=== PATIENT | female | born 1990 | race Caucasian/White ===

== ENCOUNTER 2017-01-21 11:51 | Emergency (ER) | payer MEDICAID, SELFPAY | END 2017-01-21 13:48 | disposition home or self-care (01) | PROVIDERS: Emergency Provider Emergency Medicine; Visit Provider Emergency Medicine | DX: F41.9 Anxiety disorder, unspecified (principal); Z79.899 Other long term (current) drug therapy | CPT/HCPCS: 93005; 99282 ==

== ENCOUNTER 2017-02-05 16:16 | Emergency (ER) | payer MEDICAID, SELFPAY | END 2017-02-05 16:41 | disposition home or self-care (01) | PROVIDERS: Family Provider Internal Medicine Adolescent Medicine | DX: J20.9 Acute bronchitis, unspecified (principal); F17.210 Nicotine dependence, cigarettes, uncomplicated | CPT/HCPCS: 87804; 87880 ==

== ENCOUNTER 2017-02-20 08:58 | Emergency (ER) | payer MEDICAID, SELFPAY ==
[2017-02-20 09:13] VITALS: BP 115/73; PULSE 91; RESP 18; TEMP 37.4; O2SAT 98; BMI 19.7
--- NOTE | 2017-02-20 09:17 | HMH.EDUTC ---
[facility] [place] Clinical Impression: Viral upper respiratory illness Disposition: Home, Self-Care Condition on Discharge: Good Instructions: Sore Throat, DI for Fever (Symptom) -- Adult Additional Instructions: * Monitor Temp. Tylenol and/or Ibuprofen as needed. ER if fever is no less than 101 despite alternating Tylenol and Ibuprofen * Encourage fluids, water, Gatorade, powerade, pedialyte if infant/toddler/or child * Warm salt water gargles for throat irritation *Warm fluids *Sore throat lozenges *Sleep elevated *humidifier or vaporizer Lots of rest Increase fluids, water, Gatorade, powerade Return if symptoms worsen or do not improve Prescriptions: Brompheniramine/Pseudoephed/Dm [Bromfed DM Cough Syrup 5mL] 10 ml PO Q4H #200 syrup Referrals: Ga Adair MD [Primary Care Provider] - Forms: Work/School Release Time of Disposition: 09:35 Medical Decision Making - Medical Records Medical records reviewed: Yes: I reviewed the patient's medical records. Vital Signs: 02/20/17 09:13 Temperature 99.4 F Temperature Source Temporal Artery Scan Pulse Rate [Right Radial] 91 H Respiratory Rate 18 Blood Pressure [Right Arm] 115/73 Blood Pressure Mean [Right Arm] 87 Blood Pressure Source [Right Arm] Automatic Cuff Blood Pressure Position [Right Arm] Sitting 02 Sat by Pulse Oximetry 98 Oxygen Delivery Method Room Air - Liborio Inquiry Pt receiving controlled substance: No Liborio was queried for this patient: No [facility] [place] - General Stated complaint: body aches sore throat headache Mode of Arrival: Family Vehicle Source of Information: Patient Limitations: No Limitations Description of Symptoms (Recalled from Triage Doc. by RN): flu like symptoms with fevers. HEENT Symptoms (Recalled from RN notes): Yes Resp Symptoms (Recalled from RN notes): Yes (flu like symptoms) Skin Symptoms (Recalled from RN notes): No MS Symptoms (Recalled from RN notes): No Functional Status (Recalled from RN notes): na - History of Present Illness Provider Complaint: Patient state that her roomate recently had that flu. State that she is having body aches, fever, chills and sore throat. States that she feels like she has the flu. State that symptoms began yesterday and got worse over night and this morning she feels worse. - Related Data Home Medications Medication Instructions Recorded Confirmed PARoxetine HCl [Paxil] 20 mg PO DAILY 02/20/17 02/20/17 hydrOXYzine pamoate [Hydroxyzine 50 mg PO QID 02/20/17 02/20/17 Pamoate] Previous Rx's Medication Instructions Recorded Brompheniramine/Pseudoephed/Dm 10 ml PO Q4H #200 syrup 02/20/17 [Bromfed DM Cough Syrup 5mL] Allergies Allergy/AdvReac Type Severity Reaction Status Date / Time latex [LATEX] Allergy Unknown Verified 02/20/17 09:18 - Worker's Comp Is this a Worker's Comp case?: No H History I have reviewed the patient's past medical history: Yes Medical History: Denies:: Cancer, Diabetes Mellitus Type 1, Diabetes Mellitus Type 2, MRSA Amputation: No Fractures: No - *Social History Smoking Status: Current every day smoker Tobacco Type: cigarettes Alcohol Intake: never - Psychiatric History Expresses thoughts of harming self/others: None Suicide Plan Description: No Plan ROS Obtained: Yes All systems reviewed & no additional complaints - Constitutional Constitutional: Reports body ache, Reports chills, Reports fever(s) - ENT Ears, Nose, Mouth, and Throat: Reports sore throat - Cardiovascular Cardiovascular: Denies chest pain - Respiratory Respiratory: Yes cough, Yes non-productive cough Physical Exam - General General appearance: alert, in no apparent distress - Expanded ENT Exam Nose exam: Present: sinus tenderness Comment: Throat red, irritated, no exudate - Respiratory Respiratory exam: Present: normal lung sounds bilaterally. Absent: respiratory distress - Cardiovascular Cardiovascular exam: Presen
--- NOTE | 2017-02-20 09:21 | ED_ITS ---
[facility] [place] Dis[place] Clinical Impression: Viral upper respiratory illness Disposition: Home, Self-Care Condition on Discharge: Good Instructions: Sore Throat, DI for Fever (Symptom) -- Adult Additional Instructions: * Monitor Temp. Tylenol and/or Ibuprofen as needed. ER if fever is no less than 101 despite alternating Tylenol and Ibuprofen * Encourage fluids, water, Gatorade, powerade, pedialyte if infant/toddler/or child * Warm salt water gargles for throat irritation *Warm fluids *Sore throat lozenges *Sleep elevated *humidifier or vaporizer Lots of rest Increase fluids, water, Gatorade, powerade Return if symptoms worsen or do not improve Prescriptions: Brompheniramine/Pseudoephed/Dm [Bromfed DM Cough Syrup 5mL] 10 ml PO Q4H #200 syrup Referrals: Ga Adair MD [Primary Care Provider] - Forms: Work/School Release Time of Disposition: 09:35 Medical Decision Making - Medical Records Medical records reviewed: Yes: I reviewed the patient's medical records. Vital Signs: 02/20/17 09:13 Temperature 99.4 F Temperature Source Temporal Artery Scan Pulse Rate [Right Radial] 91 H Respiratory Rate 18 Blood Pressure [Right Arm] 115/73 Blood Pressure Mean [Right Arm] 87 Blood Pressure Source [Right Arm] Automatic Cuff Blood Pressure Position [Right Arm] Sitting 02 Sat by Pulse Oximetry 98 Oxygen Delivery Method Room Air - Liborio Inquiry Pt receiving controlled substance: No Liborio was queried for this patient: No [facility] [place] HPI - General Stated complaint: body aches sore throat headache Mode of Arrival: Family Vehicle Source of Information: Patient Limitations: No Limitations Description of Symptoms (Recalled from Triage Doc. by RN): flu like symptoms with fevers. HEENT Symptoms (Recalled from RN notes): Yes Resp Symptoms (Recalled from RN notes): Yes (flu like symptoms) Skin Symptoms (Recalled from RN notes): No MS Symptoms (Recalled from RN notes): No Functional Status (Recalled from RN notes): na - History of Present Illness Provider Complaint: Patient state that her roomate recently had that flu. State that she is having body aches, fever, chills and sore throat. States that she feels like she has the flu. State that symptoms began yesterday and got worse over night and this morning she feels worse. - Related Data Home Medications Medication Instructions Recorded Confirmed PARoxetine HCl [Paxil] 20 mg PO DAILY 02/20/17 02/20/17 hydrOXYzine pamoate [Hydroxyzine 50 mg PO QID 02/20/17 02/20/17 Pamoate] Previous Rx's Medication Instructions Recorded Brompheniramine/Pseudoephed/Dm 10 ml PO Q4H #200 syrup 02/20/17 [Bromfed DM Cough Syrup 5mL] Allergies Allergy/AdvReac Type Severity Reaction Status Date / Time latex [LATEX] Allergy Unknown Verified 02/20/17 09:18 - Worker's Comp Is this a Worker's Comp case?: No H History I have reviewed the patient's past medical history: Yes Medical History: Denies:: Cancer, Diabetes Mellitus Type 1, Diabetes Mellitus Type 2, MRSA Amputation: No Fractures: No - *Social History Smoking Status: Current every day smoker Tobacco Type: cigarettes Alcohol Intake: never - Psychiatric History Expresses thoughts of harming self/others: None Suicide Plan Description: No Plan ROS Obtained: Yes All justin
[2017-02-20 09:27] LABS: UTC Influenza A Antigen Negative (Negative); UTC Influenza B Antigen Negative (Negative)
== END 2017-02-20 09:39 | disposition home or self-care (01) ==
PROVIDERS: Emergency Provider Nurse Practitioner; Family Provider Internal Medicine Adolescent Medicine; PCP Family Medicine
DX: J06.9 Acute upper respiratory infection, unspecified (principal); Z91.040 Latex allergy status; F17.210 Nicotine dependence, cigarettes, uncomplicated
CPT/HCPCS: 87804; 99202

== ENCOUNTER 2017-04-05 09:17 | Emergency (ER) | payer MEDICAID, SELFPAY ==
[2017-04-05 09:29] VITALS: BP 122/74; PULSE 102; RESP 18; TEMP 36.8; O2SAT 98; BMI 19.3
--- NOTE | 2017-04-05 09:36 | HMH.EDUTC ---
[facility] [place] Disposition Clinical Impression: Negative test Disposition: Home, Self-Care Condition on Discharge: Good Additional Instructions: Follow up with family doctor Return if needed Follow up with OBGYN Referrals: Ga Adair MD [Primary Care Provider] - Time of Disposition: 10:11 Medical Decision Making - Medical Records Medical records reviewed: Yes: I reviewed the patient's medical records. Vital Signs: 04/05/17 09:29 Temperature 98.2 F Temperature Source Temporal Artery Scan Pulse Rate [Right] 102 H Respiratory Rate 18 Blood Pressure [Right Arm] 122/74 Blood Pressure Mean [Right Arm] 90 02 Sat by Pulse Oximetry 98 Oxygen Delivery Method Room Air - Lab Data Lab Results 04/05/17 09:45: Serum HCG, Qual Negative - Liborio Inquiry Pt receiving controlled substance: No Liborio was queried for this patient: No - Reevaluation(s) Time: 10:10 Reevaluation #1: Lab results of negative discussed with patient and informed her about safe sexual practice to prevent unwanted [facility] [place] HPI - General Stated complaint: wants a blood test Mode of Arrival: Ambulatory Source of Information: Patient Limitations: No Limitations Description of Symptoms (Recalled from Triage Doc. by RN): WANTS A BLOOD TEST DONE HEENT Symptoms (Recalled from RN notes): No Resp Symptoms (Recalled from RN notes): No Skin Symptoms (Recalled from RN notes): No MS Symptoms (Recalled from RN notes): No Functional Status (Recalled from RN notes): N - History of Present Illness Provider Complaint: Patient states that she took a home test and not sure if she saw a faint line or not and was worried that she may be so she came in to get a blood test to find out for sure - Related Data Home Medications Medication Instructions Recorded Confirmed PARoxetine HCl [Paxil] 20 mg PO DAILY 02/20/17 02/20/17 hydrOXYzine pamoate [Hydroxyzine 50 mg PO QID 02/20/17 02/20/17 Pamoate] Previous Rx's Medication Instructions Recorded Brompheniramine/Pseudoephed/Dm 10 ml PO Q4H #200 syrup 02/20/17 [Bromfed DM Cough Syrup 5mL] Allergies Allergy/AdvReac Type Severity Reaction Status Date / Time latex [LATEX] Allergy Unknown Verified 03/07/17 16:11 - Worker's Comp Is this a Worker's Comp case?: No [facility] History I have reviewed the patient's past medical history: Yes Medical History: Denies:: Cancer, Diabetes Mellitus Type 1, Diabetes Mellitus Type 2, MRSA Comment: kidney stones Amputation: No Fractures: No - Social History Smoking Status: Current every day smoker Tobacco Type: cigarettes # Packs/Day (cigarettes): 10 Alcohol Intake: never - Psychiatric History Expresses thoughts of harming self/others: None Suicide Plan Description: No Plan Family Hx:: Diabetes ROS Obtained: Yes All systems reviewed & no additional complaints Physical Exam - General General appearance: alert, in no apparent distress - Respiratory Respiratory exam: Present: normal lung sounds bilaterally. Absent: respiratory distress - Cardiovascular Cardiovascular exam: Present: regular rate, normal rhythm. Absent: JVD - Neurological Exam Neurological exam: Present: alert, oriented X3
--- NOTE | 2017-04-05 09:39 | ED_ITS ---
[facility] [place] Disposition Clinical Impression: Negative test Disposition: Home, Self-Care Condition on Discharge: Good Additional Instructions: Follow up with family doctor Return if needed Follow up with OBGYN Referrals: Ga Adair MD [Primary Care Provider] - Time of Disposition: 10:11 Medical Decision Making - Medical Records Medical records reviewed: Yes: I reviewed the patient's medical records. Vital Signs: 04/05/17 09:29 Temperature 98.2 F Temperature Source Temporal Artery Scan Pulse Rate [Right] 102 H Respiratory Rate 18 Blood Pressure [Right Arm] 122/74 Blood Pressure Mean [Right Arm] 90 02 Sat by Pulse Oximetry 98 Oxygen Delivery Method Room Air - Lab Data Lab Results 04/05/17 09:45: Serum HCG, Qual Negative - Liborio Inquiry Pt receiving controlled substance: No Liborio was queried for this patient: No - Reevaluation(s) Time: 10:10 Reevaluation #1: Lab results of negative discussed with patient and informed her about safe sexual practice to prevent unwanted [facility] [place] HPI - General Stated complaint: wants a blood test Mode of Arrival: Ambulatory Source of Information: Patient Limitations: No Limitations Description of Symptoms (Recalled from Triage Doc. by RN): WANTS A BLOOD TEST DONE HEENT Symptoms (Recalled from RN notes): No Resp Symptoms (Recalled from RN notes): No Skin Symptoms (Recalled from RN notes): No MS Symptoms (Recalled from RN notes): No Functional Status (Recalled from RN notes): N - History of Present Illness Provider Complaint: Patient states that she took a home test and not sure if she saw a faint line or not and was worried that she may be so she came in to get a blood test to find out for sure - Related Data Home Medications Medication Instructions Recorded Confirmed PARoxetine HCl [Paxil] 20 mg PO DAILY 02/20/17 02/20/17 hydrOXYzine pamoate [Hydroxyzine 50 mg PO QID 02/20/17 02/20/17 Pamoate] Previous Rx's Medication Instructions Recorded Brompheniramine/Pseudoephed/Dm 10 ml PO Q4H #200 syrup 02/20/17 [Bromfed DM Cough Syrup 5mL] Allergies Allergy/AdvReac Type Severity Reaction Status Date / Time latex [LATEX] Allergy Unknown Verified 03/07/17 16:11 - Worker's Comp Is this a Worker's Comp case?: No [facility] History I have reviewed the patient's past medical history: Yes Medical History: Denies:: Cancer, Diabetes Mellitus Type 1, Diabetes Mellitus Type 2, MRSA Comment: kidney stones Amputation: No Fractures: No - Social History Smoking Status: Current every day smoker Tobacco Type: cigarettes # Packs/Day (cigarettes): 10 Alcohol Intake: never - Psychiatric History Expresses thoughts of harming self/others: None Suicide Plan Description: No Plan Family Hx:: Diabetes ROS Obtained: Yes All systems reviewed & no additional complaints Physical Exam - General General appearance: alert, in no apparent distress - Respiratory Respiratory exam: Present: normal lung sounds bilaterally. Absent: respiratory distress - Cardiovascular Cardiovascular exam: Present: regular rate, normal rhythm. Absent: JVD - Neurological Exam Neurological exam: Present: alert, or
[2017-04-05 10:05] LABS: HCG Qualitative, Serum Negative (Negative)
[2017-04-05 10:13] LABS: UTC Pregnancy Test, Urine Negative (Negative)
[2017-04-05 10:18] VITALS: BP 120/74; PULSE 88; RESP 16; TEMP 36.8
== END 2017-04-05 10:20 | disposition home or self-care (01) ==
PROVIDERS: Emergency Provider Nurse Practitioner; Family Provider Internal Medicine Adolescent Medicine; PCP Family Medicine
DX: Z32.02 Encounter for pregnancy test, result negative (principal); Z72.0 Tobacco use
CPT/HCPCS: 81025; 84703; 99202

== ENCOUNTER 2017-04-25 09:20 | Emergency (ER) | payer MEDICAID, SELFPAY ==
[2017-04-25 09:38] VITALS: BP 106/63; PULSE 97; RESP 20; TEMP 36.9; O2SAT 98; BMI 19.3
[2017-04-25 10:02] LABS: UTC Pregnancy Test, Urine Negative (Negative)
--- NOTE | 2017-04-25 10:03 | HMH.EDUTC ---
[facility] [place] Clinical Impression: confirmed by positive blood test, Suprapubic pain, acute, Spotting UTI (urinary tract infection) Qualifiers: Urinary tract infection type: site unspecified Hematuria presence: with hematuria Qualified Code(s): N39.0 - Urinary tract infection, site not specified Disposition: Still a Patient Condition on Discharge: Fair Time of Disposition: 10:45 (transfer to ER) Medical Decision Making - Liborio Inquiry Pt receiving controlled substance: No Vital Signs: 04/25/17 09:38 Temperature 98.4 F Temperature Source Oral Pulse Rate [Right Radial] 97 H Respiratory Rate 20 Blood Pressure [Right Arm] 106/63 Blood Pressure Mean [Right Arm] 77 02 Sat by Pulse Oximetry 98 Oxygen Delivery Method Room Air - Lab Data Lab results reviewed: Yes: I reviewed the patient's lab results. Lab Results 04/25/17 09:31: [facility] Negative 04/25/17 09:51: Serum HCG, Qual Positive 04/25/17 10:06: Urine Color Yellow, Urine Appearance Cloudy, Urine pH 6.0, Ur Specific [place] 1.025, Urine Protein Negative, Urine Glucose (UA) Negative, Urine Ketones Negative, Urine Blood Trace, Urine Nitrate Negative, Urine Bilirubin Negative, Urine Urobilinogen 0.2, Ur Leukocyte Esterase 1+ A Orders (Tests/Meds): ORDERS Category Date Time Status Urine Culture Stat Micro 04/25/17 10:10 Received - Reevaluation(s) Reevaluation #1: Pt aware of negative urine . Wants blood test. Pt aware of concerning dark, cloudy urine with foul odor. Agrees to U/A. Discussed U/A results and how they can correlate to symptoms. pt wanting transferred to ER for pelvic ultrasound to ensure everything ok . Discussed approximate gestation based on LMP and her symptoms. Aware transfer to ER does not guarantee a further evaluation and may be directed to follow up with Dr. Perez. States + understanding and still requesting transfer to ER. 1047: Report given to Denise [facility] and Dr. Pisano ER . Pt to room 9. [facility] [place] - General Stated complaint: check to see if Time Seen by Provider: 04/25/17 10:03 Mode of Arrival: Family Vehicle Source of Information: Patient Limitations: No Limitations Description of Symptoms (Recalled from Triage Doc. by RN): PT STATES SHE HAS HAD 4 POSITIVE HOME TEST. HEENT Symptoms (Recalled from RN notes): No Resp Symptoms (Recalled from RN notes): No Skin Symptoms (Recalled from RN notes): No MS Symptoms (Recalled from RN notes): No Functional Status (Recalled from RN notes): NA - History of Present Illness Provider Complaint: c/o need for blood test. Five home test were positive yesterday and pt isn't sure what to believe. Has upcoming appt w/ Dr. Perez on May 12. Worried about spotting yesterday and suprapubic cramping intermittently. LMP 03/09. On several medications for anxiety but pt reports she hasn't been taking them. One living 2 year old at home. - Related Data Home Medications Medication Instructions Recorded Confirmed PARoxetine HCl [Paxil] 20 mg PO DAILY 02/20/17 04/25/17 Gabapentin [Gabapentin 300mg Cap] 300 mg PO DAILY 04/25/17 04/25/17 clonazePAM [Klonopin 1mg tablet] 1 mg PO DAILY 04/25/17 04/25/17 diazePAM [diazePAM 5mg Tablet] 5 mg PO DAILY 04/25/17 04/25/17 Allergies Allergy/AdvReac Type Severity Reaction Status Date / Time latex [LATEX] Allergy Unknown Verified 04/25/17 09:46 - Worker's Comp Is this a Worker's Comp case?: No [facility] History I have reviewed the patient's past medical history: Yes Medical History: Reports:: Anxiety Denies:: Cancer, Diabetes Mellitus Type 1, Diabetes Mellitus Type 2, Hypertension, MRSA Comment: kidney stones Amputation: No Fractures: No - Social History Smoking Status: Current every day smoker Tobacco Type: cigarettes # Packs/Day (cigarettes): 10 Alcohol Intake: never - Psychiatric History Expresses thoughts of harming self/others: None Suicide Plan Desc
--- NOTE | 2017-04-25 10:08 | ED_ITS ---
[facility] [place] [place]ression: confirmed by positive blood test, Suprapubic pain, acute, Spotting UTI (urinary tract infection) Qualifiers: Urinary tract infection type: site unspecified Hematuria presence: with hematuria Qualified Code(s): N39.0 - Urinary tract infection, site not specified Disposition: Still a Patient Condition on Discharge: Fair Time of Disposition: 10:45 (transfer to ER) Medical Decision Making - Liborio Inquiry Pt receiving controlled substance: No Vital Signs: 04/25/17 09:38 Temperature 98.4 F Temperature Source Oral Pulse Rate [Right Radial] 97 H Respiratory Rate 20 Blood Pressure [Right Arm] 106/63 Blood Pressure Mean [Right Arm] 77 02 Sat by Pulse Oximetry 98 Oxygen Delivery Method Room Air - Lab Data Lab results reviewed: Yes: I reviewed the patient's lab results. Lab Results 04/25/17 09:31: [facility] Negative 04/25/17 09:51: Serum HCG, Qual Positive 04/25/17 10:06: Urine Color Yellow, Urine Appearance Cloudy, Urine pH 6.0, Ur Specific [place] 1.025, Urine Protein Negative, Urine Glucose (UA) Negative, Urine Ketones Negative, Urine Blood Trace, Urine Nitrate Negative, Urine Bilirubin Negative, Urine Urobilinogen 0.2, Ur Leukocyte Esterase 1+ A Orders (Tests/Meds): ORDERS Category Date Time Status Urine Culture Stat Micro 04/25/17 10:10 Received - Reevaluation(s) Reevaluation #1: Pt aware of negative urine . Wants blood test. Pt aware of concerning dark, cloudy urine with foul odor. Agrees to U/A. Discussed U/A results and how they can correlate to symptoms. pt wanting transferred to ER for pelvic ultrasound to ensure everything ok . Discussed approximate gestation based on LMP and her symptoms. Aware transfer to ER does not guarantee a further evaluation and may be directed to follow up with Dr. Perez. States + understanding and still requesting transfer to ER. 1047: Report given to Denise WELT SEWER and Dr. Pisano ER . Pt to room 9. [facility] [place] General Stated complaint: check to see if Time Seen by Provider: 04/25/17 10:03 Mode of Arrival: Family Vehicle Source of Information: Patient Limitations: No Limitations Description of Symptoms (Recalled from Triage Doc. by RN): PT STATES SHE HAS HAD 4 POSITIVE HOME TEST. HEENT Symptoms (Recalled from RN notes): No Resp Symptoms (Recalled from RN notes): No Skin Symptoms (Recalled from RN notes): No MS Symptoms (Recalled from RN notes): No Functional Status (Recalled from RN notes): NA - History of Present Illness Provider Complaint: c/o need for blood test. Five home test were positive yesterday and pt isn't sure what to believe. Has upcoming appt w/ Dr. Perez on May 12. Worried about spotting yesterday and suprapubic cramping intermittently. LMP 2/. On several medications for anxiety but pt reports she hasn't been taking them. One living 2 year old at home. - Related Data Home Medications Medication Instructions Recorded Confirmed PARoxetine HCl [Paxil] 20 mg PO DAILY 02/20/17 04/25/17 Gabapentin [Gabapentin 300mg Cap] 300 mg PO DAILY 04/25/17 04/25/17 clonazePAM [Klonopin 1mg tablet] 1 mg PO DAILY 04/25/17 04/25/17 diazePAM [diazePAM 5mg Tablet] 5 mg PO DAILY 04/25/17 04/25/17 Allergies Allergy/AdvReac Type Severity Reaction Status Date / Time latex [LATEX] Allergy Unknown [facility]
[2017-04-25 10:17] LABS: Apearance,Urine Cloudy (Clear); Bilirubin,Urine Negative (Negative); Blood, Urine Trace (Negative); Color,Urine Yellow (Yellow); Glucose,Urine (UA) Negative (Negative); Ketones,Urine Negative (Negative); Protein,Urine Negative (Negative); Specific Gravity, Urine 1.025 (1.005-1.030)
[2017-04-25 10:18] LABS: UTC Leukocyte Esterase,Urine 1+ (Negative); UTC Nitrate,Urine Negative (Negative); Urobilinogen,Urine 0.2 EU/dl (0.2)
[2017-04-25 10:22] LABS: HCG Qualitative, Serum Positive (Negative)
[2017-04-25 10:52] VITALS: BP 112/68; PULSE 85; RESP 18; TEMP 36.7; O2SAT 99; BMI 19.3
--- NOTE | 2017-04-25 11:05 | HMH.EDGENADL ---
ED Disposition Clinical Impression: Vaginal bleeding during Qualifiers: Weeks of gestation: less than 8 weeks Qualified Code(s): Z3A.01 - Less than 8 weeks gestation of UTI (urinary tract infection) Qualifiers: Urinary tract infection type: acute cystitis Hematuria presence: without hematuria Qualified Code(s): N30.00 - Acute cystitis without hematuria Disposition: Home, Self-Care Condition on Discharge: Good Instructions: DI for Urinary Tract Infection (UTI) Additional Instructions: Return to outpatient lab in 2 days to have a quantitative beta hCG level drawn. Call Dr. Perez's office later that day to obtain the results and to arrange further follow-up. Also follow-up urine culture results from Dr. Perez in 2 days. Additional instructions for URINARY TRACT INFECTION: See your physician as soon as possible for further evaluation. Return immediately if you have an uncontrollable fever greater than 102 degrees, severe back or abdominal pain, inability to urinate, or repetetive vomiting. Prescriptions: cephALEXin [Keflex 500mg Cap] 500 mg PO TID #21 cap Referrals: Ga Adair MD [Primary Care Provider] - - Critical Care Critical Care Time: No Attestation: On 04/25/17, the high probability of a clinically significant, sudden or life threatening deterioration of the following system(s) required my full and direct attention, intervention and personal management. The time I documented below is in addition to time spent performing reported procedures but includes the following listed in this critical care notation. Medical Decision Making - Liborio Inquiry Pt receiving controlled substance: No Vital Signs: 04/25/17 09:38 04/25/17 10:52 Temperature 98.4 F 98.1 F Temperature Source Oral Oral Pulse Rate [Right Radial] 97 H 85 Respiratory Rate 20 18 Blood Pressure [Right Arm] 106/63 112/68 Blood Pressure Mean [Right Arm] 77 82 Blood Pressure Source [Right Arm] Automatic Cuff Blood Pressure Position [Right Arm] Standing 02 Sat by Pulse Oximetry 98 99 Oxygen Delivery Method Room Air Room Air - Lab Data Lab Results 04/25/17 09:31: [facility] Clinic Negative 04/25/17 09:51: Serum HCG, Qual Positive 04/25/17 09:51: WBC 4.5 L, RBC 4.24, Hgb 13.3, Hct 40.9, MCV 96.3, MCH 31.4 H, MCHC 32.6, RDW 12.9, Plt Count 309, MPV 7.5, Neut % (Auto) 54.4, Lymph % (Auto) 35.7, [place] % (Auto) 7.7, Eos % (Auto) 2.0, Baso % (Auto) 0.3, Neut # (Auto) 2.5, Lymph # (Auto) 1.6, [place] # (Auto) 0.4, Eos # (Auto) 0.1, Baso # (Auto) 0.0 04/25/17 09:51: HCG, Quant 8 H 04/25/17 10:06: Urine Color Yellow, Urine Appearance Cloudy, Urine pH 6.0, Ur Specific [place] 1.025, Urine Protein Negative, Urine Glucose (UA) Negative, Urine Ketones Negative, Urine Blood Trace, Urine Nitrate Negative, Urine Bilirubin Negative, Urine Urobilinogen 0.2, Ur Leukocyte Esterase 1+ A 04/25/17 10:10: Urine Color Yellow, Urine Appearance Clear, Urine pH 6.0, Ur Specific [place] 1.025, Urine Protein Negative, Urine Glucose (UA) Negative, Urine Ketones Negative, Urine Blood Negative, Urine Nitrate Negative, Urine Bilirubin Negative, Urine Urobilinogen 0.2, Ur Leukocyte Esterase 2+ A, Urine RBC None, Urine WBC 5-10, Ur Squamous Epith Cells None, Urine Bacteria 2+, Urine Mucus 4+ Result diagrams: 04/25/17 09:51 Orders (Tests/Meds): ORDERS Category Date Time Status Urine Culture Stat Micro 04/25/17 10:10 Received US OB transvaginal Stat Ultrasound 04/25/17 11:12 Taken - US Data US Images: Pelvis Findings Narrative: As per [facility] procedure, ultrasound report received from pathology lab technician: No visible in uterus. No signs of ectopic . Medical Decision Narrative: The patient's quantitative beta hCG is only 8 with nothing visible on ultrasound. Most likely explanation is spontaneous miscarriage. Much less likely would be extremely early . I have explained this to the patient. S
--- NOTE | 2017-04-25 11:12 | US_ITS ---
US OB transvaginal CLINICAL INDICATION: ITS.REASON: bleeding, cramping, , r/o ectopic ORDERING PHYSICIAN: Ramy Pisano MD PATIENT AGE: 26 years COMPARISON: None FINDINGS: The uterus is retroverted. No endometrial sac is demonstrated. The endometrium is thickened at 1 cm. Uterus measures 6 x 4 x 5 cm. Left ovary is 2.9 x 1.6 cm and contains small follicles. Right ovary is 4 x 2 cm and contains small follicles. Scant amount of fluid around the uterus. IMPRESSION: No intrauterine gestational sac evident. Possibly due to early to see an IUP. Please correlate with serial beta hCGs and possible follow-up pelvic ultrasound
[2017-04-25 12:24] LABS: Basophils % 0.3 % (0.1-2.0); Eosinophils # 0.1 K/mm3 (0.0-0.4); Hematocrit 40.9 % (37.0-47.0); Hemoglobin 13.3 g/dL (12.2-16.2); Lymphocytes # 1.6 K/mm3 (0.7-4.5); Lymphocytes % 35.7 K/mm3 (10-50); Mean Corpuscular HGB Conc 32.6 g/dL (31.8-35.4); Mean Corpuscular Hemoglobin 31.4 pg (27.0-31.2); Mean Corpuscular Volume 96.3 fl (81-99); Mean Platelet Volume 7.5 fl (7.4-10.4); Monocytes # 0.4 K/mm3 (0.1-1.0); Monocytes % 7.7 % (1.7-9.3); Neutrophils # 2.5 K/mm3 (1.8-7.8); Neutrophils % 54.4 % (37.0-80.0); Platelet Count 309 K/mm3 (142-424); Red Blood Count 4.24 M/mm3 (4.20-5.40); Red Cell Distribution Width 12.9 % (11.5-17.5); White Blood Count 4.5 K/mm3 (4.8-10.8)
[2017-04-25 12:42] LABS: HCG,Quantitative 8 mIU/mL
[2017-04-25 13:14] LABS: Microscopic, Urine URINE MICROSCOPIC (MICROSCOPIC)
[2017-04-25 13:15] LABS: Appearance,Urine CLEAR (Clear); Bilirubin,Urine Negative (Negative); Blood, Urine Negative (Negative); Color,Urine YELLOW (Yellow); Glucose,Urine (UA) Negative (Negative); Ketones,Urine Negative (Negative); Leukocyte Esterase,Urine 2+ (Negative); Nitrate,Urine Negative (Negative); Protein,Urine Negative (Negative); Specific Gravity, Urine 1.025 (1.005-1.030); Urobilinogen,Urine 0.2 EU/dl (0.2)
[2017-04-25 13:34] LABS: Bacteria,Urine 2+ /lpf; Mucus,Urine 4+ /lpf
[2017-04-25 14:11] VITALS: BP 108/42; PULSE 81; RESP 16; TEMP 37.1; O2SAT 99
== END 2017-04-25 14:13 | disposition home or self-care (01) ==
LOC: UTC 10:39 → ER 10:56
PROVIDERS: Nurse Practitioner Family; Emergency Provider Emergency Medicine; Family Provider Internal Medicine Adolescent Medicine; PCP Family Medicine
DX: N39.0 Urinary tract infection, site not specified (principal); Z91.040 Latex allergy status; Z32.01 Encounter for pregnancy test, result positive
CPT/HCPCS: 76830; 81001; 81003; 81025; 84702; 84703; 85025; 87086; 99283

== ENCOUNTER 2017-04-26 21:32 | Emergency (ER) | payer MEDICAID, SELFPAY ==
[2017-04-26 21:35] VITALS: BP 114/75; PULSE 80; RESP 20; TEMP 37.1; O2SAT 99; BMI 19.3
[2017-04-26 21:58] LABS: Basophils % 0.3 % (0.1-2.0); Eosinophils # 0.1 K/mm3 (0.0-0.4); Eosinophils % 1.7 % (0.1-12.0); Hematocrit 38.7 % (37.0-47.0); Hemoglobin 12.8 g/dL (12.2-16.2); Lymphocytes % 33.7 K/mm3 (10-50); Mean Corpuscular HGB Conc 33.1 g/dL (31.8-35.4); Mean Corpuscular Hemoglobin 31.5 pg (27.0-31.2); Mean Corpuscular Volume 95.2 fl (81-99); Mean Platelet Volume 7.3 fl (7.4-10.4); Monocytes # 0.4 K/mm3 (0.1-1.0); Monocytes % 6.4 % (1.7-9.3); Neutrophils # 3.4 K/mm3 (1.8-7.8); Neutrophils % 57.8 % (37.0-80.0); Platelet Count 320 K/mm3 (142-424); Red Blood Count 4.06 M/mm3 (4.20-5.40); Red Cell Distribution Width 13.1 % (11.5-17.5); White Blood Count 5.8 K/mm3 (4.8-10.8)
--- NOTE | 2017-04-26 22:02 | HMH.EDPREG ---
ED Disposition Clinical Impression: Vaginal bleeding during Disposition: Home, Self-Care Condition on Discharge: Good Instructions: DI for Vaginal Bleeding Additional Instructions: call pcp and dr marinelli in am Referrals: Ga Adair MD [Primary Care Provider] - - Critical Care Critical Care Time: No Attestation: On 04/26/17, the high probability of a clinically significant, sudden or life threatening deterioration of the following system(s) required my full and direct attention, intervention and personal management. The time I documented below is in addition to time spent performing reported procedures but includes the following listed in this critical care notation. Medical Decision Making - Medical Records Medical records reviewed: Yes: I reviewed the patient's medical records. - Liborio Inquiry Pt receiving controlled substance: No Vital Signs: 04/26/17 21:35 Temperature 98.7 F Temperature Source Oral Pulse Rate [Right Radial] 80 Respiratory Rate 20 Blood Pressure [Right Arm] 114/75 Blood Pressure Mean [Right Arm] 88 02 Sat by Pulse Oximetry 99 - Lab Data Lab Results 04/26/17 21:48: WBC 5.8 D, RBC 4.06 L, Hgb 12.8, Hct 38.7, MCV 95.2, MCH 31.5 H, MCHC 33.1, RDW 13.1, Plt Count 320, MPV 7.3 L, Neut % (Auto) 57.8, Lymph % (Auto) 33.7, [place] % (Auto) 6.4, Eos % (Auto) 1.7, Baso % (Auto) 0.3, Neut # (Auto) 3.4, Lymph # (Auto) 2.0, [place] # (Auto) 0.4, Eos # (Auto) 0.1, Baso # (Auto) 0.0 04/26/17 21:48: Sodium 143, Potassium 3.6, Chloride 106, Carbon Dioxide 27, Anion Gap 13.6, BUN 10, Creatinine 0.71, Estimated Creat Clear 99, Estimated GFR 101, Est GFR ( Amer) 122, Glucose 102, Calcium 9.0, Total Bilirubin 0.2, AST 13 L, ALT 21, Alkaline Phosphatase 75, Total Protein 7.5, Albumin 4.7, Globulin 2.8, Albumin/Globulin Ratio 1.7, HCG, Quant 5 H Result diagrams: 04/26/17 21:48 04/26/17 21:48 Orders (Tests/Meds): ED MEDICATIONS Generic Name Dose Route Start Last Admin Trade Name Henry PRN Reason Stop Dose Admin Sodium Chloride 1,000 mls @ 999 mls/hr 04/26/17 22:00 04/26/17 21:49 Sod Chlor 0.9% 1000ml Bag IV 04/26/17 23:00 999 mls/hr .Q1H1M GREYSON Administration Sodium Chloride 1,000 mls @ 999 mls/hr 04/26/17 22:00 04/26/17 21:53 Sod Chlor 0.9% 1000ml Bag IV 04/26/17 23:00 999 mls/hr .Q1H1M GREYSON Administration ORDERS Category Date Time Status ABO/RH Type Stat BBK 04/26/17 22:15 Received - Physician Consults Physician Consulted: anthony Reason -: Pt condition HPI - General Chief complaint: Vaginal Bleeding Stated complaint: Preg with vag Bleeding Time Seen by Provider: 04/26/17 22:02 Mode of Arrival: Family Vehicle Source of Information: Patient, Significant Other, Medical Record Limitations: No Limitations Description of Symptoms (Recalled from ER Triage Doc. by RN): PT FOUND OUT SHE WAS A COUPLE DAYS AGO, YESTERDAY MY HCG LEVEL WAS 8. PT WAS TOLD TO F/U TOMORROW TO RECHECK LEVELS. PT STATES SHE BEGAN HAVING VAGINAL BLEEDING TODAY. - History of Present Illness HPI Narrative: pt with spotting and no sig pain with hx of early MD Complaint: abdominal pain Onset (ago): day(s) Consistency: intermittent Severity: moderate Vaginal bleeding: light : yes Date of Last Menstrual Period: 03/09/17 - Related Data Para: 1 Home Medications Medication Instructions Recorded Confirmed cephALEXin [Keflex 500mg Cap] 500 mg PO TID 04/26/17 04/26/17 Allergies Allergy/AdvReac Type Severity Reaction Status Date / Time latex [LATEX] Allergy Unknown Verified 04/25/17 09:46 [facility] History I have reviewed the patient's past medical history: Yes Medical History: Reports:: Anxiety Denies:: Cancer, Diabetes Mellitus Type 1, Diabetes Mellitus Type 2, Hypertension, MRSA Comment: kidney stones Amputation: No Fractures: No - Social History Smoking Status: Current every day smoker Tobacco Type: ciga
--- NOTE | 2017-04-26 22:05 | ED_ITS ---
ED Disposition Clinical Impression: Vaginal bleeding during Disposition: Home, Self-Care Condition on Discharge: Good Instructions: DI for Vaginal Bleeding Additional Instructions: call pcp and dr marinelli in am Referrals: Ga Adair MD [Primary Care Provider] - - Critical Care Critical Care Time: No Attestation: On 04/26/17, the high probability of a clinically significant, sudden or life threatening deterioration of the following system(s) required my full and direct attention, intervention and personal management. The time I documented below is in addition to time spent performing reported procedures but includes the following listed in this critical care notation. Medical Decision Making - Medical Records Medical records reviewed: Yes: I reviewed the patient's medical records. - Liborio Inquiry Pt receiving controlled substance: No Vital Signs: 04/26/17 21:35 Temperature 98.7 F Temperature Source Oral Pulse Rate [Right Radial] 80 Respiratory Rate 20 Blood Pressure [Right Arm] 114/75 Blood Pressure Mean [Right Arm] 88 02 Sat by Pulse Oximetry 99 - Lab Data Lab Results 04/26/17 21:48: WBC 5.8 D, RBC 4.06 L, Hgb 12.8, Hct 38.7, MCV 95.2, MCH 31.5 H , MCHC 33.1, RDW 13.1, Plt Count 320, MPV 7.3 L, Neut % (Auto) 57.8, Lymph % ( Auto) 33.7, [place] % (Auto) 6.4, Eos % (Auto) 1.7, Baso % (Auto) 0.3, Neut # (Auto ) 3.4, Lymph # (Auto) 2.0, [place] # (Auto) 0.4, Eos # (Auto) 0.1, Baso # (Auto) 0.0 04/26/17 21:48: Sodium 143, Potassium 3.6, Chloride 106, Carbon Dioxide 27, Anion Gap 13.6, BUN 10, Creatinine 0.71, Estimated Creat Clear 99, Estimated GFR 101, Est GFR ( Amer) 122, Glucose 102, Calcium 9.0, Total Bilirubin 0.2, AST 13 L, ALT 21, Alkaline Phosphatase 75, Total Protein 7.5, Albumin 4.7, Globulin 2.8, Albumin/Globulin Ratio 1.7, HCG, Quant 5 H Result diagrams: 04/26/17 21:48 04/26/17 21:48 Orders (Tests/Meds): ED MEDICATIONS Generic Name Dose Route Start Last Admin Trade Name Henry PRN Reason Stop Dose Admin Sodium Chloride 1,000 mls @ 999 mls/hr 04/26/17 22:00 04/26/17 21:49 Sod Chlor 0.9% 1000ml Bag IV 04/26/17 23:00 999 mls/hr .Q1H1M GREYSON Administration Sodium Chloride 1,000 mls @ 999 mls/hr 04/26/17 22:00 04/26/17 21:53 Sod Chlor 0.9% 1000ml Bag IV 04/26/17 23:00 999 mls/hr .Q1H1M GREYSON Administration ORDERS Category Date Time Status ABO/RH Type Stat BBK 04/26/17 22:15 Received - Physician Consults Physician Consulted: anthony Reason -: Pt condition HPI - General Chief complaint: Vaginal Bleeding Stated complaint: Preg with vag Bleeding Time Seen by Provider: 04/26/17 22:02 Mode of Arrival: Family Vehicle Source of Information: Patient, Significant Other, Medical Record Limitations: No Limitations Description of Symptoms (Recalled from ER Triage Doc. by RN): PT FOUND OUT SHE WAS A COUPLE DAYS AGO, YESTERDAY MY HCG LEVEL WAS 8. PT WAS TOLD TO F/U TOMORROW TO RECHECK LEVELS. PT STATES SHE BEGAN HAVING VAGINAL BLEEDING TODAY. - History of Present Illness HPI Narrative: pt with spotting and no sig pain with hx of early MD Complaint: abdominal pain Onset (ago): day(s) Consistency: intermittent Severity: moderate Vaginal bleeding: light : yes Date of Last Menstrual Period: 03/09/17 - Related Data
[2017-04-26 22:21] LABS: Alanine Aminotransferase 21 U/L (12-78); Albumin Level 4.7 gm/dL (3.4-5.0); Albumin/Globulin Ratio 1.7 (1.1-1.8); Alkaline Phosphatase 75 U/L (46-116); Anion Gap 13.6 mEq/L (5-15); Aspartate Amino Transferase 13 U/L (15-37); Bilirubin,Total 0.2 mg/dL (0.2-1.0); Blood Urea Nitrogen 10 mg/dL (7-18); Carbon Dioxide 27 mmol/L (21.0-32.0); Chloride 106 mmol/L (98-107); Creatinine Clearance Estimated 99 mL/min (0-300); Creatinine,Serum 0.71 mg/dL (0.55-1.02); Estimated Glomerular Filt Rate 101 ml/min (>60); GFR (African American) 122 ML/MIN (>60); Globulin 2.8 gm/dl (1.3-3.2); Glucose 102 mg/dL (74-106); Potassium 3.6 mmoL/L (3.5-5.1); Sodium 143 mmol/L (136-145); Total Protein,Serum 7.5 gm/dL (6.4-8.2)
[2017-04-26 22:22] LABS: HCG,Quantitative 5 mIU/mL
--- NOTE | 2017-04-26 22:53 | PC.NURSE ---
Dr. Gianfranco marin.
--- NOTE | 2017-04-26 22:55 | PC.NURSE ---
Dr. Downey speaking with Dr. Medel.
[2017-04-26 23:09] VITALS: BP 121/70; PULSE 79; RESP 20; TEMP 37.1; O2SAT 98
== END 2017-04-26 23:09 | disposition home or self-care (01) ==
PROVIDERS: Emergency Provider Emergency Medicine; Family Provider Internal Medicine Adolescent Medicine; PCP Family Medicine
DX: O20.9 Hemorrhage in early pregnancy, unspecified (principal); Z91.040 Latex allergy status; F17.210 Nicotine dependence, cigarettes, uncomplicated; Z34.90 Encounter for supervision of normal pregnancy, unspecified, unspecified trimester
CPT/HCPCS: 36415; 80053; 84702; 85025; 86900; 86901; 96365; 99282

== ENCOUNTER → 2017-04-27 08:32 | Outpatient (CLI) | payer MEDICAID, SELFPAY ==
[2017-04-27 10:07] LABS: HCG,Quantitative 3 mIU/mL
== END ==
PROVIDERS: Visit Provider Emergency Medicine
DX: Z32.00 Encounter for pregnancy test, result unknown (principal)
CPT/HCPCS: 36415; 84702

== ENCOUNTER 2017-04-28 08:25 | Day surgery (SDC) | payer MEDICAID, SELFPAY ==
[2017-04-28] VITALS (14 sets, daily range): BP systolic 85–109; BP diastolic 47–70; PULSE 54–68; RESP 16–20; TEMP 36.3–37.1; O2SAT 97–100
--- NOTE | 2017-04-28 08:54 | P.PN_ITS ---
[facility] Anesthesia Checklist - Patient Identification Patient Identification: Arm Band, Verbal (Name & ) - Structural Data Admitted From: Home Planned Operative Procedure/s: d & e Consent for Planned Operative Procedure(s) Verified: Yes Verified Documents: Surgical Consent - NPO Status Verified Time NPO: 00:00 - Additional verifications Patient : No Anesthesia Reactions: No Hx Blood Transfusions: No Blood Transfusion Reaction: No Cephalosporin Allergy: No Previous Colonoscopy: No - Cardiovascular Assessment Heart Sounds: S1 & S2 Pulse Strength: Baseline Pulse Rhythm: Regular Peripheral Edema: No - Airway Assessment C-Spine Mobility Assessed: Yes TMJ Mobility Assessed: Yes Dentition: Good Dentition - Neurological Assessment Level of Consciousness: Awake, Alert, Appropriate Hx Seizures: No Numbness or tingling in extremities: No - Anesthesia Plan Anesthesia Risk discussed: Yes Anesthesia Plan: Verified ASA Class: I Anesthesia Type: General [facility] Anesthesia HX I have reviewed the patient's past medical history: Yes Medical History: Reports:: Anxiety, Kidney Stones Denies:: Cancer, Diabetes Mellitus Type 1, Diabetes Mellitus Type 2, Hypertension, MRSA Other Surgeries: Yes: No Previous Surgery Amputation: No Fractures: No *Family Hx:: Diabetes, Hypertension
--- NOTE | 2017-04-28 09:56 | HMH.OPNOTE ---
Date of procedure: 04/28/17 Pre-op Diagnosis:: Incomplete spontaneous Post-op Diagnosis:: Incomplete spontaneous Procedure performed:: Dilatation and suction curettage Surgeon:: Yossi Perez MD FELT CUTTING MACHINE OPERATOR:: Ga Ambriz Anesthesia: GETHardy Estimated blood loss (mL): 10 Operative findings:: Possibly spontaneously completed Operative note:: After the patient was prepped and draped in usual fashion and general anesthesia was, examination under anesthesia revealed a slightly enlarged anteverted uterus, with no palpable adnexal masses (there had been a suggestion of a right ovarian cyst previously). A weighted speculum was placed within the posterior fourchette of the vagina, and the anterior lip of the cervix was grasped with a single-tooth tenaculum. The cervix was open, and then easily dilated to #20 Hegar dilators. The uterus sounded to 7 cm. A sharp curette was introduced into the endometrial cavity, with retrieval of minimal tissue. This was followed by suction with a #7 curved suction tip, and again by sharp curettage and suction, until it was felt that the cavity was clean. Reexamination revealed no evidence of an adnexal mass. The instruments were removed. The sponge and needle count was correct. The estimated blood loss was 10 cc. The patient tolerated the procedure well, was taken to PACU in excellent condition. Her blood type is Rh+, and therefore she is not a candidate for RhoGam. She will be discharged today, if her vital signs are stable. Condition: stable Disposition: same day Specimens:: Products of conception Complications:: None none
--- NOTE | 2017-04-28 09:59 | P.OP_ITS ---
Date of procedure: 04/28/17 Pre-op Diagnosis:: Incomplete spontaneous Post-op Diagnosis:: Incomplete spontaneous Procedure performed:: Dilatation and suction curettage Surgeon:: Yossi Perez MD PIPE INSULATOR:: Ga Ambriz Anesthesia: GETHardy Estimated blood loss (mL): 10 Operative findings:: Possibly spontaneously completed Operative note:: After the patient was prepped and draped in usual fashion and general anesthesia was, examination under anesthesia revealed a slightly enlarged anteverted uterus, with no palpable adnexal masses (there had been a suggestion of a right ovarian cyst previously). A weighted speculum was placed within the posterior fourchette of the vagina, and the anterior lip of the cervix was grasped with a single-tooth tenaculum. The cervix was open, and then easily dilated to #20 Hegar dilators. The uterus sounded to 7 cm. A sharp curette was introduced into the endometrial cavity, with retrieval of minimal tissue. This was followed by suction with a #7 curved suction tip, and again by sharp curettage and suction, until it was felt that the cavity was clean. Reexamination revealed no evidence of an adnexal mass. The instruments were removed. The sponge and needle count was correct. The estimated blood loss was 10 cc. The patient tolerated the procedure well, was taken to PACU in excellent condition. Her blood type is Rh+, and therefore she is not a candidate for RhoGam. She will be discharged today, if her vital signs are stable. Condition: stable Disposition: same day Specimens:: Products of conception Complications:: None none
--- NOTE | 2017-04-28 10:07 | P.PN_ITS ---
[facility] Anesthesia Record Part I Intake, IV Amount: 300 Estimated blood loss (mL): 25 Urine output (mL): 10 Blood Products used (#): none Blood Pressure: 85/48 SaO2: 99 Pulse Rate: 54 Respiratory Rate: 18 Temperature: 97.3 F Patient is:: Drowsy, Stable Stable to PACU at:: 10:06
--- NOTE | 2017-04-28 10:08 | P.PN_ITS ---
[facility] Anesthesia Record Part II Discharge Time: 10:36 Destination: Surgical Day Care (OP Surgery) PACU nurse assessment reviewed?: Yes Patient Condition:: Good Anesthesia Complications:: None
[2017-04-28 11:27] LABS: Hemoglobin 12.2 g/dL (12.2-16.2)
--- NOTE | 2017-04-28 12:24 | PC.NURSE ---
1016-O2 @ 2l/nc applied r/t decrease in o2 sats. Sats improved w/application of O2, will continue to monitor.
--- NOTE | 2017-04-28 12:30 | PC.NURSE ---
1036-Pt reports c/o feelings of anxiety. Notified anesthesia at this time who ordered for pt to take home medications as normal for anxiety after discussion w/. Pt reports cramping is easing a little. Applied warm blankets to abdomen for comfort. VSS. Pt stable.
--- NOTE | 2017-04-28 12:34 | PC.NURSE ---
1044-detailed report called to ANALI Gonzalez. Pt has eaten full cup of ice chips w/out difficulty. Denies nausea. VSS. 1046-Pt transported to post op via stretcher w/rails up and left in care of ANALI Gonzalez w/bed locked in lowest position. VSS. Pt stable.
== END 2017-04-28 12:25 | disposition home or self-care (01) ==
LOC: OR 08:26
PROVIDERS: Family Provider Internal Medicine Adolescent Medicine; PCP Family Medicine; Visit Provider Obstetrics & Gynecology
PROC: (CPT 59812; principal; 2017-04-28 10:15)
DX: O03.4 Incomplete spontaneous abortion without complication (principal)
CPT/HCPCS: 59812; 85014; 85018; 96374; J2405

== ENCOUNTER → 2017-07-25 12:47 | Outpatient (CLI) | payer MEDICAID, SELFPAY ==
[2017-07-25 13:36] LABS: Basophils % 0.3 % (0.1-2.0); Eosinophils # 0.1 K/mm3 (0.0-0.4); Eosinophils % 0.6 % (0.1-12.0); Hemoglobin 12.5 g/dL (12.2-16.2); Lymphocytes # 1.7 K/mm3 (0.7-4.5); Lymphocytes % 17.2 K/mm3 (10-50); Mean Corpuscular HGB Conc 32.2 g/dL (31.8-35.4); Mean Corpuscular Hemoglobin 30.6 pg (27.0-31.2); Mean Corpuscular Volume 95.1 fl (81-99); Mean Platelet Volume 7.2 fl (7.4-10.4); Monocytes # 0.5 K/mm3 (0.1-1.0); Monocytes % 4.7 % (1.7-9.3); Neutrophils # 7.6 K/mm3 (1.8-7.8); Neutrophils % 77.1 % (37.0-80.0); Platelet Count 389 K/mm3 (142-424); Red Cell Distribution Width 12.8 % (11.5-17.5); White Blood Count 9.8 K/mm3 (4.8-10.8)
[2017-07-25 17:39] LABS: Thyroid Stimulating Hormone 0.74 uIU/ml (0.358-3.740)
[2017-07-25 22:59] LABS: Amphetamine/Metha Screen,Urine Negative ng/mL (<1000); Barbiturates Screen,Urine Negative ng/mL (<200); Benzodiazepines Screen,Urine Negative ng/mL (200); Cannabinoid Screen,Urine Negative ng/mL (<50); Cocaine Screen,Urine Negative ng/g (<300); Methadone Screen,Urine Negative ng/mL (<300); Opiate Screen,Urine Negative ng/mL (<300); Phencyclidine Screen,Urine Negative ng/mL (<25)
[2017-07-27 06:20] LABS: HIV Screen 4th Generation wRfx Non Reactive (Non Reactive); Hepatitis B Surface Antigen Negative (Negative)
== END ==
PROVIDERS: Family Provider Internal Medicine Adolescent Medicine; PCP Family Medicine; Visit Provider Obstetrics & Gynecology
DX: Z34.90 Encounter for supervision of normal pregnancy, unspecified, unspecified trimester (principal)
CPT/HCPCS: 36415; 80305; 84443; 84702; 85025; 86703; 86850; 87340; G0432

== ENCOUNTER → 2017-10-06 14:21 | Outpatient (CLI) | payer MEDICAID, SELFPAY ==
[2017-10-12 00:14] LABS: AFP Value 48.3 ng/mL (.); DIA MoM 1.44 (.); DIA Value 278.57 pg/mL (.); DSR (Second Trimester) 1 IN 2956 (.); Gest. Age on Collection Date 16.7 WEEKS (.); Maternal Age At EDD 25.6 yr (.); OSBR Risk 1 IN 7850 (.); Results Report (.); hCG MoM 0.86 (.); hCG Value 33770 mIU/mL (.); uE3 Value 0.79 ng/mL (.)
[2017-10-12 08:33] LABS: Gestat. Age Based On EDD (.)
== END ==
PROVIDERS: Family Provider Internal Medicine Adolescent Medicine; PCP Family Medicine; Visit Provider Obstetrics & Gynecology
DX: Z34.90 Encounter for supervision of normal pregnancy, unspecified, unspecified trimester (principal)
CPT/HCPCS: 36415; 82106

== ENCOUNTER 2017-10-26 20:01 | Outpatient (CLI) | payer SELFPAY ==
[2017-10-26 20:12] VITALS: BMI 21.2
[2017-10-26 20:31] VITALS: BP 107/53; PULSE 91; RESP 18; TEMP 37.1; O2SAT 94; BMI 21.2
[2017-10-26 20:44] LABS: Microscopic, Urine URINE MICROSCOPIC (MICROSCOPIC)
[2017-10-26 21:00] LABS: Appearance,Urine CLOUDY (Clear); Bilirubin,Urine Negative (Negative); Blood, Urine Negative (Negative); Color,Urine YELLOW (Yellow); Glucose,Urine (UA) Negative (Negative); Ketones,Urine Negative (Negative); Leukocyte Esterase,Urine 2+ (Negative); Nitrate,Urine Negative (Negative); PH,Urine 8.5 (5.0-8.5); Protein,Urine Negative (Negative); Specific Gravity, Urine 1.015 (1.005-1.030); Urobilinogen,Urine 0.2 EU/dl (0.2)
[2017-10-26 21:10] LABS: Bacteria,Urine 3+ /lpf; Squamous Epithelial Cell,Urine Occasional #/hpf (0-5); WBC,Urine Occasional #/hpf (0-3)
== END 2017-10-26 21:55 | disposition home or self-care (01) ==
LOC: OBOUT 20:05 → OB 20:05
PROVIDERS: PCP Obstetrics & Gynecology; Visit Provider Obstetrics & Gynecology
DX: O36.8120 Decreased fetal movements, second trimester, not applicable or unspecified (principal); Z3A.20 20 weeks gestation of pregnancy; R10.84 Generalized abdominal pain
CPT/HCPCS: 59025; 81001; 87086

== ENCOUNTER 2017-10-31 12:44 | Outpatient (CLI) | payer SELFPAY ==
[2017-10-31 13:09] VITALS: BMI 21.6
[2017-10-31 13:15] LABS: Microscopic, Urine URINE MICROSCOPIC (MICROSCOPIC)
[2017-10-31 13:29] LABS: Appearance,Urine CLOUDY (Clear); Bilirubin,Urine Negative (Negative); Blood, Urine 1+ (Negative); Color,Urine YELLOW (Yellow); Glucose,Urine (UA) Negative (Negative); Ketones,Urine Negative (Negative); Leukocyte Esterase,Urine 3+ (Negative); Nitrate,Urine Negative (Negative); Protein,Urine Negative (Negative); Specific Gravity, Urine 1.015 (1.005-1.030); Urobilinogen,Urine 0.2 EU/dl (0.2)
[2017-10-31 13:52] LABS: Bacteria,Urine 3+ /lpf; Squamous Epithelial Cell,Urine TNTC #/hpf (0-5); WBC,Urine 20-50 #/hpf (0-3)
[2017-10-31 14:05] VITALS: BP 104/63; PULSE 93; RESP 18; TEMP 36.9; O2SAT 100; BMI 21.6
== END 2017-10-31 14:05 | disposition home or self-care (01) ==
LOC: OBOUT 12:47 → OB 12:49
PROVIDERS: PCP Family Medicine; Visit Provider Obstetrics & Gynecology
DX: O26.892 Other specified pregnancy related conditions, second trimester (principal); Z3A.20 20 weeks gestation of pregnancy; R10.9 Unspecified abdominal pain
CPT/HCPCS: 59025; 81001; 87086

== ENCOUNTER 2017-11-26 16:02 | Outpatient (CLI) | payer MEDICAID, SELFPAY ==
[2017-11-26 16:30] VITALS: BP 106/58; PULSE 90; RESP 20; TEMP 36.9; O2SAT 98; BMI 22.6
[2017-11-26 17:29] LABS: Microscopic, Urine URINE MICROSCOPIC (MICROSCOPIC)
[2017-11-26 17:33] LABS: Appearance,Urine CLOUDY (Clear); Bilirubin,Urine Negative (Negative); Blood, Urine Negative (Negative); Color,Urine YELLOW (Yellow); Glucose,Urine (UA) Negative (Negative); Ketones,Urine Negative (Negative); Leukocyte Esterase,Urine 1+ (Negative); Nitrate,Urine Negative (Negative); Protein,Urine Negative (Negative); Specific Gravity, Urine 1.015 (1.005-1.030); Urobilinogen,Urine 0.2 EU/dl (0.2)
[2017-11-26 17:46] LABS: Bacteria,Urine 4+ /lpf
== END 2017-11-26 17:45 | disposition home or self-care (01) ==
LOC: OBOUT 16:04 → OB 16:04
PROVIDERS: PCP Family Medicine; Visit Provider Obstetrics & Gynecology
DX: O26.892 Other specified pregnancy related conditions, second trimester (principal); Z3A.24 24 weeks gestation of pregnancy; M54.5 Low back pain; R10.84 Generalized abdominal pain
CPT/HCPCS: 59025; 81001; 87086

== ENCOUNTER → 2017-12-25 10:07 | Outpatient (CLI) | payer MEDICAID, SELFPAY | PROVIDERS: Visit Provider Obstetrics & Gynecology | DX: N39.0 Urinary tract infection, site not specified (principal) | CPT/HCPCS: 87086 ==

== ENCOUNTER 2017-12-27 22:08 | Outpatient (CLI) | payer MEDICAID, SELFPAY ==
[2017-12-27 23:12] VITALS: BMI 21.9
[2017-12-27 23:30] VITALS: BP 113/64; PULSE 90; RESP 18; TEMP 36.9; O2SAT 100
[2017-12-27 23:38] LABS: Microscopic, Urine URINE MICROSCOPIC (MICROSCOPIC)
[2017-12-27 23:40] LABS: Appearance,Urine CLEAR (Clear); Blood, Urine Negative (Negative); Color,Urine YELLOW (Yellow); Glucose,Urine (UA) Negative (Negative); Ketones,Urine 1+ (Negative); Leukocyte Esterase,Urine TRACE (Negative); Nitrate,Urine Negative (Negative); Protein,Urine TRACE (Negative); Specific Gravity, Urine 1.025 (1.005-1.030)
[2017-12-27 23:41] LABS: Bilirubin,Urine Negative (Negative)
[2017-12-28 00:08] VITALS: BMI 21.9
[2017-12-28 00:13] LABS: Bacteria,Urine 1+ /lpf; Mucus,Urine 1+ /lpf
== END 2017-12-28 01:20 | disposition home or self-care (01) ==
LOC: OBOUT 22:12 → OB 22:13
PROVIDERS: PCP Obstetrics & Gynecology; Visit Provider Obstetrics & Gynecology
DX: O26.893 Other specified pregnancy related conditions, third trimester (principal); Z3A.28 28 weeks gestation of pregnancy; R10.9 Unspecified abdominal pain; R10.2 Pelvic and perineal pain
CPT/HCPCS: 81001; 96360

== ENCOUNTER 2018-01-28 18:59 | Outpatient (CLI) | payer MEDICAID, SELFPAY ==
[2018-01-28 19:09] VITALS: BMI 22.2
[2018-01-28 19:16] LABS: Microscopic, Urine URINE MICROSCOPIC (MICROSCOPIC)
[2018-01-28 19:22] LABS: Appearance,Urine CLOUDY (Clear); Bilirubin,Urine Negative (Negative); Blood, Urine Negative (Negative); Color,Urine YELLOW (Yellow); Glucose,Urine (UA) Negative (Negative); Ketones,Urine Negative (Negative); Leukocyte Esterase,Urine 1+ (Negative); Nitrate,Urine Negative (Negative); PH,Urine 7.5 (5.0-8.5); Protein,Urine Negative (Negative); Specific Gravity, Urine 1.025 (1.005-1.030); Urobilinogen,Urine 0.2 EU/dl (0.2)
[2018-01-28 19:26] LABS: Amorphous Sediment,Urine 4+ /lpf
[2018-01-28 19:48] VITALS: BP 113/63; PULSE 104; RESP 18; TEMP 37.1; O2SAT 100; BMI 22.2
[2018-01-28 19:59] LABS: Fetal Membrane Rupture (Rapid) Negative (Negative)
== END 2018-01-28 22:30 | disposition home or self-care (01) ==
LOC: OBOUT 19:00 → OB 19:01
PROVIDERS: PCP Family Medicine; Visit Provider Nurse Practitioner Obstetrics & Gynecology
DX: O26.893 Other specified pregnancy related conditions, third trimester (principal); R52 Pain, unspecified; Z3A.33 33 weeks gestation of pregnancy
CPT/HCPCS: 59025; 81001; 84112; 87086; 96360; 96372

== ENCOUNTER → 2018-02-02 15:59 | Outpatient (CLI) | payer MEDICAID, SELFPAY | LOC: LAB 16:01 → LAB.DROPOF 02-03 17:12 | PROVIDERS: Visit Provider Obstetrics & Gynecology | DX: Z34.90 Encounter for supervision of normal pregnancy, unspecified, unspecified trimester (principal) | CPT/HCPCS: 86403 ==

== ENCOUNTER 2018-02-06 12:14 | Outpatient (CLI) | payer MEDICAID, SELFPAY ==
[2018-02-06 12:23] VITALS: BMI 24.0
[2018-02-06 12:32] VITALS: BP 106/57; PULSE 101; RESP 16; TEMP 36.9; O2SAT 97; BMI 24.0
[2018-02-06 13:23] LABS: Fetal Fibronectin (Rapid) Negative (Negative)
[2018-02-06 13:36] LABS: Microscopic, Urine URINE MICROSCOPIC (MICROSCOPIC)
[2018-02-06 13:38] LABS: Appearance,Urine SL CLOUDY (Clear); Bilirubin,Urine Negative (Negative); Blood, Urine 3+ (Negative); Color,Urine YELLOW (Yellow); Glucose,Urine (UA) Negative (Negative); Ketones,Urine Negative (Negative); Leukocyte Esterase,Urine TRACE (Negative); Nitrate,Urine Negative (Negative); PH,Urine 7.5 (5.0-8.5); Protein,Urine Negative (Negative)
[2018-02-06 13:50] LABS: Bacteria,Urine Trace /lpf; RBC,Urine 50-100 #/hpf (0-3); Squamous Epithelial Cell,Urine Occasional #/hpf (0-5); WBC,Urine Occasional #/hpf (0-3)
== END 2018-02-06 13:55 | disposition home or self-care (01) ==
LOC: OBOUT 12:16 → OB 12:17
PROVIDERS: PCP Family Medicine; Visit Provider Obstetrics & Gynecology
DX: O26.893 Other specified pregnancy related conditions, third trimester (principal); Z3A.34 34 weeks gestation of pregnancy; R10.9 Unspecified abdominal pain
CPT/HCPCS: 59025; 81001; 82731

== ENCOUNTER 2018-03-12 04:41 | Inpatient (IN) ==
[2018-03-12 05:38] LABS: Basophils % 0.2 % (0.1-2.0); Eosinophils # 0.1 K/mm3 (0.0-0.4); Eosinophils % 1.1 % (0.1-12.0); Hematocrit 32.5 % (37.0-47.0); Hemoglobin 10.8 g/dL (12.2-16.2); Lymphocytes # 2.6 K/mm3 (0.7-4.5); Lymphocytes % 22.5 % (10-50); Mean Corpuscular HGB Conc 33.3 g/dL (31.8-35.4); Mean Corpuscular Hemoglobin 33.3 pg (27.0-31.2); Mean Corpuscular Volume 100.1 fl (81-99); Mean Platelet Volume 8.3 fl (7.4-10.4); Monocytes # 0.9 K/mm3 (0.1-1.0); Neutrophils # 7.8 K/mm3 (1.8-7.8); Neutrophils % 68.1 % (37.0-80.0); Platelet Count 275 K/mm3 (142-424); Red Blood Count 3.25 M/mm3 (4.20-5.40); Red Cell Distribution Width 13.5 % (11.5-17.5); White Blood Count 11.4 K/mm3 (4.8-10.8)
[2018-03-12 05:39] VITALS: BP 102/58
--- NOTE | 2018-03-12 06:21 | Progress Note ---
Internal Medicine - PN: Subj *Date: 03/12/18 *Time: 06:19 Interval history: This 27-year-old 3, para 1, Ab1 white female is admitted at 39-1/7 weeks with irregular contractions at 3 cm of dilatation. The presenting vertex is posterior at -2 station. An amniotomy revealed clear fluid, and toco has been placed. She will be augmented with intravenous Pitocin, and will receive an epidural at her request. Exam Vital signs and Labs for Last 24 Hours: Temp Pulse Resp BP 98.6 F 80 18 102/58 L 03/12/18 05:21 03/12/18 05:21 03/12/18 05:21 03/12/18 05:21 Laboratory Results - last 24 hr 03/12/18 05:30: WBC 11.4 H, RBC 3.25 L, Hgb 10.8 L, Hct 32.5 L, MCV 100.1 H, MCH 33.3 H, MCHC 33.3, RDW 13.5, Plt Count 275, MPV 8.3, Neut % (Auto) 68.1, Lymph % (Auto) 22.5, [place] % (Auto) 8.0, Eos % (Auto) 1.1, Baso % (Auto) 0.2, Neut # (Auto) 7.8, Lymph # (Auto) 2.6, [place] # (Auto) 0.9, Eos # (Auto) 0.1, Baso # (Auto) 0.0 I & O for Last 24 hours: Intake & Output 03/09/18 03/10/18 03/11/18 03/12/18 11:59 11:59 11:59 11:59 Weight 152 lb
--- NOTE | 2018-03-12 07:13 | Progress Note ---
Internal Medicine - PN: Subj *Date: 03/12/18 *Time: 07:13 Interval history: Epidural is now in situ, and contractions are becoming regular. Cervix is now 90%, 4 cm, with the presenting vertex at -1 station. An internal electrode has been placed. Exam Vital signs and Labs for Last 24 Hours: Temp Pulse Resp BP 98.6 F 80 18 102/58 L 03/12/18 05:21 03/12/18 05:21 03/12/18 05:21 03/12/18 05:21 Laboratory Results - last 24 hr 03/12/18 05:30: WBC 11.4 H, RBC 3.25 L, Hgb 10.8 L, Hct 32.5 L, MCV 100.1 H, MCH 33.3 H, MCHC 33.3, RDW 13.5, Plt Count 275, MPV 8.3, Neut % (Auto) 68.1, Lymph % (Auto) 22.5, [place] % (Auto) 8.0, Eos % (Auto) 1.1, Baso % (Auto) 0.2, Neut # (Auto) 7.8, Lymph # (Auto) 2.6, [place] # (Auto) 0.9, Eos # (Auto) 0.1, Baso # (Auto) 0.0 03/12/18 05:30: Blood Type A Positive, Antibody Screen Negative I & O for Last 24 hours: Intake & Output 03/09/18 03/10/18 03/11/18 03/12/18 11:59 11:59 11:59 11:59 Weight 152 lb
--- NOTE | 2018-03-12 07:14 | Progress Note ---
[facility] Anesthesia Checklist - Patient Identification Patient Identification: Arm Band, Verbal (Name & ) - Structural Data Admitted From: Home Planned Operative Procedure/s: Labor epidural Consent for Planned Operative Procedure(s) Verified: Yes Verified Documents: Surgical Consent, History and Physical - Chart Verification Results Verified: CBC - Additional verifications Patient : Yes Anesthesia Reactions: No - Airway Assessment C-Spine Mobility Assessed: Yes TMJ Mobility Assessed: Yes Dentition: Poor Dentition (missing teeth) - Neurological Assessment Level of Consciousness: Awake Hx Seizures: No Numbness or tingling in extremities: No - Anesthesia Plan Anesthesia Risk discussed: Yes Anesthesia Plan: Verified ASA Class: II Anesthesia Type: Epidural [facility] History I have reviewed the patient's past medical history: Yes Medical History: Reports:: Anxiety, Kidney Stones Have you ever received a pneumonia vaccine?: No Have you received a flu vaccine this season?: No Other Medical History: Reports: Other Other Surgeries: Yes: No Previous Surgery, Other. No: Amputation: No Fractures: No - *Social History Smoking Status: Current every day smoker Tobacco Type: cigarettes # Packs/Day (cigarettes): 1 Alcohol Intake: never Alcohol Intake Frequency:: other Substance Use Type: denies use Occupational Status: employed Housing: apartment Household Members: family, children - Psychiatric History Pschychiatric History:: Reports:: Anxiety *Family Hx:: Diabetes, Hypertension Para: 1
--- NOTE | 2018-03-12 08:29 | Progress Note ---
Internal Medicine - PN: Subj *Date: 03/12/18 *Time: 08:28 Interval history: Cervix is now completely effaced, 5 cm, with the presenting vertex at 0 station. The internal electrode had dislodged and has been replaced. The patient is comfortable with her epidural. Exam Vital signs and Labs for Last 24 Hours: Temp Pulse Resp BP 98.6 F 80 18 102/58 L 03/12/18 05:21 03/12/18 05:21 03/12/18 05:21 03/12/18 05:21 Laboratory Results - last 24 hr 03/12/18 05:30: WBC 11.4 H, RBC 3.25 L, Hgb 10.8 L, Hct 32.5 L, MCV 100.1 H, MCH 33.3 H, MCHC 33.3, RDW 13.5, Plt Count 275, MPV 8.3, Neut % (Auto) 68.1, Lymph % (Auto) 22.5, [place] % (Auto) 8.0, Eos % (Auto) 1.1, Baso % (Auto) 0.2, Neut # (Auto) 7.8, Lymph # (Auto) 2.6, [place] # (Auto) 0.9, Eos # (Auto) 0.1, Baso # (Auto) 0.0 03/12/18 05:30: Blood Type A Positive, Antibody Screen Negative I & O for Last 24 hours: Intake & Output 03/09/18 03/10/18 03/11/18 03/12/18 11:59 11:59 11:59 11:59 Weight 152 lb
--- NOTE | 2018-03-12 09:47 | Progress Note ---
Internal Medicine - PN: Subj *Date: 03/12/18 *Time: 09:47 Interval history: Vertex is now completely effaced, 6 cm, with the presenting vertex at 0 station. Exam Vital signs and Labs for Last 24 Hours: Temp Pulse Resp BP 98.6 F 80 18 102/58 L 03/12/18 05:21 03/12/18 05:21 03/12/18 05:21 03/12/18 05:21 Laboratory Results - last 24 hr 03/12/18 05:30: WBC 11.4 H, RBC 3.25 L, Hgb 10.8 L, Hct 32.5 L, MCV 100.1 H, MCH 33.3 H, MCHC 33.3, RDW 13.5, Plt Count 275, MPV 8.3, Neut % (Auto) 68.1, Lymph % (Auto) 22.5, [place] % (Auto) 8.0, Eos % (Auto) 1.1, Baso % (Auto) 0.2, Neut # (Auto) 7.8, Lymph # (Auto) 2.6, [place] # (Auto) 0.9, Eos # (Auto) 0.1, Baso # (Auto) 0.0 03/12/18 05:30: Blood Type A Positive, Antibody Screen Negative I & O for Last 24 hours: Intake & Output 03/09/18 03/10/18 03/11/18 03/12/18 11:59 11:59 11:59 11:59 Weight 152 lb
--- NOTE | 2018-03-12 11:42 | Progress Note ---
Internal Medicine - PN: Subj *Date: 03/12/18 *Time: 11:00 Interval history: Cervix now complete, complete, +2. Exam Vital signs and Labs for Last 24 Hours: Temp Pulse Resp BP 98.6 F 80 18 102/58 L 03/12/18 05:21 03/12/18 05:21 03/12/18 05:21 03/12/18 05:21 Laboratory Results - last 24 hr 03/12/18 05:30: WBC 11.4 H, RBC 3.25 L, Hgb 10.8 L, Hct 32.5 L, MCV 100.1 H, MCH 33.3 H, MCHC 33.3, RDW 13.5, Plt Count 275, MPV 8.3, Neut % (Auto) 68.1, Lymph % (Auto) 22.5, Colbert % (Auto) 8.0, Eos % (Auto) 1.1, Baso % (Auto) 0.2, Neut # (Auto) 7.8, Lymph # (Auto) 2.6, Colbert # (Auto) 0.9, Eos # (Auto) 0.1, Baso # (Auto) 0.0 03/12/18 05:30: Blood Type A Positive, Antibody Screen Negative I & O for Last 24 hours: Intake & Output 03/09/18 03/10/18 03/11/18 03/12/18 11:59 11:59 11:59 11:59 Weight 152 lb
--- NOTE | 2018-03-12 13:09 | Progress Note ---
Delivery date: 03/12/18 Events: Labor Augmentation Intrapartal events: None Induction method: none Delivery augmentation: rupture of membranes, pitocin Delivery monitor: internal FHT, internal uterine Route of delivery: Episiotomy description: None Laceration description: None Estimated blood loss (mL): 350 Anesthesia type: Epidural Disposition: floor Complications: None - Baby 1 presentation: Vertex position: Right Occiput Anterior Placenta delivery description: Spontaneous cord vessel description: 3 Vessels
--- NOTE | 2018-03-12 13:15 | Procedure Note ---
- Delivery Note Delivery Date:: 03/12/18 Delivery Time:: 11:46 Anesthesia Type: Epidural Was labor medically induced?: Yes Induction method: per pitocin protocol Gestational age (weeks): 39 delivered prior to 39 weeks?: No Gender: Male at 1 minute: 8 at 5 minutes: 9 Suction Catheter Type: Tessa AF:: clear Delivery Procedure:: This 27-year-old 3, now para 2, AB 1 white female was admitted at 39-1/7 weeks with irregular contractions at 3 cm of dilatation. She was augmented with intravenous Pitocin, and an amniotomy revealed clear fluid. An internal monitor was placed, and the baby looked good throughout her labor. She labored under a labor epidural, which worked well. She went steadily to completion, and delivered spontaneously, without an episiotomy, at 1146. There was a loose nuchal cord x1, which was easily reduced. The baby's nasal and oropharynx were bulb suction, and the baby cried spontaneously, on the perineum, as was delivered. The cord was clamped and cut, 3 vessels were noted to be within the cord, and cord blood was obtained. The cord pH was 7.41. The baby was handed into the arms of the attending RN, who assigned Apgars of 8 at 1 minute and 9 at 5 minutes to this 7 pound 0 ounce, 19.5 inch male infant, born at 1146. The placenta delivered spontaneously, intact, at 1147, making the total time in labor 6 hours 47 minutes. The uterus was inspected and was felt to be clean, and was involuting well, with IV Pitocin running. A rectovaginal exam at the close of the procedure demonstrated the integrity of that septum. The sponge and needle count was correct. The estimated blood loss was 350 cc. The patient tolerated the procedure well, and was recovered in excellent condition. Her blood type is A+. Her rubella titer is immune. She plans to breast-feed. Placental Delivery Description: Spontaneous
[2018-03-13 06:12] LABS: Hematocrit 28.9 % (37.0-47.0); Hemoglobin 9.7 g/dL (12.2-16.2)
--- NOTE | 2018-03-13 08:12 | Progress Note ---
Internal Medicine - PN: Subj *Date: 03/13/18 *Time: 08:12 Interval history: This is day #1. The patient is afebrile. Vital signs stable. Lochia normal. Uterine fundus involuting well. Hemoglobin is 9.7 g (initially 10.8 g), but clinically stable. Impression: Stable. Exam Vital signs and Labs for Last 24 Hours: Temp Pulse Resp BP 98.6 F 80 18 102/58 L 03/12/18 05:21 03/12/18 05:21 03/12/18 05:21 03/12/18 05:21 Laboratory Results - last 24 hr 03/12/18 11:59: Cord ABG pH 7.41 03/13/18 05:48: Hgb 9.7 L, Hct 28.9 L I & O for Last 24 hours: Intake & Output 03/10/18 03/11/18 03/12/18 03/13/18 11:59 11:59 11:59 11:59 Weight 152 lb
--- NOTE | 2018-03-14 08:53 | Progress Note ---
Internal Medicine - PN: Subj *Date: 03/14/18 *Time: 08:52 Interval history: This is day #2. The patient is afebrile. Vital signs stable. Abdomen soft. Lochia normal. Uterine fundus involuting well. She will be discharged today. Exam Vital signs and Labs for Last 24 Hours: Temp Pulse Resp BP 98.6 F 80 18 102/58 L 03/12/18 05:21 03/12/18 05:21 03/12/18 05:21 03/12/18 05:21 Laboratory Results - last 24 hr 03/12/18 05:30: Rubella IgG Antibody <0.90 L I & O for Last 24 hours: Intake & Output 03/11/18 03/12/18 03/13/18 03/14/18 11:59 11:59 11:59 11:59 Weight 152 lb
--- NOTE | 2018-03-14 08:55 | Discharge Summary ---
General - General Admission date:: 03/12/18 Discharge date: 03/14/18 (This 27-year-old 3, now para 2, AB 1 white female was admitted at 39 1 ounce weeks with irregular contractions at 3 cm of dilatation. She was augmented with intravenous Pitocin, and labored under a labor epidural, which worked well. She went steadily to completion and delivered spontaneously, without an episiotomy, at 1146 on 03/13/18. The baby was an 8/9, 7 pound 0 ounce, 19.5 inch male , who is breast-feeding, has been circumcised, and is done well. , the patient is done well. She is eating and ambulating abdomen is soft. Her lochia is normal. Her uterine fundus is involuting well. Her hemoglobin on admission was 10.8 g; it is 9.7 g, but she is clinically stable. She is not a smoker. She is discharged home on the second day on. She is given appropriate instructions as to diet and exercise, and she is to return the office in 3 weeks for follow-up. Her blood type is A+. Her rubella titer is immune.) Hospital Course Rhogam Administration: Not Indicated Objective Vital signs: Temp Pulse Resp BP 98.6 F 80 18 102/58 L 03/12/18 05:21 03/12/18 05:21 03/12/18 05:21 03/12/18 05:21 Results Labs on day of discharge: Labs from last 24 hours 03/12/18 05:30 Rubella IgG Antibody <0.90 L Discharge Plan - Patient Discharge Instructions Additional Instructions: No heavy lifting, No strenuous activity, Nothing in the vagina for 6 weeks. Make a 2 week follow up appointment to see Dr. Perez. Patient Instructions: DI for Hemorrhage, DI for Labor and Delivery, Vaginal , DI for Depression - Follow up Plan Home Medications: Home Medications Medication Instructions Recorded Confirmed Type ferrous sulfate 325 mg (65 mg 325 mg PO DAILY tab 09/04/17 03/12/18 History iron) tablet,delayed release vitamins-iron fumarate 27 1 tab PO DAILY tab 09/04/17 03/12/18 History mg iron-folic acid 0.8 mg tablet Butalb/Acetaminophen/Caffeine 1 cap PO Q6HP PRN 03/13/18 03/13/18 History [Lphxpn-Dnmfusxe-Zbbi 50-300-40] Prescriptions/Medication Reconciliation: No Action ferrous sulfate 325 mg (65 mg iron) tablet,delayed release 325 mg PO DAILY tab vitamins-iron fumarate 27 mg iron-folic acid 0.8 mg tablet 1 tab PO DAILY tab Butalb/Acetaminophen/Caffeine [Eskypw-Rtqaidjh-Mzgp 50-300-40] 1 cap PO Q6HP PRN PRN Reason: headache
== END 2018-03-14 10:35 | disposition home or self-care (01) | DRG 807 ==
LOC: OB 04:41
PROVIDERS: ADMIT Nurse Practitioner Obstetrics & Gynecology; ATTEND Obstetrics & Gynecology
CPT/HCPCS: C1758

== ENCOUNTER 2018-06-09 17:47 | Emergency (ER) | payer MEDICAID, SELFPAY ==
[2018-06-09 18:01] VITALS: BP 111/58; PULSE 63; RESP 18; TEMP 36.6; O2SAT 98; BMI 21.1
--- NOTE | 2018-06-09 18:27 | HMH.EDUTC ---
[facility] [place] Disposition Clinical Impression: Migraine Qualifiers: Migraine type: unspecified Status migrainosus presence: without status migrainosus Intractability: intractable Qualified Code(s): G43.919 - Migraine, unspecified, intractable, without status migrainosus Disposition: Home, Self-Care Condition on Discharge: Good Instructions: Migraine -- Adult, Migraine -- Child Additional Instructions: Go home lay down and try to sleep off remainder of headache Return if needed Take prescribed medication for headache as directed by your physician Follow up with family doctor Straight to ER if any life threatening symptoms Referrals: Ga Adair MD [Primary Care Provider] - As needed Time of Disposition: 19:00 Medical Decision Making - Liborio Inquiry Pt receiving controlled substance: No Liborio was queried for this patient: No Vital Signs: 06/09/18 18:01 Temperature 97.9 F Temperature Source Oral Pulse Rate [Right Brachial] 63 Respiratory Rate 18 Blood Pressure [Right Arm] 111/58 L Blood Pressure Mean [Right Arm] 75 Blood Pressure Source [Right Arm] Automatic Cuff Blood Pressure Position [Right Arm] Sitting 02 Sat by Pulse Oximetry 98 Oxygen Delivery Method Room Air Orders (Tests/Meds): ED MEDICATIONS Discontinued Medications Generic Name Dose Route Start Last Admin Trade Name Freq PRN Reason Stop Dose Admin Diphenhydramine HCl 25 mg 06/09/18 18:31 06/09/18 18:41 Benadryl 50mg/1ml Vial IM 06/09/18 18:32 25 mg ONCE ONE Administration Ketorolac Tromethamine 60 mg 06/09/18 18:31 Toradol 60mg/2ml Vial IM 06/09/18 18:32 ONCE ONE Ketorolac Tromethamine 30 mg 06/09/18 18:34 06/09/18 18:41 Toradol 30mg/Ml Vial IM 06/09/18 18:35 30 mg ONCE ONE Administration Ondansetron HCl 4 mg 06/09/18 18:31 06/09/18 18:41 Zofran 4mg Odt SL 06/09/18 18:32 4 mg ONCE ONE Administration - Reevaluation(s) Time: 18:59 Reevaluation #1: States that headache is better after medication patient to be dc'd home [facility] [place] HPI - General Stated complaint: migraine Time Seen by Provider: 06/09/18 18:27 Mode of Arrival: Family Vehicle Source of Information: Patient Limitations: No Limitations Description of Symptoms (Recalled from Triage Doc. by RN): C/O MIGRAINE X 3 DAYS HEENT Symptoms (Recalled from RN notes): Yes Resp Symptoms (Recalled from RN notes): No Skin Symptoms (Recalled from RN notes): No MS Symptoms (Recalled from RN notes): No Functional Status (Recalled from RN notes): N/A - History of Present Illness Provider Complaint: Patient states that she has a history of migraine headaches State that she started having migraine about 3 days ago and has tried several over the counter medications and nothing has helped it States that she came in to get medication to help with her migraine denies - Related Data Home Medications Medication Instructions Recorded Confirmed etonogestrel 68 mg subdermal SUBDERMAL each 05/03/18 05/23/18 implant Previous Rx's Medication Instructions Recorded fluoxetine 20 mg capsule 20 mg PO DAILY #30 cap 05/23/18 Allergies Allergy/AdvReac Type Severity Reaction Status Date / Time latex [LATEX] Allergy Unknown Verified 05/23/18 11:05 - Worker's Comp Is this a Worker's Comp case?: No [facility] History - Hepatitis A Screen Drug use history?: No High risk sexual behaviors?: No History of sexually transmitted infection?: No Currently employed?: No Childcare worker?: No Do you have indoor plumbing?: Yes Do you have electricity?: Yes Attestation statement:: This patient has been screened for Hepatitis A risk factors. I have reviewed the patient's past medical history: Yes Medical History: Reports:: Anxiety, Kidney Stones Denies:: Cancer, Diabetes Mellitus Type 1, Diabetes Mellitus Type 2, Hypertension, MRSA, Seizures Other Medical History: Reports: Other. Denies: Blood Transfusion Reaction Comment: Kidney ston
--- NOTE | 2018-06-09 18:30 | ED_ITS ---
[facility] [place] Disposition Clinical Impression: Migraine Qualifiers: Migraine type: unspecified Status migrainosus presence: without status migrainosus Intractability: intractable Qualified Code(s): G43.919 - Migraine, unspecified, intractable, without status migrainosus Disposition: Home, Self-Care Condition on Discharge: Good Instructions: Migraine -- Adult, Migraine -- Child Additional Instructions: Go home lay down and try to sleep off remainder of headache Return if needed Take prescribed medication for headache as directed by your physician Follow up with family doctor Straight to ER if any life threatening symptoms Referrals: Ga Adair MD [Primary Care Provider] - As needed Time of Disposition: 19:00 Medical Decision Making - Liborio Inquiry Pt receiving controlled substance: No Liborio was queried for this patient: No Vital Signs: 06/09/18 18:01 Temperature 97.9 F Temperature Source Oral Pulse Rate [Right Brachial] 63 Respiratory Rate 18 Blood Pressure [Right Arm] 111/58 L Blood Pressure Mean [Right Arm] 75 Blood Pressure Source [Right Arm] Automatic Cuff Blood Pressure Position [Right Arm] Sitting 02 Sat by Pulse Oximetry 98 Oxygen Delivery Method Room Air Orders (Tests/Meds): ED MEDICATIONS Discontinued Medications Generic Name Dose Route Start Last Admin Trade Name Freq PRN Reason Stop Dose Admin Diphenhydramine HCl 25 mg 06/09/18 18:31 06/09/18 18:41 Benadryl 50mg/1ml Vial IM 06/09/18 18:32 25 mg ONCE ONE Administration Ketorolac Tromethamine 60 mg 06/09/18 18:31 Toradol 60mg/2ml Vial IM 06/09/18 18:32 ONCE ONE Ketorolac Tromethamine 30 mg 06/09/18 18:34 06/09/18 18:41 Toradol 30mg/Ml Vial IM 06/09/18 18:35 30 mg ONCE ONE Administration Ondansetron HCl 4 mg 06/09/18 18:31 06/09/18 18:41 Zofran 4mg Odt SL 06/09/18 18:32 4 mg ONCE ONE Administration - Reevaluation(s) Time: 18:59 Reevaluation #1: States that headache is better after medication patient to be dc'd home [facility] [place] HPI - General Stated complaint: migraine Time Seen by Provider: 06/09/18 18:27 Mode of Arrival: Family Vehicle Source of Information: Patient Limitations: No Limitations Description of Symptoms (Recalled from Triage Doc. by RN): C/O MIGRAINE X 3 DAYS HEENT Symptoms (Recalled from RN notes): Yes Resp Symptoms (Recalled from RN notes): No Skin Symptoms (Recalled from RN notes): No MS Symptoms (Recalled from RN notes): No Functional Status (Recalled from RN notes): N/A - History of Present Illness Provider Complaint: Patient states that she has a history of migraine headaches State that she started having migraine about 3 days ago and has tried several over the counter medications and nothing has helped it States that she came in to get medication to help with her migraine denies - Related Data Home Medications Medication Instructions Recorded Confirmed etonogestrel 68 mg subdermal SUBDERMAL each 05/03/18 05/23/18 implant Previous Rx's Medication Instructions Recorded fluoxetine 20 mg capsule 20 mg PO DAILY #30 cap 05/23/18
[2018-06-09 19:02] VITALS: BP 111/58; PULSE 63; RESP 18; TEMP 36.6; O2SAT 98
== END 2018-06-09 19:04 | disposition home or self-care (01) ==
PROVIDERS: Emergency Provider Nurse Practitioner; PCP Family Medicine
DX: G43.919 Migraine, unspecified, intractable, without status migrainosus (principal); Z91.040 Latex allergy status; F17.210 Nicotine dependence, cigarettes, uncomplicated
CPT/HCPCS: 96372; 99201

== ENCOUNTER → 2018-07-17 14:46 | Outpatient (CLI) | payer MEDICAID, SELFPAY ==
--- NOTE | 2018-07-17 14:52 | XR_ITS ---
EXAM: XR lumbar spine min 4V HISTORY: ITS.REASON: RICARDO LOW BACK PAIN ORDERING PHYSICIAN: Rita Infante APRN PATIENT AGE: 27 years COMPARISON: None FINDINGS: Normal alignment. No fracture or dislocation. No lytic or blastic change. No significant degenerative change. The disc spaces are preserved. IMPRESSION: No acute finding
== END ==
PROVIDERS: PCP Nurse Practitioner; Visit Provider Nurse Practitioner
DX: M54.41 Lumbago with sciatica, right side (principal)
CPT/HCPCS: 72110

== ENCOUNTER → 2018-07-25 15:33 | Outpatient (CLI) | payer MEDICAID, SELFPAY ==
[2018-07-25 16:13] LABS: Amphetamine/Metha Screen,Urine Negative ng/mL (<1000); Barbiturates Screen,Urine Negative ng/mL (<200); Benzodiazepines Screen,Urine Positive ng/mL (<200); Cannabinoid Screen,Urine Negative ng/mL (<50); Cocaine Screen,Urine Negative ng/mL (<300); Methadone Screen,Urine Negative ng/mL (<300); Opiate Screen,Urine Negative ng/mL (<300); Phencyclidine Screen,Urine Negative ng/mL (<25)
== END ==
PROVIDERS: Visit Provider Nurse Practitioner Psychiatric/Mental Health
DX: Z02.83 Encounter for blood-alcohol and blood-drug test (principal)
CPT/HCPCS: 80305

== ENCOUNTER → 2018-12-05 13:24 | Outpatient (CLI) | payer OTHER, SELFPAY ==
--- NOTE | 2018-12-05 13:30 | US_ITS ---
PROCEDURE: US TRANSVAGINAL CLINICAL INDICATION: pelvic pain Pelvic pain and bleeding COMPARISON: OBTV US OB transvaginal from 07/09/2017 FINDINGS: The uterus is 7 x 3.4 x 4.3 cm with a combined endometrial thickness of 3 mm. No uterine mass evident. The left ovary is 2.8 x 2.2 cm and contains small follicles. The right ovary is 3.3 x 2.3 cm also containing small follicles. No cul-de-sac fluid evident. The volume of the right ovary is 8.7 mL and volume of the left ovary is 6 mL. IMPRESSION: Small bilateral ovarian follicles. No dominant cyst cul-de-sac fluid or other significant anomaly. Dictated by: Davey Early MD 12/05/2018 14:46 Electronically signed by Davey Early MD in [place] 12/05/2018 14:46
== END ==
PROVIDERS: PCP Family Medicine; Visit Provider Obstetrics & Gynecology
DX: N83.209 Unspecified ovarian cyst, unspecified side (principal)
CPT/HCPCS: 76830

== ENCOUNTER → 2018-12-17 10:39 | Outpatient (CLI) | payer OTHER, SELFPAY ==
[2018-12-17 10:42] LABS: Microscopic, Urine URINE MICROSCOPIC (MICROSCOPIC)
[2018-12-17 11:07] LABS: Eosinophils # 0.1 K/mm3 (0.0-0.4); Eosinophils % 1.6 % (0.1-12.0); Hemoglobin 13.6 g/dL (12.2-16.2); Lymphocytes # 1.3 K/mm3 (0.7-4.5); Mean Corpuscular HGB Conc 31.7 g/dL (31.8-35.4); Mean Corpuscular Hemoglobin 31.9 pg (27.0-31.2); Mean Corpuscular Volume 100.6 fl (81-99); Mean Platelet Volume 8.4 fl (7.4-10.4); Monocytes # 0.3 K/mm3 (0.1-1.0); Monocytes % 8.5 % (1.7-9.3); Neutrophils # 1.7 K/mm3 (1.8-7.8); Neutrophils % 50.9 % (37.0-80.0); Platelet Count 288 K/mm3 (142-424); Red Blood Count 4.27 M/mm3 (4.20-5.40); Red Cell Distribution Width 13.2 % (11.5-17.5); White Blood Count 3.3 K/mm3 (4.8-10.8)
[2018-12-17 11:30] LABS: Appearance,Urine CLEAR (Clear); Bilirubin,Urine Negative (Negative); Blood, Urine Negative (Negative); Color,Urine YELLOW (Yellow); Glucose,Urine (UA) Negative (Negative); Ketones,Urine Negative (Negative); Leukocyte Esterase,Urine Negative (Negative); Nitrate,Urine Negative (Negative); PH,Urine 6.5 (5.0-8.5); Protein,Urine Negative (Negative); Urobilinogen,Urine 0.2 EU/dl (0.2)
[2018-12-17 12:17] LABS: Amorphous Sediment,Urine 1+ /lpf; Bacteria,Urine 2+ /lpf; Mucus,Urine 1+ /lpf; RBC,Urine Occasional #/hpf (0-3)
[2018-12-17 12:48] LABS: Alanine Aminotransferase 13 U/L (12-78); Albumin Level 4.5 gm/dL (3.4-5.0); Albumin/Globulin Ratio 1.6 (1.1-1.8); Alkaline Phosphatase 66 U/L (46-116); Anion Gap 8.4 mEq/L (5-15); Aspartate Amino Transferase 11 U/L (15-37); Bilirubin,Total 0.4 mg/dL (0.2-1.0); Blood Urea Nitrogen 7 mg/dL (7-18); Calcium 8.8 mg/dL (8.5-10.1); Carbon Dioxide 27 mmol/L (21.0-32.0); Chloride 102 mmol/L (98-107); Creatinine,Serum 0.57 mg/dL (0.55-1.02); Estimated Glomerular Filt Rate 128 ml/min (>60); GFR (African American) 155 ML/MIN (>60); Globulin 2.8 gm/dl (1.3-3.2); Glucose 84 mg/dL (74-106); Potassium 3.4 mmoL/L (3.5-5.1); Sodium 134 mmol/L (136-145); Total Protein,Serum 7.3 gm/dL (6.4-8.2)
[2018-12-17 13:41] LABS: HCG Qualitative, Serum Negative (Negative)
== END ==
PROVIDERS: Visit Provider Obstetrics & Gynecology
DX: Z01.818 Encounter for other preprocedural examination (principal); R10.2 Pelvic and perineal pain
CPT/HCPCS: 36415; 80053; 81001; 84703; 85025; 87086

== ENCOUNTER → 2019-07-22 12:03 | Outpatient (CLI) | payer OTHER, SELFPAY ==
[2019-07-22 14:37] LABS: HCG,Quantitative 46 mIU/ml (0-5.42)
== END ==
PROVIDERS: Visit Provider Nurse Practitioner Obstetrics & Gynecology
DX: N92.6 Irregular menstruation, unspecified (principal)
CPT/HCPCS: 36415; 84702

== ENCOUNTER → 2019-07-24 11:50 | Outpatient (CLI) | payer OTHER, SELFPAY ==
[2019-07-24 13:41] LABS: HCG,Quantitative 130 mIU/ml (0-5.42)
== END ==
PROVIDERS: Visit Provider Nurse Practitioner Obstetrics & Gynecology
DX: Z32.00 Encounter for pregnancy test, result unknown (principal)
CPT/HCPCS: 36415; 84702

== ENCOUNTER → 2019-08-22 09:51 | Outpatient (CLI) | payer OTHER, SELFPAY ==
[2019-08-22 10:08] LABS: Basophils % 0.2 % (0.1-2.0); Eosinophils # 0.1 K/mm3 (0.0-0.4); Hematocrit 38.3 % (37.0-47.0); Hemoglobin 13.2 g/dL (12.2-16.2); Lymphocytes # 1.2 K/mm3 (0.7-4.5); Lymphocytes % 20.2 % (10-50); Mean Corpuscular HGB Conc 34.3 g/dL (31.8-35.4); Mean Corpuscular Hemoglobin 33.8 pg (27.0-31.2); Mean Corpuscular Volume 98.4 fl (81-99); Mean Platelet Volume 7.9 fl (7.4-10.4); Monocytes # 0.3 K/mm3 (0.1-1.0); Monocytes % 5.5 % (1.7-9.3); Neutrophils # 4.2 K/mm3 (1.8-7.8); Neutrophils % 73.1 % (37.0-80.0); Platelet Count 260 K/mm3 (142-424); Red Blood Count 3.89 M/mm3 (4.20-5.40); Red Cell Distribution Width 12.9 % (11.5-17.5); White Blood Count 5.7 K/mm3 (4.8-10.8)
[2019-08-23 11:24] LABS: HIV Screen 4th Generation wRfx Non Reactive (Non Reactive)
[2019-08-23 15:32] LABS: Hepatitis B Surface Antigen Negative (Negative); Hepatitis C Antibody <0.1 s/co ratio (0.0-0.9); Rapid Plasma Reagin Ab Titer Non Reactive (NonRea<1:1)
== END ==
PROVIDERS: Visit Provider Nurse Practitioner Obstetrics & Gynecology
DX: Z34.90 Encounter for supervision of normal pregnancy, unspecified, unspecified trimester (principal)
CPT/HCPCS: 36415; 85025; 86592; 86703; 86762; 86850; 87340; 87380; G0432

== ENCOUNTER → 2019-08-26 10:05 | Outpatient (CLI) | payer OTHER, SELFPAY ==
--- NOTE | 2019-08-26 10:16 | US_ITS ---
PROCEDURE: US OB TRANSVAGINAL CLINICAL INDICATION: for dates COMPARISON: No exams were available for comparison FINDINGS: An intrauterine gestational sac is present with a pole with a crown-rump length of 1.75cm correlating to gestational age of 8weeks 2days. heart tones are present with an FHR of 178bpm. Yolk sac is noted. IMPRESSION: Live IUP at 8 weeks 2 day Estimated due date by Ultrasound is 04/04/2020 Dictated by: Davey Early MD 08/26/2019 11:06 Electronically signed by Davey Early MD in [place] 08/26/2019 11:06
== END ==
PROVIDERS: PCP Family Medicine; Visit Provider Nurse Practitioner Obstetrics & Gynecology
DX: Z34.90 Encounter for supervision of normal pregnancy, unspecified, unspecified trimester (principal)
CPT/HCPCS: 76817

== ENCOUNTER 2019-09-10 20:19 | Emergency (ER) | payer OTHER, SELFPAY ==
--- NOTE | 2019-09-10 20:35 | HMH.EDUTC ---
[facility] [place] Clinical Impression: Exposure to COVID-19 virus Disposition: Home, Self-Care Condition on Discharge: Good Instructions: Preventing the Spread of Coronavirus Discharge Instructions Additional Instructions: You have been tested for COVID19. These results should be available tomorrow. Please isolate yourself as if you are positive until results received. Referrals: Ga Adair MD [Primary Care Provider] - Time of Disposition: 20:45 Medical Decision Making - Liborio Inquiry Pt receiving controlled substance: No [facility] [place] - General Stated complaint: Sore throat, congestion Time Seen by Provider: 09/10/19 20:35 - History of Present Illness Provider Complaint: COVID19 exposure a few days ago. Has had mild scratchy throat. Denies fever. Denies ear pain, congestion, cough, SOA, vomiting, diarrhea. No loss of taste or smell. Onset (ago): day(s) (3) Relieving factors: none Exacerbating factors: none Associated symptoms: denies other symptoms Treatments prior to arrival: none - Related Data Home Medications Medication Instructions Recorded Confirmed prenat.vits,jesenia,cqu-[id number] 1 tab PO DAILY 08/22/19 08/22/19 Allergies Allergy/AdvReac Type Severity Reaction Status Date / Time latex [LATEX] Allergy Unknown Verified 08/22/19 08:51 [facility] History - Hepatitis A Screen Attestation statement:: This patient has been screened for Hepatitis A risk factors. I have reviewed the patient's past medical history: Yes Medical History: Reports:: Anxiety, Diabetes Mellitus Type 1, Kidney Stones, MRSA, Seizures Denies:: Cancer, Diabetes Mellitus Type 2, Hypertension, Internal Pacemaker Other Medical History: Reports: Other. Denies: Blood Transfusion Reaction Comment: Kidney stones Other Surgeries: Yes: No Previous Surgery, Diagnostic Lap, Other. No: , Pacemaker Amputation: No Fractures: No Comment: 2018- D&E. 12/18/18---DX.LAP, Aspiration of right ovarian cyst., Fulguration of endometrial implants. 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 11 oz. 2017- . 03/12/2018 @ 1146---- , 7LB, 19.5 INCH, MALE. --8/9. NO COMPLICATIONS ROS Obtained: Yes All systems reviewed & no additional complaints - Constitutional Constitutional: Denies body ache, Denies chills, Denies fatigue, Denies fever(s), Denies lethargy, Denies malaise - Eyes Eyes: Denies eye discharge - ENT Ears, Nose, Mouth, and Throat: Denies otalgia, Denies nasal discharge, Reports sore throat - Respiratory Respiratory: No cough, No dyspnea - Gastrointestinal Gastrointestingal: Denies: loose stools, vomiting - Musculoskeletal Musculoskeletal: Denies joint pain Physical Exam - General General appearance: alert, in no apparent distress - Head Head exam: atraumatic, normocephalic - Eye Eye exam: Present: PERRL - ENT ENT exam: Present: normal oropharynx, TM's normal bilaterally - Neck Neck exam: Absent: lymphadenopathy - Chest Chest inspection: Present: normal inspection, symmetric chest wall rise - Respiratory Respiratory exam: Present: normal lung sounds bilaterally - Cardiovascular Cardiovascular exam: Present: regular rate, normal rhythm - Neurological Exam Neurological exam: Present: alert, oriented X3 - Psychiatric Psychiatric exam: Present: normal affect, normal mood - Skin Skin exam: Present: warm, dry, intact
--- NOTE | 2019-09-10 20:53 | HMH.EDUTC ---
[facility] [place] Clinical Impression: Sinusitis Qualifiers: Sinusitis location: maxillary Chronicity: acute Recurrence: non-recurrent Qualified Code(s): J01.00 - Acute maxillary sinusitis, unspecified Qualifiers: Weeks of gestation: 10 weeks Qualified Code(s): Z3A.10 - 10 weeks gestation of Disposition: Home, Self-Care Condition on Discharge: Good Instructions: DI for Sinusitis Prescriptions: Amoxicillin [Amoxicillin 875MG Tab] 875 mg PO Q12H 10 Days #20 tab Transmission Status: Pending to [facility] Referrals: Ga Adair MD [Primary Care Provider] - Time of Disposition: 21:16 Medical Decision Making - Liborio Inquiry Pt receiving controlled substance: No - Lab Data Lab results reviewed: Yes: I reviewed the patient's lab results. [facility] [place] - General Stated complaint: Sore throat, congestion Time Seen by Provider: 09/10/19 20:35 - History of Present Illness Provider Complaint: Sore throat, congestion X 2 days. No fever. Mild headache. Has nausea but is 10 weeks . No vomiting or diarrhea. Has been exposed to strep throat. No known exposure to COVID19. Onset (ago): day(s) (3) Location: mouth Relieving factors: none Exacerbating factors: none Associated symptoms: denies other symptoms Treatments prior to arrival: none - Related Data Home Medications Medication Instructions Recorded Confirmed prenat.vits,jesenia,[id number] 1 tab PO DAILY 08/22/19 08/22/19 Previous Rx's Medication Instructions Recorded Amoxicillin [Amoxicillin 875MG 875 mg PO Q12H 10 Days #20 tab 09/10/19 Tab] Allergies Allergy/AdvReac Type Severity Reaction Status Date / Time latex [LATEX] Allergy Unknown Verified 08/22/19 08:51 [facility] History - Hepatitis A Screen Attestation statement:: This patient has been screened for Hepatitis A risk factors. I have reviewed the patient's past medical history: Yes Medical History: Reports:: Anxiety, Diabetes Mellitus Type 1, Kidney Stones, MRSA, Seizures Denies:: Cancer, Diabetes Mellitus Type 2, Hypertension, Internal Pacemaker Other Medical History: Reports: Other. Denies: Blood Transfusion Reaction Comment: Kidney stones Other Surgeries: Yes: No Previous Surgery, Diagnostic Lap, Other. No: , Pacemaker Amputation: No Fractures: No Comment: 2018- D&E. 12/18/18---DX.LAP, Aspiration of right ovarian cyst., Fulguration of endometrial implants. 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 11 oz. 2018- SAB. 03/12/2018 @ 1146---- , 7LB, 19.5 INCH, MALE. --8/9. NO COMPLICATIONS ROS Obtained: Yes All systems reviewed & no additional complaints - Constitutional Constitutional: Denies body ache, Denies chills, Denies fatigue, Denies fever(s), Denies lethargy, Denies malaise - Eyes Eyes: Denies eye discharge - ENT Ears, Nose, Mouth, and Throat: Denies otalgia, Reports sinus pain, Reports sore throat - Respiratory Respiratory: No cough, No dyspnea - Gastrointestinal Gastrointestingal: Reports: nausea. Denies: loose stools, vomiting Physical Exam - General General appearance: alert, in no apparent distress - Head Head exam: atraumatic, normocephalic - Eye Eye exam: Present: PERRL - ENT ENT exam: Present: TM's normal bilaterally - Expanded ENT Exam Nose exam: Present: sinus tenderness Throat exam: Present: other (PND) - Respiratory Respiratory exam: Present: normal lung sounds bilaterally, respiratory distress - Cardiovascular Cardiovascular exam: Pr
[2019-09-10 21:09] VITALS: BP 97/66; PULSE 75; RESP 20; TEMP 36.9; O2SAT 98; BMI 19.2
[2019-09-10 21:23] VITALS: BP 00/00; PULSE 75; RESP 20; TEMP 36.9; O2SAT 98
[2019-09-10 21:47] LABS: UTC Strep Screen (Rapid) Negative (Negative)
== END 2019-09-10 21:25 | disposition home or self-care (01) ==
PROVIDERS: Emergency Provider Physician Assistant; PCP Family Medicine
DX: J01.00 Acute maxillary sinusitis, unspecified (principal); Z3A.10 10 weeks gestation of pregnancy; F17.210 Nicotine dependence, cigarettes, uncomplicated; Z91.040 Latex allergy status
CPT/HCPCS: 87880; 99201

== ENCOUNTER → 2019-09-24 16:15 | Outpatient (CLI) | payer OTHER, SELFPAY | PROVIDERS: Visit Provider Nurse Practitioner Obstetrics & Gynecology | DX: Z34.90 Encounter for supervision of normal pregnancy, unspecified, unspecified trimester (principal); R39.89 Other symptoms and signs involving the genitourinary system | CPT/HCPCS: 87086; 87088; 87186 ==

== ENCOUNTER 2019-11-10 09:26 | Emergency (ER) | payer OTHER, SELFPAY ==
[2019-11-10 09:40] VITALS: BP 107/67; PULSE 89; RESP 20; TEMP 36.6; O2SAT 98; BMI 21.1
--- NOTE | 2019-11-10 09:49 | HMH.EDUTC ---
[facility] [place] Clinical Impression: Sinusitis Qualifiers: Sinusitis location: unspecified location Chronicity: unspecified Qualified Code(s): J32.9 - Chronic sinusitis, unspecified Disposition: Home, Self-Care Condition on Discharge: Good Instructions: Sinusitis, Sinus Headache Additional Instructions: *Monitor Temp, Over the counter Motrin or Tylenol as directed/as needed Tylenol every 4 hours and Motrin every 6 hours (as long as your family doctor has told you that you can take it) for fever or pain. and straight to ER if unable to lower temp less than 101.0 after medication given *Warm salt water gargles may help to soothe the throat *Throat Lozenges *Warm fluids like tea with honey may help to soothe the throat *Sleep elevated *Humidifier/Vaporizer *Flonase 2 sprays in each nostril daily but be aware that it may take 2-3 days before you notice improvement Take medication as prescribed Follow up IMMEDIATELY for new or worsening symptoms or no Noticeable improvement over the next 48-72 hours. 911 for difficulty breathing or swallowing You was tested for today for COVID19 your test result should be back later this evening, you may call back later this evening to see if your test results are back and the result You was given a handout with instructions for Self Quarantine and Self isolation for while you wait on test results and what to do if they are positive Prescriptions: Amoxicillin/Potassium Clav [Augmentin 875-125 Tablet] 1 tab PO Q12H 7 Days #14 tab Transmission Status: Pending to [facility] Referrals: Ga Adair MD [Primary Care Provider] - As needed Forms: Work/School Release Time of Disposition: 10:21 Medical Decision Making - Liborio Inquiry Pt receiving controlled substance: No Liborio was queried for this patient: No Vital Signs: 11/10/19 09:40 Temperature 97.8 F Temperature Source Oral Pulse Rate [Radial] 89 Respiratory Rate 20 Blood Pressure [Right Arm] 107/67 L Blood Pressure Mean [Right Arm] 80 Blood Pressure Source [Right Arm] Automatic Cuff Blood Pressure Position [Right Arm] Sitting 02 Sat by Pulse Oximetry 98 Oxygen Delivery Method Room Air - Lab Data Lab results reviewed: Yes: I reviewed the patient's lab results. Orders (Tests/Meds): ORDERS Category Date Time Status Covid-19 Nasal PCR ([facility]) Routine Lab 11/10/19 09:20 Received Medical Decision Narrative: Discussed with Pharmacy and Augmentin baby safe [facility] [place] - General Stated complaint: runny nose sore throat Time Seen by Provider: 11/10/19 09:49 Mode of Arrival: Ambulatory Source of Information: Patient Limitations: No Limitations Description of Symptoms (Recalled from Triage Doc. by RN): cough, sore throat, SOB HEENT Symptoms (Recalled from RN notes): Yes Resp Symptoms (Recalled from RN notes): No Skin Symptoms (Recalled from RN notes): No MS Symptoms (Recalled from RN notes): No Functional Status (Recalled from RN notes): wnl - History of Present Illness Provider Complaint: Patient states that she was exposed to someone who tested positive last week for COVID and she is States that she has been having sinus pain and pressure over the last week that has continued to get worse and blowing out thick yellowish green mucous and not sure if she may have COVID or sinus infection so she wanted to get checked - Related Data Home Medications Medication Instructions Recorded Confirmed prenat.vits,jesenia,[id number] 1 tab PO DAILY 08/22/19 10/15/19 Previous Rx's Medication Instructions Recorded promethazine 12.5 mg tablet 12.5 mg PO Q6H PRN #30 tab 09/13/19 cephalexin 500 mg capsule 500 mg PO BID 7 Days #14 cap 09/24/19 phenazopyridine 200 mg tablet 200 mg PO TID 5 Days #15 tab 09/27/19 Amoxicillin/Potassium Clav 1 tab PO Q12H 7 Days #14 tab 11/10/19 [Augmentin 875-125 Tablet] Allergies Allergy/AdvReac Type Severity Reaction Status Date / Time latex [LATEX] Allergy Unkn
[2019-11-10 10:26] VITALS: BP 107/67; PULSE 89; RESP 20; TEMP 36.6; O2SAT 98
[2019-11-10 11:09] LABS: UTC Strep Screen (Rapid) Negative (Negative)
== END 2019-11-10 10:27 | disposition home or self-care (01) ==
PROVIDERS: Emergency Provider Nurse Practitioner; PCP Family Medicine
DX: J32.9 Chronic sinusitis, unspecified (principal); Z20.828 Contact with and (suspected) exposure to other viral communicable diseases; Z34.90 Encounter for supervision of normal pregnancy, unspecified, unspecified trimester; Z87.442 Personal history of urinary calculi; F17.210 Nicotine dependence, cigarettes, uncomplicated
CPT/HCPCS: 87880; 99202; U0003

== ENCOUNTER → 2019-11-19 13:21 | Outpatient (CLI) | payer OTHER, SELFPAY ==
--- NOTE | 2019-11-19 13:22 | US_ITS ---
PROCEDURE: US OB /MATERNAL DETAIL CLINICAL INDICATION: 20 week gestation of Anatomy scan COMPARISON: US US OB TRANSVAGINAL from 08/26/2019 FINDINGS: There is a single live fetus in breech presentation. heart body motion noted. The cervix is closed and measures 3 cm. The placenta is posterior in implantation and grade 1. Complete survey performed and was unremarkable on the submitted images as in PACS. No discrete anomalies identified on survey imaging by technologist. Active fetus. Three-vessel cord with satisfactory umbilical cord insertion. 4- chamber heart noted. Survey of brain & ventricles Unremarkable. Face and neck survey unremarkable. Diaphragm and chest views unremarkable. Abdomen: Both kidneys noted and unremarkable. Stomach noted and satisfactory. Spine: Survey of the spine satisfactory with no anomalies identified nor imaged. Both arms and legs noted. Amniotic Fluid: Adequate. Maternal adnexa: No significant findings. Measurements: Average ultrasound age 20weeks 3days. Gestational Age 20weeks 3days Estimated due date by ultrasound age 0204/04/2020. Estimated weight 356g BPD = 20weeks 5days OFD = 20weeks 4days HC = 19weeks 6days AC = 20weeks 5days FL = 20weeks 3days Growth Percentile= 48Percent% Heart Rate = 134bpm Cerebellum = 20weeks 4days Humerus = 21weeks 3days HC/AC is 1.11 CI is 0.8 FL/BPD is 0.69 FL/AC is 0.21 IMPRESSION: Live IUP at 20 weeks 3 days gestation in breech presentation. All parameters correlate with no obvious anomalies. Please see above for detail. Dictated by: Davey Early MD 11/20/2019 09:32 Davey Early MD in [place] 11/20/2019 09:32
== END ==
PROVIDERS: PCP Family Medicine; Visit Provider Nurse Practitioner Obstetrics & Gynecology
DX: Z34.90 Encounter for supervision of normal pregnancy, unspecified, unspecified trimester (principal); Z3A.20 20 weeks gestation of pregnancy
CPT/HCPCS: 76811

== ENCOUNTER 2019-12-16 09:11 | Emergency (ER) | payer OTHER, SELFPAY ==
[2019-12-16 09:25] VITALS: BP 102/53; PULSE 70; RESP 20; TEMP 36.8; O2SAT 98; BMI 20.9
--- NOTE | 2019-12-16 09:51 | HMH.EDUTC ---
[facility] [place] Disposition Clinical Impression: Encounter for laboratory testing for COVID-19 virus Disposition: Home, Self-Care Condition on Discharge: Good Instructions: Preventing the Spread of Coronavirus Discharge Instructions Additional Instructions: *Monitor Temp, Over the counter Motrin or Tylenol as directed/as needed Tylenol every 4 hours and Motrin every 6 hours (as long as your family doctor has told you that you can take it) for fever or pain. and straight to ER if unable to lower temp less than 101.0 after medication given *Warm salt water gargles may help to soothe the throat *Throat Lozenges *Warm fluids like tea with honey may help to soothe the throat *Sleep elevated *Humidifier/Vaporizer Follow up IMMEDIATELY for new or worsening symptoms or no Noticeable improvement over the next 48-72 hours. 911 for difficulty breathing or swallowing You was tested for today for COVID19 your test result should be back later this evening, you may call back later this evening to see if your test results are back and the result [phone] You was given a handout with instructions for Self Quarantine and Self isolation for while you wait on test results and what to do if they are positive Referrals: Ga Adair MD [Primary Care Provider] - As needed Forms: Work/School Release Time of Disposition: 09:57 Medical Decision Making - Liborio Inquiry Pt receiving controlled substance: No Liborio was queried for this patient: No Vital Signs: 12/16/19 09:25 Temperature 98.3 F Temperature Source Oral Pulse Rate [Right Brachial] 70 Respiratory Rate 20 Blood Pressure [Right Arm] 102/53 L Blood Pressure Mean [Right Arm] 69 Blood Pressure Source [Right Arm] Automatic Cuff Blood Pressure Position [Right Arm] Sitting 02 Sat by Pulse Oximetry 98 Oxygen Delivery Method Room Air [facility] [place] HPI - General Stated complaint: covid test Time Seen by Provider: 12/16/19 09:52 Mode of Arrival: Ambulatory Source of Information: Patient Limitations: No Limitations Description of Symptoms (Recalled from Triage Doc. by RN): PATIENT REQUESTING COVID TEST D/T EXPOSURE ON MONDAY; DENIES SYMPTOMS HEENT Symptoms (Recalled from RN notes): No Resp Symptoms (Recalled from RN notes): No Skin Symptoms (Recalled from RN notes): No MS Symptoms (Recalled from RN notes): No Functional Status (Recalled from RN notes): WNL - History of Present Illness Provider Complaint: Patient states that she is and over the weekend she was exposed to someone who tested positive for COVID and she wanted to get tested Denies any symptoms at this time - Related Data Home Medications Medication Instructions Recorded Confirmed prenat.vits,jesenia,ihq-opxo-vqdag 1 tab PO DAILY 08/22/19 12/16/19 Ferrous Sulfate 325 mg PO DAILY 12/16/19 12/16/19 Allergies Allergy/AdvReac Type Severity Reaction Status Date / Time latex [LATEX] Allergy Unknown Verified 12/12/19 09:26 - Worker's Comp Is this a Worker's Comp case?: No [facility] History - Hepatitis A Screen Drug use history?: No High risk sexual behaviors?: No History of sexually transmitted infection?: No Currently employed?: No Childcare worker?: No Do you have indoor plumbing?: Yes Do you have electricity?: Yes Attestation statement:: This patient has been screened for Hepatitis A risk factors. I have reviewed the patient's past medical history: Yes Medical History: Reports:: Anxiety, Diabetes Mellitus Type 1, Kidney Stones, MRSA, Seizures Denies:: Cancer, Diabetes Mellitus Type 2, Hypertension, Internal Pacemaker Other Medical History: Reports: Other. Denies: Blood Transfusion Reaction Comment: Kidney stones Other Surgeries: Yes: No Previous Surgery, Diagnostic Lap, Other. No: , Pacemaker Amputation: No Fractures: No Comment: 2018- D&E. 12/18/18---DX.LAP, Aspiration of right ovarian cyst., Fulguration of endometrial implants. - Social History Smoking Status: Current every day smo
[2019-12-16 10:03] VITALS: BP 102/53; PULSE 70; RESP 20; TEMP 36.8; O2SAT 98
== END 2019-12-16 10:05 | disposition home or self-care (01) ==
PROVIDERS: Emergency Provider Nurse Practitioner; PCP Family Medicine
DX: Z20.828 Contact with and (suspected) exposure to other viral communicable diseases (principal); Z34.90 Encounter for supervision of normal pregnancy, unspecified, unspecified trimester; F41.9 Anxiety disorder, unspecified; E10.9 Type 1 diabetes mellitus without complications; Z87.442 Personal history of urinary calculi; F17.210 Nicotine dependence, cigarettes, uncomplicated
CPT/HCPCS: 99201; U0003

== ENCOUNTER → 2020-01-06 09:44 | Outpatient (CLI) | payer OTHER, SELFPAY ==
[2020-01-06 10:25] LABS: Glucose,Fasting 90 mg/dl (74-100)
[2020-01-06 12:02] LABS: Glucose 1 Hour 87 mg/dL (74-100)
== END ==
PROVIDERS: Visit Provider Nurse Practitioner Obstetrics & Gynecology
DX: Z34.90 Encounter for supervision of normal pregnancy, unspecified, unspecified trimester (principal)
CPT/HCPCS: 36415; 82951

== ENCOUNTER 2020-01-08 12:02 | Outpatient (CLI) | payer OTHER, SELFPAY ==
[2020-01-08 12:20] VITALS: BP 102/57; PULSE 98; RESP 20; TEMP 36.7; O2SAT 100; BMI 22.1
[2020-01-08 12:49] VITALS: BMI 22.1
[2020-01-08 12:57] LABS: Appearance,Urine CLOUDY (Clear); Bilirubin,Urine Negative (Negative); Blood, Urine TRACE-I (Negative); Color,Urine YELLOW (Yellow); Glucose,Urine (UA) Negative (Negative); Ketones,Urine Negative (Negative); Leukocyte Esterase,Urine TRACE (Negative); Microscopic, Urine URINE MICROSCOPIC (MICROSCOPIC); Nitrate,Urine Negative (Negative); Protein,Urine Negative (Negative)
[2020-01-08 13:09] LABS: Benzodiazepines Screen,Urine Negative ng/ml (<200)
[2020-01-08 13:10] LABS: Amphetamine/Metha Screen,Urine Negative ng/ml (<1000)
[2020-01-08 13:11] LABS: Barbiturates Screen,Urine Negative ng/ml (<200); Cannabinoid Screen,Urine Negative ng/ml (<50)
[2020-01-08 13:12] LABS: Cocaine Screen,Urine Negative ng/ml (<300)
[2020-01-08 13:13] LABS: Methadone Screen,Urine Negative ng/ml (<300); Opiate Screen,Urine Negative ng/ml (<300)
[2020-01-08 13:14] LABS: Phencyclidine Screen,Urine Negative ng/ml (<25)
[2020-01-08 13:26] LABS: Fetal Fibronectin (Rapid) Negative (Negative)
--- NOTE | 2020-01-08 13:48 | US_ITS ---
PROCEDURE: US OB BIOPHYSICAL PROFILE CLINICAL INDICATION: LOW ABD PAIN TECHNIQUE: FINDINGS: There is a single live fetus present which is in cephalic presentation. heart and body motion is noted. The placenta is posterior in implantation and grade 1. The cervix is closed and measures 3 cm. Biophysical profile is 8 of 8. No measurements of the fetus were obtained. Heart rate is 152 BPM. The SHAILESH is 12 cm. IMPRESSION: SHAILESH is 12 cm. Biophysical profile 8 of 8 Dictated by: Davey Early MD 01/09/2020 08:17 Davey Early MD in [place] 01/09/2020 08:17
== END 2020-01-08 15:10 | disposition home or self-care (01) ==
LOC: OBOUT 12:02 → OB 12:04
PROVIDERS: PCP Family Medicine; Visit Provider Nurse Practitioner Obstetrics & Gynecology
DX: O26.892 Other specified pregnancy related conditions, second trimester (principal); Z3A.27 27 weeks gestation of pregnancy; R10.30 Lower abdominal pain, unspecified
CPT/HCPCS: 59025; 76819; 80305; 81001; 82731; 96372; G0463

== ENCOUNTER → 2020-01-09 14:04 | Outpatient (CLI) | payer OTHER, SELFPAY ==
[2020-01-09 14:05] LABS: Microscopic, Urine URINE MICROSCOPIC (MICROSCOPIC)
[2020-01-09 15:09] LABS: Appearance,Urine CLEAR (Clear); Bilirubin,Urine Negative (Negative); Blood, Urine TRACE-I (Negative); Color,Urine YELLOW (Yellow); Glucose,Urine (UA) Negative (Negative); Ketones,Urine Negative (Negative); Leukocyte Esterase,Urine Negative (Negative); Nitrate,Urine Negative (Negative); Protein,Urine Negative (Negative); Urobilinogen,Urine 0.2 EU/dl (0.2)
[2020-01-09 15:22] LABS: Amorphous Sediment,Urine 1+ /lpf; Squamous Epithelial Cell,Urine Occasional #/hpf (0-5)
== END ==
PROVIDERS: Visit Provider Nurse Practitioner Obstetrics & Gynecology
DX: Z34.90 Encounter for supervision of normal pregnancy, unspecified, unspecified trimester (principal)
CPT/HCPCS: 81001

== ENCOUNTER → 2020-02-19 12:49 | Outpatient (CLI) | payer OTHER, SELFPAY ==
--- NOTE | 2020-02-19 12:49 | US_ITS ---
PROCEDURE: US OB FOLLOW UP CLINICAL INDICATION: sga Small for gestational age COMPARISON: US US OB BIOPHYSICAL PROFILE from 01/08/2020 FINDINGS: There is a single live fetus which is in cephalic presentation. Placenta is fundal and posterior and grade 1. Cervix is closed measuring 4 cm. heart and body motion is noted. Average ultrasound age is 33 weeks 4 days with an estimated weight of 2186 g which is 37th percentile. BPD 34 weeks 0 days OFD 33 weeks 0 days HC 33 weeks 4 days AC 33 weeks 5 days FL 32 weeks 6 days. All parameters correlate. SHAILESH is normal at 10 cm. Biophysical profile is 8 of 8. IMPRESSION: Live IUP at 33 weeks 4 days as detailed above. Dictated by: Davey Early MD 02/21/2020 05:24 Davey Early MD in [place] 02/21/2020 05:24
== END ==
PROVIDERS: PCP Family Medicine; Visit Provider Nurse Practitioner Obstetrics & Gynecology
DX: O36.5990 Maternal care for other known or suspected poor fetal growth, unspecified trimester, not applicable or unspecified (principal)
CPT/HCPCS: 76816; 76819

== ENCOUNTER → 2020-03-02 17:06 | Outpatient (CLI) | payer OTHER, SELFPAY | PROVIDERS: Visit Provider Nurse Practitioner Obstetrics & Gynecology | DX: Z34.90 Encounter for supervision of normal pregnancy, unspecified, unspecified trimester (principal) | CPT/HCPCS: 86403 ==

== ENCOUNTER → 2020-03-29 09:50 | Outpatient (CLI) | payer OTHER, SELFPAY ==
--- NOTE | 2020-03-29 20:29 | PC.NURSE ---
DR. FRIAS NOTIFIED AT THIS TIME OF POSITIVE COVID-19 RESULTS. CONTINUE WITH AUGMENT OF LABOR TOMORROW 03/30/2020 PLANNED
== END ==
PROVIDERS: PCP Family Medicine; Visit Provider Nurse Practitioner Obstetrics & Gynecology
DX: Z34.90 Encounter for supervision of normal pregnancy, unspecified, unspecified trimester (principal); U07.1 COVID-19
CPT/HCPCS: U0003

== ENCOUNTER 2020-03-30 05:00 | Inpatient (IN) | payer OTHER, SELFPAY ==
[2020-03-30 05:14] VITALS: BMI 24.9
[2020-03-30 05:55] VITALS: BP 108/65; PULSE 73; RESP 16; TEMP 36.8; O2SAT 100; BMI 24.9
[2020-03-30 05:55] LABS: Basophils % 0.1 % (0.1-2.0); Eosinophils # 0.1 K/mm3 (0.0-0.4); Eosinophils % 0.8 % (0.1-12.0); Hemoglobin 12.4 g/dL (12.2-16.2); Lymphocytes # 1.8 K/mm3 (0.7-4.5); Mean Corpuscular HGB Conc 33.4 g/dL (31.8-35.4); Mean Corpuscular Hemoglobin 33.2 pg (27.0-31.2); Mean Corpuscular Volume 99.5 fl (81-99); Mean Platelet Volume 9.1 fl (7.4-10.4); Monocytes # 0.6 K/mm3 (0.1-1.0); Monocytes % 5.4 % (1.7-9.3); Neutrophils # 8.9 K/mm3 (1.8-7.8); Neutrophils % 77.7 % (37.0-80.0); Platelet Count 202 K/mm3 (142-424); Red Blood Count 3.72 M/mm3 (4.20-5.40); Red Cell Distribution Width 13.4 % (11.5-17.5); White Blood Count 11.5 K/mm3 (4.8-10.8)
[2020-03-30 05:59] LABS: Microscopic, Urine URINE MICROSCOPIC (MICROSCOPIC)
[2020-03-30 06:41] LABS: Benzodiazepines Screen,Urine Negative ng/ml (<200)
[2020-03-30 06:42] LABS: Amphetamine/Metha Screen,Urine Negative ng/ml (<1000)
[2020-03-30 06:43] LABS: Barbiturates Screen,Urine Negative ng/ml (<200); Cannabinoid Screen,Urine Negative ng/ml (<50)
[2020-03-30 06:44] LABS: Cocaine Screen,Urine Negative ng/ml (<300)
[2020-03-30 06:45] LABS: Methadone Screen,Urine Negative ng/ml (<300); Opiate Screen,Urine Negative ng/ml (<300)
[2020-03-30 06:46] LABS: Phencyclidine Screen,Urine Negative ng/ml (<25)
[2020-03-30 07:38] LABS: Appearance,Urine CLEAR (Clear); Bilirubin,Urine Negative (Negative); Blood, Urine Negative (Negative); Color,Urine YELLOW (Yellow); Glucose,Urine (UA) Negative (Negative); Ketones,Urine Negative (Negative); Leukocyte Esterase,Urine 1+ (Negative); Nitrate,Urine Negative (Negative); PH,Urine 6.5 (5.0-8.5); Protein,Urine Negative (Negative); Specific Gravity, Urine 1.025 (1.005-1.030); Urobilinogen,Urine 0.2 EU/dl (0.2)
[2020-03-30 07:48] LABS: RBC,Urine Occasional #/hpf (0-3)
[2020-03-30 08:38] VITALS: BP 116/72; PULSE 75; RESP 18; TEMP 36.6; O2SAT 100
--- NOTE | 2020-03-30 09:24 | HMH.LABNOT ---
Labor Note - Subjective: Date: 03/30/20 Time: 09:24 regular contraction - Objective: NST:: Reactive Contractions:: every 2-3 minutes Cervical Dilation:: 4-5 Effacement:: 90% Station: -1 Membranes: artificially ruptured - Fetus: Monitoring?: Yes monitoring type:: External - Assessment: Labor progressing?: Yes Cephalopelvic disproportion?: No Patient Problems: All Active Problems Encounter for laboratory testing for COVID-19 virus (Acute) (Acute) Pelvic pain (Acute) URI (upper respiratory infection) (Acute) Hand sprain (Acute) Myofascial pain (Acute) Lumbar radiculopathy (Acute) Vomiting (Acute) Left otitis externa (Acute) Right flank pain (Acute) Nephrolithiasis (Acute) Tuberculin skin test encounter (Acute) Abdominal pain (Acute) Viral upper respiratory illness (Acute) Negative test (Acute) Headache (Acute) Migraine (Acute) Migraine (Acute) Positive test (Acute) Sinusitis (Acute) - Plan: Anesthesia for epidural?: Yes Continue to labor down?: Yes Plan for ?: No Continue to monitor?: Yes Start pushing?: No
[2020-03-30 11:04] LABS: Cord Blood PH 7.32 (7.35-7.45)
--- NOTE | 2020-03-30 12:06 | P.PCN_ITS ---
- Delivery Note Delivery Date:: 03/30/20 Delivery Time:: 10:45 Anesthesia Type: Epidural Was labor medically induced?: Yes Induction method: per pitocin protocol Gestational age (weeks): 39 delivered prior to 39 weeks?: No Gender: Female at 1 minute: 8 at 5 minutes: 9 LAC or MLE?: LAC Delivery Procedure:: She is a 29-year-old 3 para 2 who is 39+ weeks gestational age. She was seen in my office and was found to be 4 cm dilated. As result of that we elected to induce her labor. She was started on IV oxytocin and had her membranes ruptured. Under labor epidural progressed to full dilation and delivered spontaneously a liveborn f emale child at 10:45 AM on the morning of March 30, 2020. On deliver the head there was a loose nuchal cord which was easily reduced. This was followed by the anterior shoulder and the rest the 's body atraumatically. We allowed the cord to continue to pulsate for approximately 1 minute. The baby was vigorous. We then doubly clamped and cut the cord and the infant was placed on the mother's abdomen for further care. The nurses assigned Apgars of 8 at 1 minute and 9 at 5 minutes. We then obtained cord blood as well as cord pH. She received IV oxytocin and using gentle traction on the cord and countertraction on the fundus I was able to easily deliver the placenta intact. Had a normal three-vessel cord. She had a small right labial laceration that was repaired with a single interrupted 3-0 Vicryl Rapide suture. Her estimated blood loss was approximately 200 cc. Laceration:: vaginal Placental Delivery Description: Spontaneous
--- NOTE | 2020-03-30 12:10 | HMH.OBAPHP ---
OB - H&P: HPI Antepartum - History of Present Illness Chief complaint: Occasional contractions, term History of present illness: She is a 29-year-old 3 para 2 at 39+ weeks gestational age. She was found to be 4 cm dilated my office last week and as result of that we elected to induce her labor at term. She was also found to be Covid positive on admission. - History of Present Criteria for establishing EDC:: LMP confirmed by 1st trimester US care: good care Ultrasounds: normal 1st trimester US, normal mid trimester US Obstetrical complications: none - Labs Blood type: A (+) positive Rubella: immune RPR/VDRL: nonreactive GBS status: negative HBsAG: negative [facility] History I have reviewed the patient's past medical history: Yes Medical History: Reports:: Anxiety, Diabetes Mellitus Type 1, Kidney Stones, MRSA, Seizures Denies:: Cancer, Diabetes Mellitus Type 2, Hypertension, Internal Pacemaker *Have you ever received a pneumonia vaccine?: No *Have you received a flu vaccine this season?: No Other Medical History: Reports: Other. Denies: Blood Transfusion Reaction Other Surgeries: Yes: No Previous Surgery, Diagnostic Lap, Other. 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 Review of Systems - Review of Systems Review of systems:: pertinent systems reviewed and negative unless documented below Meds Home Medications Medication Instructions Recorded Confirmed Type prenat.vits,jesenia,axu-gkaf-pjhyz 1 tab PO DAILY 08/22/19 03/30/20 History Ferrous Sulfate 325 mg PO DAILY 12/16/19 03/30/20 History acetaminophen 300 mg-codeine 30 mg 1 tab PO BID PRN #20 tab 03/26/20 03/30/20 Rx tablet Allergies Allergy/AdvReac Type Severity Reaction Status Date / Time latex [LATEX] Allergy Unknown Verified 03/25/20 10:09 OB - H&P: Exam - Physical Exam Vital signs: Temp Pulse Resp BP Pulse Ox 97.9 F 75 18 116/72 100 03/30/20 08:38 03/30/20 08:38 03/30/20 08:38 03/30/20 08:38 03/30/20 08:38 - Constitutional no acute distress - Routine HEENT Exam Head: Present: normocephalic Eye: Present: EOMI, PERRL ENT: Present: mucous membranes moist - Routine Neck Exam Present: supple, full ROM - Routine Respiratory Exam Absent: accessory muscle use (good air entry bilaterally), respiratory distress, wheezes, crackles - Routine Cardiovascular Exam Present: RRR. Absent: murmur - Routine Abdominal Exam Present: soft, normoactive bowel sounds. Absent: tenderness, distended, guarding - Routine Rectal Exam Patient deferred: visual exam, digital exam - Routine Exam Patient deferred: external exam, groin exam, perineal exam - Routine Extremities Exam Present: full ROM. Absent: cyanosis, edema - Routine Skin Exam Present: intact. Absent: cyanosis - Routine Neurological Exam Present: alert, oriented X3 - Routine Psychiatric Exam Present: normal affect OB - Results - Labs Labs: Short CBC 03/30/20 Range/Units 05:30 WBC 11.5 H (4.8-10.8) K/mm3 Hgb 12.4 (12.2-16.2) g/dL Hct 37.0 (37.0-47.0) % Plt Count 202 (142-424) K/mm3 Urine 03/30/20 Range/Units 05:30 Urine Color Yellow (Yellow) Urine Appearance Clear (Clear) Urine pH 6.5 (5.0-8.5) Ur Specific [place] 1.025 (1.005-1.030) Urine Protein Negative (Negative) Urine Glucose (UA) Negative (Negative) OB - A/P Antepartum (1) Normal de
[2020-03-30 12:32] VITALS: BP 98/55; PULSE 65; RESP 16; TEMP 36.7
[2020-03-30 17:08] VITALS: BP 104/61; PULSE 60; RESP 18; TEMP 36.7; O2SAT 98
[2020-03-30 20:06] VITALS: BP 101/60; PULSE 56; RESP 18; TEMP 36.8; O2SAT 98
[2020-03-31 04:29] VITALS: BP 114/63; PULSE 53; RESP 16; TEMP 36.6; O2SAT 100
[2020-03-31 05:33] LABS: Hematocrit 34.8 % (37.0-47.0); Hemoglobin 11.5 g/dL (12.2-16.2)
--- NOTE | 2020-03-31 08:05 | HMH.ACPN2 ---
Internal Medicine - PN: Subj *Date: 03/31/20 *Time: 08:05 Interval history: She is doing very well this morning. She is eating and drinking and ambulating. She is bottlefeeding. Her lochia is normal. Exam Vital signs and Labs for Last 24 Hours: Temp Pulse Resp BP Pulse Ox 97.8 F 53 L 16 114/63 100 03/31/20 04:29 03/31/20 04:29 03/31/20 04:29 03/31/20 04:29 03/31/20 04:29 Laboratory Results - last 24 hr 03/30/20 05:30: Blood Type A Positive, Antibody Screen Negative 03/30/20 11:02: Cord ABG pH 7.32 L 03/31/20 05:20: Hgb 11.5 L, Hct 34.8 L I & O for Last 24 hours: Intake & Output 03/28/20 03/29/20 03/30/20 03/31/20 11:59 11:59 11:59 11:59 Weight 145 lb Microbiology Reports for the Last 24 Hours: Microbiology 03/30/20 05:30 Urine,Clean Catch Urine Culture - Preliminary NO GROWTH AFTER 24 HOURS - Constitutional no acute distress - *Routine HEENT Exam Head: Present: normocephalic Eye: Present: EOMI, PERRL ENT: Present: mucous membranes moist Assessment and Plan (1) Normal delivery Status: Acute Category: Medical Code(s): O80 - Encounter for full-term uncomplicated delivery (2) Lab test positive for detection of COVID-19 virus Status: Acute Category: Medical Code(s): U07.1 - COVID-19 - Assessment and plan all Dx Assessment and Plan for all problems:: She is doing well this morning. We will plan to send her home tomorrow.
[2020-03-31 08:46] VITALS: BP 102/53; PULSE 56; RESP 16; TEMP 36.6; O2SAT 97
[2020-03-31 12:10] VITALS: BP 113/63; PULSE 57; RESP 16; TEMP 36.9; O2SAT 97
[2020-03-31 16:53] VITALS: BP 115/73; PULSE 65; RESP 18; TEMP 36.7; O2SAT 98
[2020-03-31 20:12] VITALS: BP 118/52; PULSE 64; RESP 16; TEMP 36.9; O2SAT 98
[2020-04-01 04:15] VITALS: BP 117/61; PULSE 65; RESP 17; TEMP 36.5; O2SAT 99
[2020-04-01 08:34] VITALS: BP 114/65; PULSE 68; RESP 16; TEMP 36.7; O2SAT 97
--- NOTE | 2020-04-01 09:17 | P.DS_ITS ---
General - General Admission date:: 03/30/20 Discharge date: 04/01/20 HPI - History of Present Illness History of present illness: She is a 29-year-old 4 now para 3 aborta 1 who was 39 and 2 weeks gestational age. She was having pressure and discomfort so we elected to deliver her at term. Hospital Course Hospital Course: She was started on IV oxytocin and had her membranes ruptured. Under labor epidural she progressed to full dilation and delivered spontaneously a liveborn female child on the morning of March 30, 2020. The baby weighed 7 pounds 0 ounces and was 18-1/2 inches long. She had Apgars of 8 at 1 minute and 9 at 5 minutes. She has done well and has remained afebrile throughout her hospitalization. She is eating and drinking and ambulating. She is bottlefeeding. Her lochia is normal. She has a positive blood, she is rubella immune and was group B streptococcus negative. She is discharged home to follow-up with me in approximately 2 weeks time. She will continue with her vitamins and iron. She was given the usual instructions with respect to limiting her activity, driving and sexual activity. Rhogam Administration: Not Indicated Objective Vital signs: Temp Pulse Resp BP Pulse Ox 98.1 F 68 16 114/65 97 04/01/20 08:34 04/01/20 08:34 04/01/20 08:34 04/01/20 08:34 04/01/20 08:34 no acute distress - *Routine HEENT Exam Head: Present: normocephalic Eye: Present: EOMI, PERRL ENT: Present: mucous membranes moist DS: Diagnosis - Discharge Diagnosis (1) Normal delivery Status: Acute (2) Lab test positive for detection of COVID-19 virus Status: Acute Discharge Plan - Patient Discharge Instructions ACTIVITY: No heavy lifting DIET: continue same diet Additional Instructions: No heavy lifting/strenuous activity. Nothing in the vagina for 6 weeks. Follow up with MD as scheduled. Patient Instructions: Depression, Hemorrhage, DI for Labor and Delivery, Vaginal , DI for Pre-eclampsia, [facility] Post Discharge Instructions, Preventing the Spread of Coronavirus Discharge Instructions - Follow up Plan Follow up with: Jimmy Medel MD [Staff Physician] - 04/15/20 3:15 pm Disposition: Home, Self-Senior Care Medications: Home Medications Medication Instructions Recorded Confirmed Type prenat.vits,jesenia,ydk-sszp-gehos 1 tab PO DAILY 08/22/19 03/30/20 History Ferrous Sulfate 325 mg PO DAILY 12/16/19 03/30/20 History acetaminophen 300 mg-codeine 30 mg 1 tab PO BID PRN #20 tab 03/26/20 03/30/20 Rx tablet Prescriptions/Medication Reconciliation: Continued prenat.vits,jesenia,sfd-zsqd-pwumu 1 tab PO DAILY acetaminophen 300 mg-codeine 30 mg tablet 1 tab PO BID PRN #20 tab PRN Reason: pain Ferrous Sulfate 325 mg PO DAILY - Problem Reconciliation Problems Reviewed?: Yes
== END 2020-04-01 10:05 | disposition home or self-care (01) | DRG 805 ==
PROVIDERS: Admitting Provider Nurse Practitioner Obstetrics & Gynecology; PCP Family Medicine; Visit Provider Nurse Practitioner Obstetrics & Gynecology
DX: O69.81X0 Labor and delivery complicated by cord around neck, without compression, not applicable or unspecified (principal); U07.1 COVID-19; Z37.0 Single live birth; O98.513 Other viral diseases complicating pregnancy, third trimester; Z3A.39 39 weeks gestation of pregnancy; O70.0 First degree perineal laceration during delivery
CPT/HCPCS: 59409; 59025; 80305; 81001; 82800; 85014; 85018; 85025; 86850; 87086; 94761; G0283; U0003

== ENCOUNTER → 2020-05-14 14:33 | Outpatient (CLI) | payer OTHER, SELFPAY ==
[2020-05-14 15:30] LABS: Basophils % 0.5 % (0.1-2.0); Eosinophils # 0.1 K/mm3 (0.0-0.4); Eosinophils % 2.1 % (0.1-12.0); Hemoglobin 14.9 g/dL (12.2-16.2); Lymphocytes # 2.2 K/mm3 (0.7-4.5); Lymphocytes % 37.7 % (10-50); Mean Corpuscular HGB Conc 33.2 g/dL (31.8-35.4); Mean Corpuscular Hemoglobin 32.7 pg (27.0-31.2); Mean Corpuscular Volume 98.5 fl (81-99); Mean Platelet Volume 7.9 fl (7.4-10.4); Monocytes # 0.4 K/mm3 (0.1-1.0); Monocytes % 7.5 % (1.7-9.3); Neutrophils % 52.2 % (37.0-80.0); Platelet Count 276 K/mm3 (142-424); Red Blood Count 4.57 M/mm3 (4.20-5.40); Red Cell Distribution Width 12.4 % (11.5-17.5); White Blood Count 5.7 K/mm3 (4.8-10.8)
[2020-05-14 15:54] LABS: Chloride 106 mmol/L (98-107); HCG Qualitative, Serum Negative (Negative); Sodium 141 mmol/L (136-145)
[2020-05-14 15:57] LABS: Blood Urea Nitrogen 13 mg/dl (7-17); Carbon Dioxide 26 mmol/L (22.0-30.0); Estimated Glomerular Filt Rate 120 ml/min (>60); GFR (African American) 145 ML/MIN (>60)
[2020-05-14 15:58] LABS: Calcium 9.8 mg/dl (8.4-10.2); Glucose 97 mg/dl (74-100)
[2020-05-14 16:31] LABS: Coronavirus 19 IgG Antibody Negative (Negative); Coronavirus 19 IgM Antibody Negative (Negative)
== END ==
PROVIDERS: Visit Provider Nurse Practitioner Obstetrics & Gynecology
DX: Z01.818 Encounter for other preprocedural examination (principal); Z20.822 Contact with and (suspected) exposure to COVID-19; Z30.09 Encounter for other general counseling and advice on contraception
CPT/HCPCS: 36415; 80048; 84703; 85025; 86328

== ENCOUNTER 2020-05-15 08:10 | Day surgery (SDC) | payer OTHER, SELFPAY ==
[2020-05-12 14:46] VITALS: BMI 21.2
[2020-05-15] VITALS (14 sets, daily range): BP systolic 106–129; BP diastolic 53–80; PULSE 53–78; RESP 16–20; TEMP 36.3–43; O2SAT 95–99
--- NOTE | 2020-05-15 09:09 | HMH.ANESCL ---
[facility] Anesthesia Checklist - Patient Identification Patient Identification: Arm Band - Structural Data Admitted From: Home Planned Operative Procedure/s: laparoscopic bilateral salpingectomy Consent for Planned Operative Procedure(s) Verified: Yes Verified Documents: Surgical Consent, History and Physical - NPO Status Verified Time NPO: 00:00 - Additional verifications Anesthesia Reactions: No Hx Blood Transfusions: No Blood Transfusion Reaction: No - Airway Assessment C-Spine Mobility Assessed: Yes (mp2) TMJ Mobility Assessed: Yes Dentition: Good Dentition - Neurological Assessment Level of Consciousness: Awake, Alert - Anesthesia Plan Anesthesia Risk discussed: Yes Anesthesia Plan: Verified ASA Class: II Anesthesia Type: General [facility] History I have reviewed the patient's past medical history: Yes Medical History: Reports:: Anxiety, Kidney Stones, Seizures Denies:: Cancer, Diabetes Mellitus Type 1, Diabetes Mellitus Type 2, Hypertension, Internal Pacemaker, MRSA *Have you ever received a pneumonia vaccine?: No *Have you received a flu vaccine this season?: No Other Medical History: Reports: Other. Denies: Blood Transfusion Reaction Anesthesia experience/problems:: nac Other Surgeries: Yes: Diagnostic Lap, Other. 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
--- NOTE | 2020-05-15 10:29 | P.OP_ITS ---
Date of procedure: 05/15/20 Pre-op Diagnosis:: Desire for sterilization Post-op Diagnosis:: Desire for sterilization Procedure performed:: Laparoscopic bilateral salpingectomy Surgeon:: Jimmy Medel MD EMERGENCY DEPARTMENT PHYSICIAN:: Other (fifi calhoun) Anesthesia: GETA Estimated blood loss (mL): 25 Clinical Note:: She is a 29-year-old lady who expressed desire for sterilization. The risks and benefits as well as irreversibility of bilateral salpingectomy were discussed with the patient prior to surgery. Operative findings:: She had a normal-appearing anteverted bulky uterus. The ovaries and tubes appeared normal. The rest the pelvis appeared normal. The upper abdomen appeared normal. Operative note:: She was taken to the operating room where general anesthesia was found be adequate. She was prepped and draped in normal sterile fashion in the semilithotomy position. A weighted speculum was placed in the vagina and the anterior lip of the cervix was grasped with a tenaculum. I then inserted a Syeda uterine manipulator into the cervical os. The balloon was then insufflated. I changed gloves and injected 10 cc of 0.5% ropivacaine around her umbilicus and made a small incision within the umbilicus. I inserted a Veress needle into the abdominal cavity. The peritoneal cavity was then insufflated with carbon dioxide gas to a pressure of 20 mmHg. I then inserted a 5 millimeter trocar under direct vision. I injected through and through the pubic hairline, made a small incision here and inserted an 8 mm trocar under direct vision. I identified the inferior epigastric artery on the left side, went lateral to these and injected through and through. I then placed a 5 mm trocar here under direct vision. The pelvis and upper abdomen were then inspected and the findings were as previously dictated. I grasped the right tube at the cornua and using harmonic scalpel on coagulation mode I cut through the tube. I then grasped the distal tube and using harmonic scalpel cut along the mesosalpinx. The tube was removed through 8 mm trocar site. This was similarly performed on the patient's left side. I then injected 30 cc of 0.5% ropivacaine into the pelvis. After assuring hemostasis the gas was let out of the abdomen and hemostasis was once again assured. The abdomen was then reinsufflated. There was a small amount of bleeding on the fundus of the uterus where one of the instruments had touched and scratch the uterus. I cauterized this area but elected to place a piece of Surgicel over this as well. The secondary trochars were removed under direct vision. The gas was let out her abdomen. The primary trocar was then removed. The 8 mm trocar site was closed deeply with 2-0 Vicryl suture followed by subcuticular 4-0 Monocryl suture. The 5 mm trocar sites were closed with subcuticular 4-0 Monocryl. Sterile dressings were applied. The patient tolerated the procedure well and was taken to the recovery room in excellent condition. All sponge instrument and needle counts were correct. The estimated blood loss was less than 25 cc. Condition: stable Disposition: PACU Specimens:: Bilateral fallopian tubes Complications:: None
--- NOTE | 2020-05-15 10:34 | HMH.ANESI ---
[facility] Anesthesia Record Part I Intake, IV Amount: 900 Estimated blood loss (mL): 25 Urine output (mL): 0 Blood Pressure: 129/71 SaO2: 95 Pulse Rate: 78 Respiratory Rate: 16 Temperature: 97.8 F Patient is:: Awake Stable to PACU at:: 10:31
--- NOTE | 2020-05-16 10:39 | P.PN_ITS ---
[facility] Anesthesia Record Part II Discharge Time: 11:19 Destination: Surgical Day Care (OP Surgery) PACU nurse assessment reviewed?: Yes Patient Condition:: Good Anesthesia Complications:: None Swallowing reflex intact?: Yes Cyanosis?: No Blood Pressure: 106/73 Pulse Rate: 63 Temperature: 98 F Mental Status: Alert & Oriented Pain level:: 4 Nausea and/or vomitting:: None Intake, IV Amount: 0
[2020-05-16 10:40] VITALS: BP 106/73; PULSE 63; TEMP 36.6
== END 2020-05-15 12:31 | disposition home or self-care (01) ==
PROVIDERS: PCP Family Medicine; Visit Provider Nurse Practitioner Obstetrics & Gynecology
PROC: (CPT 58661; principal; 2020-05-15 09:45)
DX: Z30.2 Encounter for sterilization (principal); F41.9 Anxiety disorder, unspecified; Z87.442 Personal history of urinary calculi; R56.9 Unspecified convulsions; Z91.040 Latex allergy status; Z79.899 Other long term (current) drug therapy
CPT/HCPCS: 58661; 96374; J2405

== ENCOUNTER → 2020-12-22 12:55 | Outpatient (CLI) | payer OTHER, SELFPAY ==
--- NOTE | 2020-12-22 12:55 | US_ITS ---
PROCEDURE: US TRANSVAGINAL CLINICAL INDICATION: pelvic pain COMPARISON: No exams were available for comparison FINDINGS: UTERUS: 8cm x 5cmx 4cm with a combined endometrial thickness of 4mm LEFT OVARY: [id number] with a volume of 5.7ml. RIGHT OVARY: [id number] with a volume of 11.2ml. There are small bilateral ovarian follicles greater on the left compared to the right. No cul-de-sac fluid. IMPRESSION: Negative pelvic ultrasound Dictated by: Davey Early MD 12/23/2020 09:50 Davey Early MD in [place] 12/23/2020 09:50
== END ==
PROVIDERS: PCP Family Medicine; Visit Provider Nurse Practitioner Obstetrics & Gynecology
DX: R10.2 Pelvic and perineal pain (principal)
CPT/HCPCS: 76830

== ENCOUNTER → 2021-01-01 10:33 | Outpatient (CLI) | payer OTHER, SELFPAY ==
[2021-01-01 11:44] LABS: Basophils % 0.5 % (0.1-2.0); Eosinophils # 0.1 K/mm3 (0.0-0.4); Eosinophils % 1.4 % (0.1-12.0); Hemoglobin 14.6 g/dL (12.2-16.2); Lymphocytes # 1.5 K/mm3 (0.7-4.5); Lymphocytes % 31.6 % (10-50); Mean Corpuscular HGB Conc 34.8 g/dL (31.8-35.4); Mean Corpuscular Volume 94.7 fl (81-99); Mean Platelet Volume 8.4 fl (7.4-10.4); Monocytes # 0.3 K/mm3 (0.1-1.0); Monocytes % 6.8 % (1.7-9.3); Neutrophils # 2.9 K/mm3 (1.8-7.8); Neutrophils % 59.7 % (37.0-80.0); Platelet Count 310 K/mm3 (142-424); Red Blood Count 4.43 M/mm3 (4.20-5.40); Red Cell Distribution Width 13.2 % (11.5-17.5); White Blood Count 4.8 K/mm3 (4.8-10.8)
[2021-01-01 12:06] LABS: Chloride 104 mmol/L (98-107); Sodium 141 mmol/L (136-145)
[2021-01-01 12:09] LABS: Blood Urea Nitrogen 16 mg/dl (7-17); Estimated Glomerular Filt Rate 147 ml/min (>60); GFR (African American) 178 ML/MIN (>60)
[2021-01-01 12:10] LABS: Calcium 9.4 mg/dl (8.4-10.2); Carbon Dioxide 27 mmol/L (22.0-30.0); Glucose 97 mg/dl (74-100)
[2021-01-01 12:27] LABS: Triiodothryronine (T3) Uptake 33 % (23.5-40.5)
[2021-01-01 12:28] LABS: Free Thyroxine Index 2.4 ug/dL (5.93-13.13); T4 (Thyroxine) 7.3 ug/dl (5.53-11.0)
[2021-01-01 12:47] LABS: HCG Qualitative, Serum Negative (Negative)
== END ==
PROVIDERS: Visit Provider Nurse Practitioner Obstetrics & Gynecology
DX: Z01.818 Encounter for other preprocedural examination (principal); Z11.52 Encounter for screening for COVID-19; N92.0 Excessive and frequent menstruation with regular cycle
CPT/HCPCS: 36415; 80048; 84436; 84443; 84479; 84703; 85025; C9803; U0003; U0005

== ENCOUNTER 2021-01-04 06:01 | Day surgery (SDC) | payer OTHER, SELFPAY ==
[2020-12-25 12:36] VITALS: BMI 19.9
[2021-01-04] VITALS (10 sets, daily range): BP systolic 98–123; BP diastolic 56–74; PULSE 54–74; RESP 14–18; TEMP 36.3–37; O2SAT 94–98
--- NOTE | 2021-01-04 06:57 | P.PN_ITS ---
[facility] Anesthesia Checklist - Patient Identification Patient Identification: Arm Band - Structural Data Admitted From: Home Planned Operative Procedure/s: Hyst/D & C Consent for Planned Operative Procedure(s) Verified: Yes - NPO Status Verified Time NPO: 00:00 - Additional verifications Anesthesia Reactions: No Hx Blood Transfusions: No Blood Transfusion Reaction: No - Airway Assessment C-Spine Mobility Assessed: Yes TMJ Mobility Assessed: Yes Dentition: Good Dentition - Neurological Assessment Level of Consciousness: Awake Hx Seizures: No Numbness or tingling in extremities: No - Anesthesia Plan Anesthesia Risk discussed: Yes Anesthesia Plan: Verified ASA Class: I Anesthesia Type: General [facility] History I have reviewed the patient's past medical history: Yes Medical History: Reports:: Anxiety, Kidney Stones Denies:: Cancer, Diabetes Mellitus Type 1, Diabetes Mellitus Type 2, Hypertension, Internal Pacemaker, MRSA *Have you ever received a pneumonia vaccine?: No *Have you received a flu vaccine this season?: No Other Medical History: Reports: Other. Denies: Blood Transfusion Reaction Anesthesia experience/problems:: None Other Surgeries: Yes: No Previous Surgery, Diagnostic Lap, Tubal Ligation (Bilateral Salpingectomy), Other. No: , Pacemaker Amputation: No Fractures: No - *Social History Last grade of school completed: High school graduate Smoking Status: Current every day smoker Tobacco Type: cigarettes # Packs/Day (cigarettes): 1 Alcohol Intake: current Alcohol Intake Frequency:: holidays/special occasions only Substance Use Type: denies use *Occupational Status:: unemployed Housing: house Household Members: children *Travel in the last 8 weeks: None - Psychiatric History Pschychiatric History:: Reports:: Anxiety Family Hx:: No significant family history BODY BUMPER history: Spontaneous
--- NOTE | 2021-01-04 08:02 | P.OP_ITS ---
Date of procedure: 01/04/21 Pre-op Diagnosis:: Menorrhagia Post-op Diagnosis:: Menorrhagia Procedure performed:: Hysteroscopy, dilation and curettage, NovaSure ablation Surgeon:: Jimmy Medel MD CLOTH TESTER QUALITY:: Larry Rosenthal Anesthesia: LMA Estimated blood loss (mL): 100 Clinical Note:: She is a 30-year-old lady who has had extremely heavy periods. We did an endometrial biopsy in the office that was negative for hyperplasia. 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 After having discussed the risk and benefits we elected to go ahead with a hysteroscopy, D&C and NovaSure ablation. Operative findings:: She had an anteverted uterus that sounded to 9 cm. The endometrial length was 6.5 cm and the width was 4.5 cm. The endometrium was thin and somewhat erythematous possibly consistent with endometritis. There was good descensus of the cervix to the introitus. Operative note:: She was taken to the operating room where LMA anesthesia was found be adequate. She was prepped and draped in the normal sterile fashion in the lithotomy position. A weighted speculum was placed in the vagina and the anterior lip of the cervix was grasped with a tenaculum. The cervix was then dilated to approximately 6 mm. I then inserted a hysteroscope into the uterine cavity and the findings were as previously dictated. I then performed a gentle curettage with a medium curette. I then sounded the uterus and determine the length of the uterus. I then inser misty the NovaSure device and determine the width of the endometrial cavity. The endometrial cavity was found to be 6.5 cm long and 4.5 cm wide. This was placed into the NovaSure device. I then ran the device through its program. I further inspected the endometrial cavity and was found to be completely charred. I then injected 30 cc of 0.5% ropivacaine at the 3:00, 5:00, 7:00, and 9:00 positions of the cervix. She tolerated procedure well and was taken to the recovery room in excellent condition. All sponge and instrument counts were correct. The estimated blood loss was less than 100 cc. Condition: stable Disposition: PACU Specimens:: Endometrial curettings Complications:: None
--- NOTE | 2021-01-04 08:07 | P.PN_ITS ---
[facility] Anesthesia Record Part I Intake, IV Amount: 500 Estimated blood loss (mL): 100 Urine output (mL): 0 Blood Pressure: 123/73 SaO2: 95 Pulse Rate: 67 Respiratory Rate: 17 Temperature: 98.5 F Patient is:: Drowsy Stable to PACU at:: 08:05
--- NOTE | 2021-01-05 07:22 | P.PN_ITS ---
[facility] Anesthesia Record Part II Discharge Time: 08:35 Destination: Surgical Day Care (OP Surgery) PACU nurse assessment reviewed?: Yes Patient Condition:: Good Anesthesia Complications:: None Swallowing reflex intact?: Yes Cyanosis?: No Blood Pressure: 104/70 Pulse Rate: 58 Temperature: 97.5 F Mental Status: Alert & Oriented Pain level:: 2 Nausea and/or vomitting:: None Intake, IV Amount: 0
[2021-01-05 07:23] VITALS: BP 104/70; PULSE 58; TEMP 36.4
== END 2021-01-04 09:00 | disposition home or self-care (01) ==
LOC: OR 06:03
PROVIDERS: PCP Family Medicine; Visit Provider Nurse Practitioner Obstetrics & Gynecology
PROC: 0U5B8ZZ Destruction of Endometrium, Via Natural or Artificial Opening Endoscopic (ICD-10-PCS; CPT 58563; principal; 2021-01-04 07:30)
DX: N92.0 Excessive and frequent menstruation with regular cycle (principal); N85.4 Malposition of uterus; F41.9 Anxiety disorder, unspecified; Z87.442 Personal history of urinary calculi; Z72.0 Tobacco use; Z79.899 Other long term (current) drug therapy; Z91.040 Latex allergy status
CPT/HCPCS: 58563; 96374; J2405

== ENCOUNTER 2021-02-25 20:17 | Emergency (ER) | payer OTHER, SELFPAY ==
[2021-02-25 20:44] VITALS: BP 100/63; PULSE 71; RESP 18; TEMP 36.6; O2SAT 99; BMI 19.7
[2021-02-25 20:58] VITALS: BP 100/63; PULSE 71; RESP 18; TEMP 36.6
[2021-02-25 21:18] LABS: Strep Scrn Group A (Rapid) Negative (Negative)
--- NOTE | 2021-02-25 21:31 | HMH.EDUTC ---
[facility] [place] Clinical Impression: Exposure to COVID-19 virus, Viral syndrome Pharyngitis Qualifiers: Pharyngitis/tonsillitis etiology: unspecified etiology Qualified Code(s): J02.9 - Acute pharyngitis, unspecified Disposition: Home, Self-Care Condition on Discharge: Good Instructions: Preventing the Spread of Coronavirus Discharge Instructions, DI for COVID-19 (Suspected or Confirmed ), DI for Strep Throat Additional Instructions: Drink plenty of fluids. Take tylenol or ibuprofen for pain or fever. Take the medications as directed. Follow up with your regular doctor. GO TO THE ER FOR ANY WORSENING SYMPTOMS Quarantine until you know the results of your covid-19 test. Notify your school or workplace of your results and follow their instructions regarding return to work/school. Prescriptions: Brompheniramine/Pseudoephed/Dm [Bromfed Dm Cough Syrup] 5 ml PO Q6HP PRN #240 ml PRN Reason: Cough Transmission Status: Pending to [facility] methylPREDNISolone [Medrol] 4 mg PO DIRECTED 6 Days #21 packet Transmission Status: Pending to [facility] Azithromycin [Z-Flip 250mg Tab*] 250 mg PO UD DOSE PK #6 tab Transmission Status: Pending to [facility] Referrals: Ga Adair MD [Primary Care Provider] - Time of Disposition: 21:55 Medical Decision Making - Medical Records Medical records reviewed: No: I reviewed the patient's medical records. - Liborio Inquiry Pt receiving controlled substance: No Vital Signs: 02/25/21 20:44 02/25/21 20:58 Temperature 98 F 98 F Temperature Source Oral Pulse Rate 71 Pulse Rate [Left] 71 Respiratory Rate 18 18 Blood Pressure 100/63 L Blood Pressure [Right Arm] 100/63 L Blood Pressure Mean [Right Arm] 75 02 Sat by Pulse Oximetry 99 - Lab Data Lab results reviewed: Yes: I reviewed the patient's lab results. Lab Results 02/25/21 20:40: Group A Strep Rapid Negative Orders (Tests/Meds): ORDERS Category Date Time Status Covid-19 Nasal PCR ([facility]) Routine Lab 02/25/21 20:40 Received Strep Screen Confirmation Stat Micro 02/25/21 20:40 [facility] H[facility] - General Stated complaint: covid test/treated for symptoms Time Seen by Provider: 02/25/21 21:31 Mode of Arrival: Ambulatory Source of Information: Patient Description of Symptoms (Recalled from Triage Doc. by RN): PT C/O A CRAMER, CONGESTION, COUGH, SORE THROAT AND BODY ACHES. HEENT Symptoms (Recalled from RN notes): Yes (SORE THROAT, CRAMER AND CONGESTION) Resp Symptoms (Recalled from RN notes): Yes (COUGH) Skin Symptoms (Recalled from RN notes): No MS Symptoms (Recalled from RN notes): No Functional Status (Recalled from RN notes): WNL - History of Present Illness Provider Complaint: She states that for the past 2 days she has had chest congestion, sinus congestion, low grade fever and chills. She has been exposed to covid-19 and strep throat. - Related Data Home Medications Medication Instructions Recorded Confirmed hydrOXYzine pamoate [Vistaril] 25 mg PO TIDP PRN 12/25/20 01/14/21 Previous Rx's Medication Instructions Recorded Oxycodone HCl/Acetaminophen 1 tab PO Q4-6H PRN #12 tab 01/04/21 [Percocet 5/325mg tablet] aripiprazole 2 mg tablet 2 mg PO HS #30 tab 01/14/21 fluoxetine 40 mg capsule 40 mg PO DAILY #30 cap 01/14/21 Azithromycin [Z-Flip 250mg Tab*] 250 mg PO UD DOSE PK #6 tab 02/25/21 Brompheniramine/Pseudoephed/Dm 5 ml PO Q6HP PRN #240 ml 02/25/21 [Bromfed Dm Cough Syrup] methylPREDNISolone [Medrol] 4 mg PO DIRECTED 6 Days #21 02/25/21 packet Allergies Allergy/AdvReac Type Severity Reaction Status Date / Time latex [LATEX] Allergy Unknown Verified 01/14/21 10:01 - Worker's Comp Is this a Worker's Comp case?: No H History - Hepatitis A Screen Drug use history?: No High risk sexual behaviors?: No History of sexually transmitted infection?: No Currently employed?: No Childcare worker?: No Do you have
== END 2021-02-25 22:09 | disposition home or self-care (01) ==
PROVIDERS: Emergency Provider Nurse Practitioner Family; PCP Family Medicine
DX: Z20.822 Contact with and (suspected) exposure to COVID-19 (principal); B34.9 Viral infection, unspecified; F17.210 Nicotine dependence, cigarettes, uncomplicated
CPT/HCPCS: 87430; 99203; C9803; G0463; U0003; U0005

== ENCOUNTER → 2021-06-07 09:17 | Outpatient (CLI) | payer OTHER, SELFPAY ==
[2021-06-07 09:55] LABS: Basophils # 0.1 K/mm3 (0-0.2); Basophils % 1.9 % (0.1-2.0); Eosinophils # 0.2 K/mm3 (0.0-0.4); Eosinophils % 2.7 % (0.1-12.0); Hematocrit 40.2 % (37.0-47.0); Hemoglobin 13.4 g/dL (12.2-16.2); Lymphocytes # 1.4 K/mm3 (0.7-4.5); Lymphocytes % 25.6 % (10-50); Mean Corpuscular HGB Conc 33.3 g/dL (31.8-35.4); Mean Corpuscular Hemoglobin 33.3 pg (27.0-31.2); Mean Platelet Volume 8.3 fl (7.4-10.4); Monocytes # 0.4 K/mm3 (0.1-1.0); Monocytes % 7.3 % (1.7-9.3); Neutrophils # 3.4 K/mm3 (1.8-7.8); Neutrophils % 62.5 % (37.0-80.0); Platelet Count 295 K/mm3 (142-424); Red Blood Count 4.02 M/mm3 (4.20-5.40); Red Cell Distribution Width 12.7 % (11.5-17.5); White Blood Count 5.5 K/mm3 (4.8-10.8)
[2021-06-07 10:37] LABS: HCG Qualitative, Serum Negative (Negative)
[2021-06-07 10:39] LABS: Anion Gap 12.7 mEq/L (5-15); Blood Urea Nitrogen 12 mg/dl (7-17); Carbon Dioxide 25 mmol/L (22.0-30.0); Chloride 108 mmol/L (98-107); Estimated Glomerular Filt Rate 147 ml/min (>60); GFR (African American) 178 ML/MIN (>60); Glucose 94 mg/dl (74-100); Potassium 3.7 mmoL/L (3.5-5.1); Sodium 142 mmol/L (136-145)
== END ==
PROVIDERS: Visit Provider Nurse Practitioner Obstetrics & Gynecology
DX: Z01.818 Encounter for other preprocedural examination (principal); Z11.52 Encounter for screening for COVID-19
CPT/HCPCS: 36415; 80048; 84703; 85025; C9803; U0003; U0005

== ENCOUNTER 2021-06-09 09:14 | Observation (INO) | payer OTHER, SELFPAY ==
[2021-06-07 10:07] VITALS: BMI 20.7
[2021-06-09] VITALS (21 sets, daily range): BP systolic 90–136; BP diastolic 42–77; PULSE 58–122; RESP 16–25; TEMP 36.4–36.7; O2SAT 96–100
[2021-06-09 06:40] LABS: Coronavirus 19, PCR Not Detected (NotDetected); Influenza A, PCR Not Detected (NotDetected); Influenza B, PCR Not Detected (NotDetected)
--- NOTE | 2021-06-09 07:00 | P.PN_ITS ---
[facility] Anesthesia Checklist - Patient Identification Patient Identification: Arm Band - Structural Data Admitted From: Home Planned Operative Procedure/s: H Consent for Planned Operative Procedure(s) Verified: Yes - NPO Status Verified Time NPO: 00:00 - Additional verifications Anesthesia Reactions: No Hx Blood Transfusions: No Blood Transfusion Reaction: No - Airway Assessment C-Spine Mobility Assessed: Yes TMJ Mobility Assessed: Yes Dentition: Good Dentition - Neurological Assessment Level of Consciousness: Awake Hx Seizures: No Numbness or tingling in extremities: No - Anesthesia Plan Anesthesia Risk discussed: Yes Anesthesia Plan: Verified ASA Class: I Anesthesia Type: General [facility] History I have reviewed the patient's past medical history: Yes Medical History: Reports:: Anxiety, Kidney Stones Denies:: Cancer, Diabetes Mellitus Type 1, Diabetes Mellitus Type 2, Hypertension, Internal Pacemaker, MRSA, Seizures *Have you ever received a pneumonia vaccine?: No *Have you received a flu vaccine this season?: No Other Medical History: Reports: Other. Denies: Blood Transfusion Reaction Anesthesia experience/problems:: None Other Surgeries: Yes: No Previous Surgery, Diagnostic Lap, Tubal Ligation (Bilateral Salpingectomy), Other. 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
--- NOTE | 2021-06-09 08:31 | HMH.OPNOTE ---
Date of procedure: 06/09/21 Pre-op Diagnosis:: Dyspareunia, dysmenorrhea, uterovaginal prolapse, enterocele, possible adenomyosis Post-op Diagnosis:: Dyspareunia, dysmenorrhea, uterovaginal prolapse, enterocele, possible adenomyosis Procedure performed:: Vaginal hysterectomy with enterocele repair Surgeon:: Jimmy Medel MD TRANSPORTATION ENGINEER:: Larry Rosenthal Anesthesia: GETA Estimated blood loss (mL): 100 Clinical Note:: She is a 30-year-old lady who has had a previous bilateral salpingectomy and endometrial ablation. She continues to have periods with irregular bleeding. She has excruciating pain in the uterus. When I examined her in the office her uterus was exquisitely tender. She does not have any new partners. She is not of any STDs. She had descensus of the uterus almost to the introitus. After having discussed the risk and benefits we elected to perform a vaginal hysterectomy and enterocele repair. Operative findings:: She had a normal-appearing uterus that had descensus to the introitus. There was an enterocele. Her ovaries appeared normal. The tubes had previously been removed. Operative note:: She was taken the operating room where general anesthesia was found to be adequate. She is prepped draped normal sterile fashion lithotomy position. Weighted speculum was placed in the vagina and the anterior and posterior lips of the cervix were grasped with Sanabria tenaculum. I then injected 20 cc of 2% Xylocaine with epinephrine circumferentially about the cervix. I then circumscribed the cervix with knife. I opened up into the posterior cul-de-sac with large Oneal scissors. A long weighted speculum was then placed within this defect. The left uterosacral ligament was then clamped cut and suture-ligated and tagged. This was followed by clamping cutting and suture ligating the cardinal ligament. Similarly on the right side we clamped cut suture-ligated and tagged the right uterosacral ligament. This was followed by the right cardinal ligament which was clamped cut and suture-ligated. I then grasped the anterior vaginal mucosa and opened up into the anterior cul-de-sac. A Caryn retractor was placed through this defect. I clamped across the uterine arteries and closing both the anterior and posterior peritoneum. This was clamped cut and suture-ligated. This was similarly performed on the right side. I then clamped across the utero-ovarian ligaments bilaterally. The uterus was then removed in its entirety. I then doubly suture-ligated the utero-ovarian pedicles. I then changed to a short weighted speculum. The posterior peritoneum was then closed with running 2-0 Vicryl suture in a locked fashion. I then placed a Parisi suture using 0 PDS suture. I placed the suture through the posterior vagina and peritoneum and then through the left distal uterosacral ligament. I then plicated across posterior peritoneum and pick pulling machine tender the right distal uterosacral ligament. The suture was then passed through the peritoneum and out through the vagina. I placed a second similar 0 PDS suture slightly above the first suture in the same fashion. These were both left to be tied at the end. I then placed a 2-0 Vicryl suture starting anteriorly in a pursestring fashion to close the peritoneum. This was tied. The vaginal mucosa was then closed using running 0 Vicryl suture in a locked fashion from left to right from anterior to posterior. The Parisi sutures were then tied. A Lujan cath was then placed in the bladder and clear urine was seen to flow. She tolerated the procedure well and was taken to the recovery room in excellent condition. All sponge, instrument counts and needle counts were correct. The estimated blood loss was less than 100 cc. Condition: stable Disposition: PACU Specimens:: Uterus Complications:: None
--- NOTE | 2021-06-09 08:40 | P.PN_ITS ---
[facility] Anesthesia Record Part I Intake, IV Amount: 500 Estimated blood loss (mL): 100 Urine output (mL): 0 Blood Pressure: 127/59 SaO2: 100 Pulse Rate: 121 Respiratory Rate: 25 Temperature: 97.9 F Patient is:: Awake Stable to PACU at:: 08:35
--- NOTE | 2021-06-09 08:41 | HMH.HP ---
*Admission Date: 06/09/21 *Chief complaint: Dyspareunia, dysmenorrhea *History of present illness: She is a 30-year-old lady who complains of severe pain with intercourse. She has had a previous bilateral salpingectomy as well as endometrial ablation. Despite this she continued to have tenderness in the uterus. On examination in my office her uterus was exquisitely tender. As result of this she was offered vaginal hysterectomy. She also has an enterocele. The risks and benefits of surgery were discussed the patient prior to surgery. [facility] History I have reviewed the patient's past medical history: Yes Medical History: Reports:: Anxiety, Kidney Stones Denies:: Cancer, Diabetes Mellitus Type 1, Diabetes Mellitus Type 2, Hypertension, Internal Pacemaker, MRSA, Seizures *Have you ever received a pneumonia vaccine?: No *Have you received a flu vaccine this season?: No Other Medical History: Reports: Other. Denies: Blood Transfusion Reaction Anesthesia experience/problems:: None Other Surgeries: Yes: No Previous Surgery, Diagnostic Lap, Tubal Ligation (Bilateral Salpingectomy), Other. No: , Pacemaker Amputation: No Fractures: No - *Social History Last grade of school completed: High school graduate Smoking Status: Current every day smoker Tobacco Type: cigarettes # Packs/Day (cigarettes): 1 Alcohol Intake: current Alcohol Intake Frequency:: holidays/special occasions only Substance Use Type: denies use *Occupational Status:: employed Housing: house Household Members: family *Travel in the last 8 weeks: None - Psychiatric History Pschychiatric History:: Reports:: Anxiety Family Hx:: No significant family history ACID BLOWER history: Spontaneous Review of Systems - Review of Systems Review of systems:: pertinent systems reviewed and negative unless documented below Meds Home Medications Medication Instructions Recorded Confirmed Type No Known Home Medications 05/25/21 06/09/21 History Allergies Allergy/AdvReac Type Severity Reaction Status Date / Time latex [LATEX] Allergy Unknown Verified 06/09/21 06:17 Exam Vital signs and Labs for Last 24 Hours: Temp Pulse Resp BP Pulse Ox 97.7 F 66 18 110/62 99 06/09/21 06:19 06/09/21 06:19 06/09/21 06:19 06/09/21 06:19 06/09/21 06:19 Laboratory Results - last 24 hr 06/09/21 06:37: SARS-CoV-2 (PCR) Not detected, Influenza A Untype (PCR) Not detected, Influenza Type B (PCR) Not detected I & O for Last 24 hours: Intake & Output 06/06/21 06/07/21 06/08/21 06/09/21 11:59 11:59 11:59 11:59 Weight 121 lb - Constitutional no acute distress - *Routine HEENT Exam Head: Present: normocephalic Eye: Present: EOMI, PERRL ENT: Present: mucous membranes moist - *Routine Neck Exam Present: supple, full ROM - *Routine Respiratory Exam Absent: accessory muscle use (good air entry bilaterally), wheezes, crackles - *Routine Cardiovascular Exam Present: RRR. Absent: murmur - *Routine Abdominal Exam Present: soft, normoactive bowel sounds. Absent: tenderness, rebound, guarding, mass - *Routine Rectal Exam Rectal:: deferred - *Routine Genitalia Exam Genitalia:: normal female - *Routine Extremities Exam Present: full ROM. Absent: cyanosis, edema, calf tenderness - *Routine Skin Exam Present: intact (good color) - *Routine Neurological Exam Present: alert, oriented X3 - Routine Psychiatric Exam Present: normal affect - Detailed Rectal Exam Patient deferred: visual exam, digital exam - Detailed Exam Patient deferred: external exam, groin exam, perineal exam Assessment and Plan (1) Dyspareunia in female Status: Acute Category: Medical Code(s): N94.10 - Unspecified dyspareunia (2) Dysmenorrhea Status: Acute Category: Medical Code(s): N94.6 - Dysmenorrhea, unspecified (3) Adenomyosis Status: Acute Category: Medical Code(s): N80.0 - Endometriosis of uterus (4) Uterovaginal prol
--- NOTE | 2021-06-09 09:12 | PC.NURSE ---
PATIENT ARRIVED TO FLOOR AT THIS TIME. BED LOCKED IN LOWEST POSITION. CALL LIGHT WITH IN REACH. CONTRERAS IN PLACE, IV INFUSING WITHOUT DIFFICULTY. REPORTS BURNING/CRAMPING MILD AT THIS TIME. SCANT VAGINAL BLEEDING. NO DISTRESS NOTED IN PATIENT. POC EXPLAINED AND PT AGREEABLE.
--- NOTE | 2021-06-09 10:51 | HMH.PHAVTE ---
[facility] Pharmacy VTE Monitoring - Patient Demographics Admission date: 06/09/21 Report Date: 06/09/21 Time: 10:51 Allergies/Adverse Reactions: Patient Allergies latex [LATEX] Allergy (Unknown, Verified 06/09/21 06:17) Height: 1.63 m Weight: 54.885 kg Patient Problems: Current Active Problems Dyspareunia in female (Acute) Dysmenorrhea (Acute) Adenomyosis (Acute) Uterovaginal prolapse, incomplete (Acute) Vaginal enterocele due to incomplete uterovaginal prolapse (Acute) - Prophylaxis VTE Prophylaxis Ordered?: Yes Types of VTE Prophylaxis: IPCS Thigh High Location of Applied Device: Bilateral Lower Extremeties
[2021-06-09 13:03] LABS: Microscopic,Cath URINE MICROSCOPIC (MICROSCOPIC)
[2021-06-09 13:10] LABS: Appearance,Urine/Cath CLEAR (Clear); Bilirubin,Cath Negative (Negative); Blood, Urine/Cath 2+ (Negative); Color,Urine/Cath YELLOW (Yellow); Glucose,Urine/Cath (UA) Negative (Negative); Ketones,Urine/Cath Negative (Negative); Leukocyte Esterase,Cath Negative (Negative); Nitrate,Cath Negative (Negative); Protein,Urine/Cath Negative (Negative); Specific Gravity, Urine/Cath <= 1.005 (1.005-1.030); Urobilinogen,Cath 0.2 EU/dl (0.2)
--- NOTE | 2021-06-09 13:10 | PC.NURSE ---
PT REQUESTED CONTRERAS BE D/C. CONTRERAS D/C AT 1305- TOLERATED WELL. UP TO BATHROOM NOW TO GET MESH PANTIES ON. DONE VERY WELL AMBULATING.
[2021-06-09 13:41] LABS: Bacteria,Urine/Cath TRACE /lpf; RBC,Urine/Cath Occasional # /hpf (0-3); Squamous Epithelial Ur./Cath Occasional #/hpf (0-5); WBC,Urine/Cath Occasional #/hpf (0-3)
--- NOTE | 2021-06-09 15:22 | PC.NURSE ---
no changes in previous assessment. patient medicated numerous times for pain today per mar. patient complaining of sharp stabbing pains and cramping. reports cramping is better after toradol administration. small amount of vag bleeding. going to get patient up again to use restroom. iv infusing. lungs cta and bowel hypoactive. no current needs voiced.
[2021-06-09 16:16] LABS: Hematocrit 35.5 % (37.0-47.0); Hemoglobin 11.7 g/dL (12.2-16.2)
--- NOTE | 2021-06-09 16:37 | PC.NURSE ---
dr cruz here rounding. report given
--- NOTE | 2021-06-09 17:38 | PC.NURSE ---
MD REPORTS TO DECREASE FLUIDS TO 50/MLR OVER NIGHT. R/V
--- NOTE | 2021-06-09 18:39 | PC.NURSE ---
PATIENT MEDICATED PER APR. ICE PACK GIVEN EARLIER IN SHIFT, REPORTS THIS IS HELPING WITH ABD PAIN. NO OTHER NEEDS VOICED TO NURSE.
[2021-06-10 02:21] VITALS: RESP 18
[2021-06-10 04:00] VITALS: BP 100/65; PULSE 88; RESP 18; TEMP 36.8; O2SAT 99
[2021-06-10 04:22] VITALS: RESP 18
--- NOTE | 2021-06-10 05:06 | PC.NURSE ---
Late entry: 0400 no acute changes from previous assessment. Pt has rested well this shift with adequate relief from prn and scheduled pain medication. vital signs remain stable. Ice pack refilled and placed to pt's abdomen per her request. Minimal vaginal bleeding this shift. Call light remains within reach.
[2021-06-10 07:03] LABS: Basophils # 0.1 K/mm3 (0-0.2); Basophils % 1.6 % (0.1-2.0); Eosinophils # 0.1 K/mm3 (0.0-0.4); Eosinophils % 1.1 % (0.1-12.0); Hematocrit 34.5 % (37.0-47.0); Hemoglobin 11.3 g/dL (12.2-16.2); Lymphocytes # 2.2 K/mm3 (0.7-4.5); Lymphocytes % 39.4 % (10-50); Mean Corpuscular HGB Conc 32.9 g/dL (31.8-35.4); Mean Corpuscular Hemoglobin 32.9 pg (27.0-31.2); Mean Corpuscular Volume 100.2 fl (81-99); Monocytes # 0.5 K/mm3 (0.1-1.0); Monocytes % 8.8 % (1.7-9.3); Neutrophils # 2.7 K/mm3 (1.8-7.8); Platelet Count 242 K/mm3 (142-424); Red Blood Count 3.44 M/mm3 (4.20-5.40); White Blood Count 5.5 K/mm3 (4.8-10.8)
--- NOTE | 2021-06-10 07:07 | PC.NURSE ---
REPORT GIVEN TO NADIR BRIONES
[2021-06-10 07:18] LABS: Anion Gap 7.7 mEq/L (5-15); Blood Urea Nitrogen 13 mg/dl (7-17); Calcium 8.1 mg/dl (8.4-10.2); Carbon Dioxide 28 mmol/L (22.0-30.0); Chloride 106 mmol/L (98-107); Creatinine Clearance Estimated 145 mL/min (50-200); Estimated Glomerular Filt Rate 147 ml/min (>60); GFR (African American) 178 ML/MIN (>60); Glucose 90 mg/dl (74-100); Potassium 3.7 mmoL/L (3.5-5.1); Sodium 138 mmol/L (136-145)
[2021-06-10 08:00] VITALS: BP 94/46; PULSE 82; RESP 18; TEMP 36.6; O2SAT 95
[2021-06-10 08:10] VITALS: O2SAT 95
--- NOTE | 2021-06-10 10:20 | PC.NURSE ---
dr cruz here- going to d/c patient
--- NOTE | 2021-06-10 10:38 | HMH.DCSUM ---
General - General Admission date:: 06/09/21 Discharge date: 06/10/21 HPI HPI: She is a 30-year-old lady who complains of severe pain with intercourse. She has had a previous bilateral salpingectomy as well as endometrial ablation. Despite this she continued to have tenderness in the uterus. On examination in my office her uterus was exquisitely tender. As result of this she was offered vaginal hysterectomy. She also has an enterocele. The risks and benefits of surgery were discussed the patient prior to surgery. Hospital Course Hospital Course: On June 09, 2021 she underwent a vaginal hysterectomy with enterocele repair. She has done well post surgery and has remained afebrile throughout her hospitalization. Her hemoglobin is stable at 11.3. Her pain is reasonably well controlled. She is eating and drinking and ambulating. She is voiding well. She will be discharged home to follow-up with me in approximately 2 weeks time. She will continue with her home medications. She was given a prescription for hydromorphone 2 mg to take 1 tablet every 4-6 hours as needed for pain. She will also take ibuprofen at home. She was given the usual instructions with respect to limiting her activity, driving and sexual activity. Her condition on discharge is stable and improved. Objective Vital signs: Temp Pulse Resp BP Pulse Ox 97.9 F 82 18 94/46 L 95 06/10/21 08:00 06/10/21 08:00 06/10/21 08:00 06/10/21 08:00 06/10/21 08:10 no acute distress - *Routine HEENT Exam Head: Present: normocephalic Eye: Present: EOMI, PERRL ENT: Present: mucous membranes moist - *Routine Neck Exam Present: supple - *Routine Respiratory Exam Present: CTA bilaterally - *Routine Cardiovascular Exam Present: RRR - *Routine Abdominal Exam Present: soft, normoactive bowel sounds. Absent: tenderness - *Routine Extremities Exam Absent: cyanosis, clubbing, edema Results Labs on day of discharge: Labs from last 24 hours 06/10/21 06/10/21 06/09/21 06:43 06:43 16:00 WBC 5.5 RBC 3.44 L Hgb 11.3 L 11.7 L Hct 34.5 L 35.5 L MCV 100.2 H MCH 32.9 H MCHC 32.9 RDW 13.0 Plt Count 242 MPV 9.0 Neut % (Auto) 49.0 Lymph % (Auto) 39.4 Henry % (Auto) 8.8 Eos % (Auto) 1.1 Baso % (Auto) 1.6 Neut # (Auto) 2.7 Lymph # (Auto) 2.2 Henry # (Auto) 0.5 Eos # (Auto) 0.1 Baso # (Auto) 0.1 Sodium 138 Potassium 3.7 Chloride 106 Carbon Dioxide 28 Anion Gap 7.7 BUN 13 Creatinine 0.50 L Estimated Creat Clear 145 Estimated GFR 147 Est GFR ( Amer) 178 Glucose 90 Calcium 8.1 L Urine Color Urine Appearance Urine pH Ur Specific Dalhart Urine Protein Urine Glucose (UA) Urine Ketones Urine Blood Urine Nitrate Urine Bilirubin Urine Urobilinogen Ur Leukocyte Esterase Urine RBC Urine WBC Ur Squamous Epith Cells Urine Bacteria 06/09/21 08:24 WBC RBC Hgb Hct MCV MCH MCHC RDW Plt Count MPV Neut % (Auto) Lymph % (Auto) Henry % (Auto) Eos % (Auto) Baso % (Auto) Neut # (Auto) Lymph # (Auto) Henry # (Auto) Eos # (Auto) Baso # (Auto) Sodium Potassium Chloride Carbon Dioxide Anion Gap BUN Creatinine Estimated Creat Clear Estimated GFR Est GFR ( Amer) Glucose Calcium Urine Color Yellow Urine Appearance Clear Urine pH 6.0 Ur Specific Dalhart <= 1.005 Urine Protein Negative Urine Glucose (UA) Negative Urine Ketones Negative Urine Blood 2+ Urine Nitrate Negative Urine Bilirubin Negative Urine Urobilinogen 0.2 Ur Leukocyte Esterase Negative Urine RBC Occasional Urine WBC Occasional Ur Squamous Epith Cells Occasional Urine Bacteria Trace DS: Diagnosis - Discharge Diagnosis (1) Dyspareunia in female Status: Acute (2) Dysmenorrhea Status: Acute (3) Adenomyosis Status: Acute (4
--- NOTE | 2021-06-10 10:57 | PC.NURSE ---
d/c education provided at this time. patient v/u. encouraged questions.
== END 2021-06-10 11:20 | disposition home or self-care (01) ==
LOC: OB 09:23
PROVIDERS: Admitting Provider Nurse Practitioner Obstetrics & Gynecology; PCP Nurse Practitioner Family; Visit Provider Nurse Practitioner Obstetrics & Gynecology
PROC: (CPT 58270; principal; 2021-06-09 07:30)
DX: N81.2 Incomplete uterovaginal prolapse (principal); N94.10 Unspecified dyspareunia; N94.6 Dysmenorrhea, unspecified; N80.0 Endometriosis of uterus; F17.210 Nicotine dependence, cigarettes, uncomplicated; Z20.822 Contact with and (suspected) exposure to COVID-19
CPT/HCPCS: 58270; 36415; 80048; 81001; 85014; 85018; 85025; 96374; C9803; G0378; J2405; U0003; U0005

== ENCOUNTER 2021-08-01 19:22 | Emergency (ER) | payer OTHER, SELFPAY ==
[2021-08-01 19:25] VITALS: BP 123/70; PULSE 90; RESP 26; TEMP 37; O2SAT 100; BMI 17.2
[2021-08-01 19:36] VITALS: BP 123/70; PULSE 90; RESP 26; TEMP 37; O2SAT 100
--- NOTE | 2021-08-01 19:37 | HMH.EDUTC ---
[facility] Disposition Clinical Impression: Bronchitis Sinusitis Qualifiers: Sinusitis location: unspecified location Chronicity: unspecified Qualified Code(s): J32.9 - Chronic sinusitis, unspecified Disposition: Home, Self-Care Condition on Discharge: Good Instructions: Sinusitis, DI for Sinusitis, DI for Acute Bronchitis Additional Instructions: ? Start antibiotic today. Be sure to complete entire prescription even if feeling better ? Monitor temp. Tylenol every 4 hours as needed and / or ibuprofen every 6 hours as needed ( As long as your primary care physician has told you that it ok to take both. For fever/aches/pains ER if no less than 101 despite Tylenol or Motrin ? Humidifier/vaporizer or hot steamy shower ? Inhaler every 4-6 hours as needed like we discussed. If unsure how to use it, ask pharmacist to demonstrate how. Should help open airways and improve cough, wheezing, and shortness of breath Take cough medication as prescribed *Start steroid today. Helps with inflammation therefore, cough and wheezing. Follow directions on the package. Reviewed side effects. Patient reports taking them before. Follow up IMMEDIATELY for new or worsening of symptoms OR no noticeable improvement over the next 48-72 hours. 911 immediately for any life threatening symptoms such as chest pain or difficulty breathing Prescriptions: Albuterol Sulfate [Proventil-HFA 90mcg/puff Inh] 1 - 2 puffs IH Q6HP PRN #1 each PRN Reason: Shortness Of Breath Transmission Status: Received by [facility] Brompheniramine/Pseudoephed/Dm [Bromfed Dm Cough Syrup] 5 - 10 ml PO Q4-6H PRN #200 ml PRN Reason: Cough Transmission Status: Received by [facility] methylPREDNISolone [Medrol 4mg tab] 4 mg PO DIRECTED #21 tab Transmission Status: Received by [facility] Azithromycin [Z-Flip 250mg Tab] 250 mg PO DIRECTED #6 tab Transmission Status: Received by [facility] Referrals: Radha Leal APRN [Primary Care Provider] - As needed Time of Disposition: 20:03 Medical Decision Making - Liborio Inquiry Pt receiving controlled substance: No Liborio was queried for this patient: No Vital Signs: 08/01/21 19:25 08/01/21 19:36 Temperature 98.6 F 98.6 F Temperature Source Oral Pulse Rate 90 Pulse Rate [Right Brachial] 90 Respiratory Rate 26 H 26 H Blood Pressure 123/70 Blood Pressure [Right Arm] 123/70 Blood Pressure Mean [Right Arm] 87 Blood Pressure Source [Right Arm] Automatic Cuff Blood Pressure Position [Right Arm] Sitting 02 Sat by Pulse Oximetry 100 Oxygen Delivery Method Room Air Orders (Tests/Meds): ED MEDICATIONS Discontinued Medications Generic Name Dose Route Start Last Admin Trade Name Freq PRN Reason Stop Dose Admin Albuterol/Ipratropium 3 ml 08/01/21 19:41 08/01/21 19:58 Ipratropium/Albuterol 3 Ml Neb IH 08/01/21 19:42 3 ml ONCE ONE Administration Ceftriaxone Sodium 1 gm 08/01/21 19:41 08/01/21 19:55 Ceftriaxone 1gm Vial IM 08/01/21 19:42 1 gm ONCE ONE Administration Lidocaine HCl 0 ml 08/01/21 19:41 08/01/21 19:55 Lidocaine 1% 5ml Pf Vial IM 08/01/21 19:42 2 ml ONCE ONE Administration Methylprednisolone Sodium Succinate 125 mg 08/01/21 19:41 08/01/21 19:55 Methylprednisolone Sod Succ 125mg Vial IM 08/01/21 19:42 125 mg ONCE ONE Administration Medical Decision Narrative: Patient state that she is feeling much better after injection and neb treatment [facility] HPI - General Stated complaint: Congestion Time Seen by Provider: 08/01/21 19:38 Mode of Arrival: Ambulatory Source of Information: Patient Limitations: No Limitations Description of Symptoms (Recalled from Triage Doc. by RN): PATIENT C/O CONGESTION, COUGH, SORE THROAT, AND SOA HEENT Symptoms (Recalled from RN notes): Yes Resp Symptoms (Recalled from RN notes): Yes Skin Symptoms (Recalled from RN notes): No MS Symptoms (Recalled from RN notes): No Functional Status (R
== END 2021-08-01 20:08 | disposition home or self-care (01) ==
PROVIDERS: Emergency Provider Nurse Practitioner; PCP Nurse Practitioner Family
DX: J40 Bronchitis, not specified as acute or chronic (principal); J32.9 Chronic sinusitis, unspecified
CPT/HCPCS: 96372; 99212; G0463; J0696

== ENCOUNTER 2021-10-27 08:00 | Emergency (ER) | payer OTHER, SELFPAY ==
[2021-10-27 08:15] VITALS: BP 117/89; PULSE 70; RESP 20; TEMP 36.8; O2SAT 99; BMI 21.6
[2021-10-27 08:38] LABS: Apearance,Urine Clear (Clear); Color,Urine Yellow (Yellow)
[2021-10-27 08:39] LABS: Bilirubin,Urine Negative (Negative); Blood, Urine Negative (Negative); Glucose,Urine (UA) Negative (Negative); Ketones,Urine Negative (Negative); Protein,Urine Negative (Negative); Specific Gravity, Urine 1.025 (1.005-1.030); UTC Leukocyte Esterase,Urine Negative (Negative); UTC Nitrate,Urine Negative (Negative); Urobilinogen,Urine 0.2 EU/dl (0.2)
--- NOTE | 2021-10-27 08:43 | EXP.UTC ---
Discharge Plan Disposition Patient Disposition: Home, Self-Care Condition: Good Prescriptions Prescriptions: New cephalexin 500 mg capsule 500 mg PO BID Qty: 10 0RF phenazopyridine [Pyridium] 200 mg tablet 200 mg PO Q8H 2 Days Qty: 6 0RF Referrals Follow up/Referrals: Radha Leal APRN [Primary Care Provider] - See instructions Activity Restrictions/Add. Instructions Additional Instructions/Restrictions: *Increase fluids. Water not Soda or Tea *Start antibiotic immediately and be sure to take as ordered for the FULL length of time although you should start to see improvement over the next 48 hours *Pyridium as needed Remember this medication will turn your urine . This is normal but it will stain what ever it gets on *You should not use Pyridium for more than 48 hours. If so , follow up with your primary physician to review urine culture and ensure that antibiotic is adequate for infection *Be SURE to follow up anytime for new or worsening symptoms with your family doctor. AND in 48 hours for urine culture results with your family doctor, if you do not have a doctor then you may call back to the [facility] for urine culture results and further treatment. We do recommend that you choose and establish care with a Primary Care Physician. ?AND follow up with them ?in 10-14 days to repeat UA to ensure infection is resolved and blood no longer present *Be sure to let your PCP know that we sent urine cultures from the [facility] so they can follow up to ensure that you area the on the correct antibiotic Call your doctor office and make appointment for 48 hours (2 days from today) ?to follow up and get the results of your urine culture and further treatment Clinical Impressions Clinical Impression: Urinary tract infection Instructions Patient Instructions: Urinary Tract Infection Discharge ED Provider: Selma Mcghee [place] HPI General Stated complaint: Possible UTI Mode of Arrival: Ambulatory Source of Information: Patient Limitations: No Limitations Time Seen by Provider: 10/27/21 08:43 Description of Symptoms (Recalled from Triage Doc. by RN): PATIENT C/O BLADDER PRESSURE/PAIN HEENT Symptoms (Recalled from RN notes): No Resp Symptoms (Recalled from RN notes): No Skin Symptoms (Recalled from RN notes): No MS Symptoms (Recalled from RN notes): No Functional Status (Recalled from RN notes): WNL History of Present Illness Provider Complaint: Patient states that she feels like she has a UTI States that she has been having bladder pressure and feeling of urgency and frequency along with burning with urination for several days like she gets when she has a UTI Related Data Previous Rx's Medication Instructions Recorded cephalexin 500 mg capsule 500 mg PO BID #10 caps 10/27/21 phenazopyridine 200 mg tablet 200 mg PO Q8H pain 2 days #6 tabs 10/27/21 (Pyridium) Allergies Allergy/AdvReac Type Severity Reaction Status Date / Time latex [LATEX] Allergy Unknown Verified 08/23/21 15:16 Worker's Comp Is this a Worker's Comp case?: No PFSH [facility] Medical History (Updated 10/27/21 @ 08:50 by Selma Mcghee APRN) Depression Kidney stone Migraine Urinary tract infection Surgical History (Updated 10/27/21 @ 08:30 by Ludmila Eugene RN) History of hysterectomy History of tubal ligation Social History (Updated 10/27/21 @ 08:30 by Ludmila Eugene RN) Smoking Status: Current every day smoker tobacco type: cigarettes packs per day: 1 second hand exposure: No alcohol intake: never substance use type: denies use current occupational status: other Travel in the last 8 weeks: None household members: family housing: house number of children: 2 current occupation: [employer] current occupational exposures/hazards: No caffeine: Yes ROS Obtained: Yes All systems reviewed & no additional complaints except as documented and Yes Systems reviewed as appropriate & no additional complaints except as documente
[2021-10-27 08:55] VITALS: BP 117/89; PULSE 70; RESP 20; TEMP 36.8; O2SAT 99
== END 2021-10-27 08:58 | disposition home or self-care (01) ==
PROVIDERS: Emergency Provider Nurse Practitioner; PCP Nurse Practitioner Family
DX: N39.0 Urinary tract infection, site not specified (principal)
CPT/HCPCS: 81003; 87086; 99212; G0463

== ENCOUNTER 2021-12-18 08:01 | Emergency (ER) | payer OTHER, SELFPAY ==
[2021-12-18 08:10] VITALS: BP 108/67; PULSE 70; RESP 18; TEMP 36.8; O2SAT 99; BMI 19.1
--- NOTE | 2021-12-18 08:39 | EXP.UTC ---
Discharge Plan Disposition Patient Disposition: Home, Self-Care Condition: Good Prescriptions Prescriptions: New cefdinir 300 mg capsule 300 mg PO BID Qty: 20 0RF fluticasone propionate [Flonase Allergy Relief] 50 mcg/actuation spray,suspension 1 spray intranasal DAILY Qty: 16 0RF Rx Instructions: administer into each nostril No Action buspirone 5 mg tablet 5 mg PO BID fluoxetine 20 mg capsule 20 mg PO DAILY Referrals Follow up/Referrals: Immanuel Kramer MD [Primary Care Provider] - See instructions Activity Restrictions/Add. Instructions Additional Instructions/Restrictions: Take medication as prescribed Follow up with your Family Doctor if no improvement or any worsening of symptoms Return if needed Straight to ER if any life threatening symptoms Clinical Impressions Clinical Impression: Otitis media Instructions Patient Instructions: Sore Throat, Middle Ear Infection Discharge ED Provider: Selma Mcghee [facility] General Stated complaint: Ear pain, sore throat Mode of Arrival: Ambulatory Source of Information: Patient Limitations: No Limitations Time Seen by Provider: 12/18/21 08:39 Description of Symptoms (Recalled from Triage Doc. by RN): PATIENT C/O RIGHT EAR ACHE AND SORE THROAT X 2 DAYS HEENT Symptoms (Recalled from RN notes): Yes Resp Symptoms (Recalled from RN notes): No Skin Symptoms (Recalled from RN notes): No MS Symptoms (Recalled from RN notes): No Functional Status (Recalled from RN notes): WNL History of Present Illness Provider Complaint: Patient states that she has been having pain in her right ear and sore throat for a couple of days States that when she swallows pain shoots into her ear Thinks it is her ear causing her throat to hurt Related Data Home Medications Medication Instructions Recorded Confirmed buspirone 5 mg tablet 5 mg PO BID Anxiety 12/18/21 12/18/21 fluoxetine 20 mg capsule 20 mg PO DAILY Anxiety 12/18/21 12/18/21 Previous Rx's Medication Instructions Recorded cefdinir 300 mg capsule 300 mg PO BID #20 caps 12/18/21 fluticasone propionate 50 1 spray intranasal DAILY #16 grams 12/18/21 mcg/actuation nasal spray,suspension (Flonase Allergy Relief) Allergies Allergy/AdvReac Type Severity Reaction Status Date / Time latex [LATEX] Allergy Unknown Verified 08/23/21 15:16 Worker's Comp Is this a Worker's Comp case?: No PFSH PFS Medical History (Updated 12/18/21 @ 08:44 by Selma Mcghee APRN) Anxiety Depression Kidney stone Migraine Urinary tract infection Surgical History History of hysterectomy History of tubal ligation Social History (Updated 12/18/21 @ 08:30 by Ludmila Eugene RN) Smoking Status: Current every day smoker tobacco type: cigarettes packs per day: 1 second hand exposure: No alcohol intake: never substance use type: denies use current occupational status: other Travel in the last 8 weeks: None household members: family housing: house number of children: 2 current occupation: [employer] current occupational exposures/hazards: No caffeine: Yes ROS Obtained: Yes All systems reviewed & no additional complaints except as documented and Yes Systems reviewed as appropriate & no additional complaints except as documented Constitutional Constitutional: Reports system reviewed and no additional complaints, except as documented, Reports as per HPI and Denies fever(s) ENT Ears, Nose, Mouth, and Throat: Reports system reviewed and no additional complaints, except as documented, Reports as per HPI, Reports otalgia and Reports sore throat Cardiovascular Cardiovascular: Reports system reviewed and no additional complaints, except as documented and Reports as per HPI Respiratory Respiratory: Reports system reviewed and no additional complaints, except as documented and Reports as per HPI Physical Exam General Gene
[2021-12-18 08:49] VITALS: BP 108/67; PULSE 70; RESP 18; TEMP 36.8; O2SAT 99
== END 2021-12-18 08:51 | disposition home or self-care (01) ==
PROVIDERS: Emergency Provider Nurse Practitioner; PCP Pediatrics
DX: H66.90 Otitis media, unspecified, unspecified ear (principal)
CPT/HCPCS: 99212; G0463

== ENCOUNTER 2022-03-19 09:00 | Emergency (ER) | payer OTHER, SELFPAY ==
[2022-03-19 09:05] VITALS: BP 105/60; PULSE 67; RESP 22; TEMP 36.6; O2SAT 99; BMI 18.3
--- NOTE | 2022-03-19 09:07 | EXP.UTC ---
Discharge Plan Disposition Patient Disposition: Home, Self-Care Condition: Good Prescriptions Prescriptions: New amoxicillin [amoxicillin] 500 mg tablet 500 mg PO TID 10 Days Qty: 30 0RF methylprednisolone 4 mg Tablets,Dose Pack 4 mg PO DIRECTED Qty: 21 0RF [id number] [Bromfed DM] 2-30-10 mg/5 mL Syrup 5 ml PO Q6H PRN (Reason: Cough) Qty: 240 0RF No Action fluoxetine 20 mg capsule 20 mg PO DAILY Referrals Follow up/Referrals: Radha Leal APRN [Primary Care Provider] - See instructions Activity Restrictions/Add. Instructions Additional Instructions/Restrictions: Drink plenty of fluids. Take tylenol or ibuprofen for pain or fever. Take the medications as directed. Follow up with your regular doctor. GO TO THE ER FOR ANY WORSENING SYMPTOMS Clinical Impressions Clinical Impression: Otitis media Stand Alone Forms Stand Alone Forms: Work/School Release Instructions Patient Instructions: Middle Ear Infection, DI for Pharyngitis/Tonsillopharyngitis -- Adult Discharge ED Provider: Theron Rowe [facility] General Stated complaint: ear pain Time Seen by Provider: 03/19/22 09:07 History of Present Illness Provider Complaint: She c/o bilateral ear pain (left worse than right) for the past several days. Related Data Home Medications Medication Instructions Recorded Confirmed fluoxetine 20 mg capsule 20 mg PO DAILY Anxiety 12/18/21 03/19/22 Previous Rx's Medication Instructions Recorded amoxicillin 500 mg tablet 500 mg PO TID 10 days #30 tabs 03/19/22 [id number] 5 ml PO Q6H PRN Cough #240 mL 03/19/22 2 mg-30 mg-10 mg/5 mL oral syrup (Bromfed DM) methylprednisolone 4 mg tablets in 4 mg PO DIRECTED #21 tabs 03/19/22 a dose pack Allergies Allergy/AdvReac Type Severity Reaction Status Date / Time latex [LATEX] Allergy Unknown Verified 08/23/21 15:16 [facility] Disclaimer: The information contained in this section may have been updated after the patient was seen, as this information can be updated by other users. Medical History Anxiety Depression Kidney stone Migraine Urinary tract infection Surgical History History of hysterectomy History of tubal ligation Social History Smoking Status: Current every day smoker tobacco type: cigarettes packs per day: 1 second hand exposure: No alcohol intake: never substance use type: denies use current occupational status: other Travel in the last 8 weeks: None household members: family housing: house number of children: 2 current occupation: [employer] current occupational exposures/hazards: No caffeine: Yes ROS Obtained: Yes All systems reviewed & no additional complaints except as documented Constitutional Constitutional: Denies chills, Reports fever(s) and Reports poor appetite Eyes Eyes: Denies eye discharge ENT Ears, Nose, Mouth, and Throat: Denies ear discharge, Reports otalgia, Denies hearing loss, Denies sinus pain and Reports sore throat Cardiovascular Cardiovascular: Denies chest pain and Denies dyspnea Respiratory Respiratory: Denies chest congestion, Reports cough and Denies dyspnea Gastrointestinal Gastrointestingal: Denies abdominal pain, diarrhea, nausea or vomiting Musculoskeletal Musculoskeletal: Denies arthralgias Integumentary/Breasts Skin/Breast: Denies rash Physical Exam General General appearance: alert and in no apparent distress Head Head exam: atraumatic, normocephalic and normal inspection Eye Eye exam: Present normal appearance; Absent PERRL or EOMI ENT ENT exam: Present mucous membranes moist and normal external ear exam Expanded ENT Exam TM/Canal exam: Bilateral TM: erythema, bulging and effusion Nose exam: Absent sinus tenderness Nasal specu
[2022-03-19 09:34] VITALS: BP 105/60; PULSE 67; RESP 22; TEMP 36.6; O2SAT 99
== END 2022-03-19 09:51 | disposition home or self-care (01) ==
PROVIDERS: Emergency Provider Nurse Practitioner Family; PCP Nurse Practitioner Family
DX: H66.90 Otitis media, unspecified, unspecified ear (principal)
CPT/HCPCS: 99212; 99213; G0463

== ENCOUNTER 2022-04-02 12:56 | Emergency (ER) | payer OTHER, SELFPAY ==
[2022-04-02 12:57] VITALS: BP 120/96; PULSE 125; RESP 20; TEMP 36.8; O2SAT 99; BMI 17.4
--- NOTE | 2022-04-02 13:11 | PC.NURSE ---
DR DOWNS AT BEDSIDE
[2022-04-02 13:50] VITALS: BP 121/64; PULSE 112; O2SAT 95
--- NOTE | 2022-04-02 13:50 | HMH.EDGENADL ---
Discharge Plan Disposition Patient Disposition: Home, Self-Care Condition: Good Chief Complaint: Anxiety Prescriptions Prescriptions: No Action fluoxetine 20 mg capsule 20 mg PO DAILY methylprednisolone 4 mg Tablets,Dose Pack 4 mg PO DIRECTED Qty: 21 0RF ucjhtsepldxmqfm-aqywcxbjs-HG [Bromfed DM] 2-30-10 mg/5 mL Syrup 5 ml PO Q6H PRN (Reason: Cough) Qty: 240 0RF azithromycin [Zithromax] 250 mg tablet 250 mg PO UD DOSE PK Qty: 6 0RF Rx Instructions: Take two (2) tablets today, then one (1) tablet days #2 thru #5 Referrals Follow up/Referrals: Radha Leal APRN [Primary Care Provider] - See instructions Activity Restrictions/Add. Instructions Additional Instructions/Restrictions: Follow-up with your primary care provider and your psychiatrist regarding this visit to the emergency department. I would recommend discontinuing your Ritalin in the meantime. Talk to them about starting guanfacine or atomoxetine, or some other nonstimulant medication to treat ADHD that will not exacerbate your anxiety symptoms. Clinical Impressions Clinical Impression: Panic attack Discharge ED Provider: Juan Arroyo General Adult HPI General Chief complaint: Anxiety Stated complaint: Right side tingling/face tightinh Time Seen by Provider: 04/02/22 13:04 Mode of Arrival: Ambulatory Source of Information: Patient Limitations: No Limitations Description of Symptoms (Recalled from ER Triage Doc. by RN): PT REPORTS HAVING AN ANXIETY ATTACK REPORTS TINGLING OF HER ARMS, TIGHTNESS OF THE RIGHT SIDE OF HER FACE. STARTED TAKING RITALIN ABOUT 5 DAYS AGO History of Present Illness HPI narrative: This is a 31-year-old female with history of anxiety, panic, ADHD presenting with multiple complaints. Patient states that she began taking Ritalin 2 days ago after being prescribed at approximately 5 days ago for ADHD. Today, she started becoming anxious, breathing quickly and noticed numbness in her face and hands. Her hands and wrists joselin up, and were cramping, since that time her face has also become numb, cramping on the right side. She states I cannot feel my heartbeat and my whole body feels numb, but denies chest pain, vision changes, unilateral deficits, weakness or any other concerns Related Data Home Medications Medication Instructions Recorded Confirmed fluoxetine 20 mg capsule 20 mg PO DAILY Anxiety 12/18/21 03/19/22 Previous Rx's Medication Instructions Recorded crelywerbnywrew-uwdtxvmhihbxizi-WK 5 ml PO Q6H PRN Cough #240 mL 03/19/22 2 mg-30 mg-10 mg/5 mL oral syrup (Bromfed DM) methylprednisolone 4 mg tablets in 4 mg PO DIRECTED #21 tabs 03/19/22 a dose pack azithromycin 250 mg tablet 250 mg PO UD DOSE PK #6 tabs 03/23/22 (Zithromax) Allergies Allergy/AdvReac Type Severity Reaction Status Date / Time latex [LATEX] Allergy Unknown Verified 08/23/21 15:16 [facility] Disclaimer: The information contained in this section may have been updated after the patient was seen, as this information can be updated by other users. Medical History Anxiety Depression Kidney stone Migraine Urinary tract infection Surgical History History of hysterectomy History of tubal ligation Social History Smoking Status: Current every day smoker tobacco type: cigarettes packs per day: 1 second hand exposure: No alcohol intake: never substance use type: denies use current occupational status: other Travel in the last 8 weeks: None household members: family housing: house number of children: 2 current occupation: [employer] current occupational exposures/hazards: No caffeine: Yes ROS Obtained: Yes All systems reviewed & no additional complaints except as documented Physical Exam General General appearance: al
--- NOTE | 2022-04-02 13:51 | PC.NURSE ---
pt resting in bed with spouse at bedside. pt reports relief of pain
[2022-04-02 14:50] VITALS: BP 110/65; BP 113/68; PULSE 91; RESP 16; RESP 18; TEMP 36.8; O2SAT 97; O2SAT 99
== END 2022-04-02 14:55 | disposition home or self-care (01) ==
PROVIDERS: Emergency Provider Emergency Medicine; PCP Nurse Practitioner Family
DX: F41.0 Panic disorder [episodic paroxysmal anxiety] (principal); F90.9 Attention-deficit hyperactivity disorder, unspecified type; F41.8 Other specified anxiety disorders; G43.909 Migraine, unspecified, not intractable, without status migrainosus; Z87.440 Personal history of urinary (tract) infections; Z87.442 Personal history of urinary calculi; F17.210 Nicotine dependence, cigarettes, uncomplicated; Z90.710 Acquired absence of both cervix and uterus; Z98.51 Tubal ligation status
CPT/HCPCS: 96374; 96375; 99284

== ENCOUNTER 2022-04-04 15:29 | Emergency (ER) | payer OTHER, SELFPAY ==
[2022-04-04 15:42] VITALS: BP 103/74; PULSE 61; RESP 18; TEMP 36.8; O2SAT 98; BMI 18.3
--- NOTE | 2022-04-04 16:38 | HMH.EDGENADL ---
Discharge Plan Disposition Patient Disposition: Home, Self-Care Condition: Good Prescriptions Prescriptions: New potassium chloride 10 mEq tablet,ER particles/crystals 10 meq PO DAILY Qty: 7 0RF No Action fluoxetine 20 mg capsule 20 mg PO DAILY Referrals Follow up/Referrals: Radha Leal APRN [Primary Care Provider] - See instructions Activity Restrictions/Add. Instructions Additional Instructions/Restrictions: Have your potassium level rechecked later this week by your primary care provider Clinical Impressions Clinical Impression: Acute hypokalemia, Panic attack Discharge ED Provider: Juan Judd General Adult HPI General Chief complaint: Recheck/Abnormal Lab/Rx Stated complaint: whole body numb, right side tightness Time Seen by Provider: 04/04/22 16:33 Mode of Arrival: Ambulatory Source of Information: Patient Limitations: No Limitations Description of Symptoms (Recalled from ER Triage Doc. by RN): PT REPORTS NUMBNESS AND TINGLING THROUGHOUT ENTIRE BODY, ALSO REPORTS TIGHTNESS IN BOTH HANDS AND R SIDE OF FACE, STATES SHE CAME IN MONDAY FOR THE SAME THING, STATES THESE SYMPTOMS BEGAN WHEN SHE STARTED TAKING RIDALINE, LAST DOSE TAKEN ON MONDAY History of Present Illness HPI narrative: Patient presents with a panic attack. She states her symptoms began earlier today consisting of tingling to the body and extremities as well as some shortness of air. She denies chest pain. She states that virtually identical symptoms a few days ago after having been on Ritalin. She states she has had the symptoms in fact multiple times in the past. She denies any recent stressors and denies being suicidal at this time. Related Data Home Medications Medication Instructions Recorded Confirmed fluoxetine 20 mg capsule 20 mg PO DAILY Anxiety 12/18/21 04/04/22 Previous Rx's Medication Instructions Recorded potassium chloride 10 mEq 10 meq PO DAILY #7 tabs 04/04/22 tablet,extended release(part/cryst) Allergies Allergy/AdvReac Type Severity Reaction Status Date / Time latex [LATEX] Allergy Unknown Verified 08/23/21 15:16 [facility] Disclaimer: The information contained in this section may have been updated after the patient was seen, as this information can be updated by other users. Medical History Anxiety Depression Kidney stone Migraine Urinary tract infection Surgical History History of hysterectomy History of tubal ligation Social History Smoking Status: Current every day smoker tobacco type: cigarettes packs per day: 1 second hand exposure: No alcohol intake: never substance use type: denies use current occupational status: other Travel in the last 8 weeks: None household members: family housing: house number of children: 2 current occupation: [employer] current occupational exposures/hazards: No caffeine: Yes ROS Obtained: Yes All systems reviewed & no additional complaints except as documented Physical Exam General General appearance: anxious Head Head exam: atraumatic, normocephalic and normal inspection Eye Eye exam: Present normal appearance, PERRL and EOMI ENT ENT exam: Present normal exam, normal oropharynx, mucous membranes moist, TM's normal bilaterally and normal external ear exam Neck Neck exam: Present normal inspection, full ROM and trachea midline; Absent meningismus or lymphadenopathy Chest Chest inspection: Present normal inspection and symmetric chest wall rise; Absent tenderness Respiratory Respiratory exam: Present normal lung sounds bilaterally; Absent respiratory distress Cardiovascular Cardiovascular exam: Present regular rate and normal rhythm; Absent JVD Abdominal Exam Abdominal exam: Present soft and normal bowel sounds; Absent distention, tenderness or guarding Extrem
--- NOTE | 2022-04-04 16:44 | PC.NURSE ---
PROVIDED PT WITH WARM BLANKET.
[2022-04-04 17:00] VITALS: BP 106/60; PULSE 72; RESP 18; O2SAT 100
[2022-04-04 17:30] VITALS: BP 105/69; PULSE 84; O2SAT 99
[2022-04-04 17:31] LABS: Basophils # 0.1 K/mm3 (0-0.2); Basophils % 0.9 % (0.1-2.0); Eosinophils # 0.1 K/mm3 (0.0-0.4); Eosinophils % 1.1 % (0.1-12.0); Hematocrit 35.7 % (37.0-47.0); Hemoglobin 12.5 g/dL (12.2-16.2); Lymphocytes # 1.8 K/mm3 (0.7-4.5); Lymphocytes % 31.1 % (10-50); Mean Corpuscular HGB Conc 34.9 g/dL (31.8-35.4); Mean Corpuscular Hemoglobin 33.3 pg (27.0-31.2); Mean Corpuscular Volume 95.4 fl (81-99); Mean Platelet Volume 8.6 fl (7.4-10.4); Monocytes # 0.4 K/mm3 (0.1-1.0); Monocytes % 6.8 % (1.7-9.3); Neutrophils # 3.5 K/mm3 (1.8-7.8); Neutrophils % 60.1 % (37.0-80.0); Platelet Count 283 K/mm3 (142-424); Red Blood Count 3.75 M/mm3 (4.20-5.40); Red Cell Distribution Width 12.9 % (11.5-17.5); White Blood Count 5.9 K/mm3 (4.8-10.8)
[2022-04-04 17:54] LABS: Chloride 109 mmol/L (98-107); Potassium 3.1 mmoL/L (3.5-5.1); Sodium 139 mmol/L (136-145)
[2022-04-04 17:57] LABS: Anion Gap 8.1 mEq/L (5-15); Blood Urea Nitrogen 11 mg/dl (7-17); Calcium 8.6 mg/dl (8.4-10.2); Carbon Dioxide 25 mmol/L (22.0-30.0); Creatinine Clearance Estimated 131 mL/min (50-200); Estimated Glomerular Filt Rate 146 ml/min (>60); GFR (African American) 177 ML/MIN (>60); Glucose 95 mg/dl (74-100)
[2022-04-04 18:00] VITALS: BP 100/65; PULSE 74; O2SAT 95
[2022-04-04 18:29] VITALS: BP 120/75; PULSE 75; RESP 15; TEMP 37; O2SAT 100
== END 2022-04-04 18:32 | disposition home or self-care (01) ==
PROVIDERS: Emergency Provider Emergency Medicine; PCP Nurse Practitioner Family
DX: E87.6 Hypokalemia (principal); F41.0 Panic disorder [episodic paroxysmal anxiety]; F41.8 Other specified anxiety disorders; G43.909 Migraine, unspecified, not intractable, without status migrainosus; Z87.440 Personal history of urinary (tract) infections; F17.210 Nicotine dependence, cigarettes, uncomplicated; Z87.442 Personal history of urinary calculi; Z90.710 Acquired absence of both cervix and uterus; Z98.51 Tubal ligation status
CPT/HCPCS: 80048; 85025; 99283; 99284

== ENCOUNTER 2022-08-28 15:48 | Emergency (ER) | payer OTHER, SELFPAY ==
--- NOTE | 2022-08-28 15:53 | XR_ITS ---
PROCEDURE INFORMATION: Exam: XR Left Knee Exam date and time: 08/28/2022 3:57 PM Age: 32 years old Clinical indication: Pain; Knee; Left; Additional info: Pain and swelling TECHNIQUE: Imaging protocol: Radiologic exam of the left knee. Views: 3 views. COMPARISON: No relevant prior studies available. FINDINGS: Bones/joints: Normal. No fracture evident Soft tissues: Normal. IMPRESSION: No acute findings.
[2022-08-28 16:00] VITALS: BP 116/78; PULSE 71; RESP 18; TEMP 36.6; O2SAT 99; BMI 18.6
--- NOTE | 2022-08-28 16:39 | EXP.UTC ---
Discharge Plan Disposition Patient Disposition: Home, Self-Care Condition: Good Prescriptions Prescriptions: No Action potassium chloride 10 mEq tablet,ER particles/crystals 10 meq PO DAILY Qty: 7 0RF fluoxetine 20 mg capsule 20 mg PO DAILY Referrals Follow up/Referrals: Radha Leal APRN [Primary Care Provider] - See instructions Activity Restrictions/Add. Instructions Additional Instructions/Restrictions: *weight bearing as tolerated *RICE, Rest the extremity, Ice 15-20 minutes 3-4 times daily, Compress- wear the elo wrap as discussed as much as possible to help reduce swelling and pain, Elevate the extremity when at rest *knee immobilizer is for support and help control swelling, use it except in the shower. Be sure that is not to tight but not to loose either *Elevate when resting? *Ibuprofen 600-800mg every 6-8 hours as needed for pain an inflammation. If need something more can take Tylenol in between doses of Ibuprofen to help Immediately follow up with your family doctor for new or worsening of symptoms, or no noticeable improvement over the next 3-5 days Clinical Impressions Clinical Impression: Acute knee pain Qualifiers: Laterality: left Qualified Code(s): M25.562 - Pain in left knee Instructions Patient Instructions: DI for Knee Pain, How to Use a Knee Immobilizer Discharge ED Provider: Selma Mcghee [facility] General Stated complaint: left knee pain Mode of Arrival: Ambulatory Source of Information: Patient Limitations: No Limitations Time Seen by Provider: 08/28/22 16:15 Description of Symptoms (Recalled from Triage Doc. 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 when she got a sharp pain in the outside of her left knee and felt like it was going to buckle on her States that ever since it has been hurting when she would walk on it so she came in to get it checked Related Data Home Medications Medication Instructions Recorded Confirmed fluoxetine 20 mg capsule 20 mg PO DAILY Anxiety 11/12/22 02/27/23 Previous Rx's Medication Instructions Recorded potassium chloride 10 mEq 10 meq PO DAILY #7 tabs 04/04/22 tablet,extended release(part/cryst) Allergies Allergy/AdvReac Type Severity Reaction Status Date / Time latex [LATEX] Allergy Unknown Verified 08/23/21 15:16 Worker's Comp Is this a Worker's Comp case?: No [facility] Disclaimer: The information contained in this section may have been updated after the patient was seen, as this information can be updated by other users. Medical History Anxiety Depression Kidney stone Migraine Urinary tract infection Surgical History History of hysterectomy History of tubal ligation Social History Smoking Status: Current every day smoker tobacco type: cigarettes packs per day: 1 second hand exposure: No alcohol intake: never substance use type: denies use current occupational status: other Travel in the last 8 weeks: None household members: family housing: house number of children: 2 current occupation: [employer] current occupational exposures/hazards: No caffeine: Yes ROS Obtained: Yes All systems reviewed & no additional complaints except as documented and Yes Systems reviewed as appropriate & no additional complaints except as documented ENT Ears, Nose, Mouth, and Throat: Reports system reviewed and no additional complaints, except as documented and Reports as per HPI Cardiovasc
[2022-08-28 17:07] VITALS: BP 116/78; PULSE 71; RESP 18; TEMP 36.6; O2SAT 99
== END 2022-08-28 17:23 | disposition home or self-care (01) ==
PROVIDERS: Emergency Provider Nurse Practitioner; PCP Nurse Practitioner Family
DX: M25.562 Pain in left knee (principal); F17.210 Nicotine dependence, cigarettes, uncomplicated; F41.9 Anxiety disorder, unspecified; F32.A Depression, unspecified
CPT/HCPCS: 73562; 99212; 99214; G0463

== ENCOUNTER → 2022-09-02 07:19 | Outpatient (CLI) | payer OTHER, SELFPAY ==
--- NOTE | 2022-09-02 07:38 | MR_ITS ---
FINAL REPORT TECHNIQUE: Multiplanar MR without contrast CLINICAL HISTORY: LEFT LATERAL KNEE PAIN. NO INJURY OR TRAUMA. KNEE INSTABILITY COMPARISON: None FINDINGS: Articular cartilage: No focal defect Marrow signal: Unremarkable Joint fluid: Physiologic Menisci: Normal morphology without tear Ligaments: Collateral and cruciate ligaments intact IMPRESSION: Unremarkable exam Reviewed, Interpreted and Dictated by Aziza Yip MD Transcribed by Mare Richter Authenticated and [facility]
== END ==
PROVIDERS: PCP Nurse Practitioner Family; Visit Provider Nurse Practitioner Family
DX: M25.562 Pain in left knee (principal)
CPT/HCPCS: 73721

== ENCOUNTER 2022-10-14 09:38 | Emergency (ER) | payer OTHER, SELFPAY ==
[2022-10-14 09:39] VITALS: BP 109/73; PULSE 69; RESP 18; TEMP 36.9; O2SAT 98; BMI 16.9
--- NOTE | 2022-10-14 10:01 | EXP.UTC ---
Discharge Plan Disposition Patient Disposition: Home, Self-Care Condition: Good Prescriptions Prescriptions: New azithromycin [Zithromax Z-Flip] 250 mg tablet See Rx Instructions .ROUTE .COMPLEX 5 Days Qty: 6 0RF Rx Instructions: For 250 mg dose pack: take 500 mg today (day 1), then 250 mg for 4 days (days 2-5) methylprednisolone [Medrol (Flip)] 4 mg tablets,dose pack See Rx Instructions .Route .COMPLEX 6 Days Qty: 21 0RF Rx Instructions: taper pack; No Action potassium chloride 10 mEq tablet,ER particles/crystals 10 meq PO DAILY Qty: 7 0RF fluoxetine 20 mg capsule 20 mg PO DAILY Referrals Follow up/Referrals: Radha Leal APRN [Primary Care Provider] - See instructions Activity Restrictions/Add. Instructions Additional Instructions/Restrictions: *Monitor Temp, Over the counter Motrin or Tylenol as directed/as needed Tylenol every 4 hours and Motrin every 6 hours (as long as your family doctor has told you that you can take it) for fever or pain. and straight to ER if unable to lower temp less than 101.0 after medication given *Warm salt water gargles may help to soothe the throat *Throat Lozenges? *Warm fluids like tea with honey may help to soothe the throat? *Sleep elevated *Humidifier/Vaporizer Your throat swab was sent for culture. Those results are typically sent to your primary care. Be sure to follow up in 2-3 days with your family doctor/primary care physician if no improvement so they can review those result and treat if necessary. If you don?t have a primary care doctor, I recommend you get one but in the mean time, you will have to return to a walk in clinic Follow up IMMEDIATELY for new or worsening symptoms or no Noticeable improvement over the next 48-72 hours. 911 for difficulty breathing or swallowing You were tested for today for COVID19 your test result should be back in the next 24 hours You may check your results on the [facility] [employer] [facility] Portal if you are positive you will need to Quarantine for 5 days Clinical Impressions Clinical Impression: Pharyngitis Qualifiers: Pharyngitis/tonsillitis etiology: unspecified etiology Qualified Code(s): J02.9 - Acute pharyngitis, unspecified Instructions Patient Instructions: Sore Throat, DI for Sinusitis Discharge ED Provider: Selma Mcghee [facility] General Stated complaint: Congestion sore throat cough Mode of Arrival: Ambulatory Source of Information: Patient Limitations: No Limitations Time Seen by Provider: 10/14/22 10:02 Description of Symptoms (Recalled from Triage Doc. by RN): Patient reports cough, congestion, sore throat, nausea, and diarrhea for 3 days. HEENT Symptoms (Recalled from RN notes): Yes Resp Symptoms (Recalled from RN notes): No Skin Symptoms (Recalled from RN notes): No MS Symptoms (Recalled from RN notes): No Functional Status (Recalled from RN notes): wnl History of Present Illness Provider Complaint: Patient states that she has been having sinus congestion and pressure, sore throat and feeling achy for about 3 days then last night she had some diarrhea State that this morning she was still not feeling well so she came in to get checked Related Data Home Medications Medication Instructions Recorded Confirmed fluoxetine 20 mg capsule 20 mg PO DAILY Anxiety 12/18/21 04/04/22 Previous Rx's Medication Instructions Recorded potassium chloride 10 mEq 10 meq PO DAILY #7 tabs 04/04/22 tablet,extended release(part/cryst) azithromycin 250 mg tablet See Rx Instructions PO .COMPLEX 5 10/14/22 (Zithromax Z-Flip) days #6 tabs methylprednisolone 4 mg tablets in See Rx Instructions .Route 10/14/22 a dose pack (Medrol (Flip)) .COMPLEX 6 days #21 tabs Allergies Allergy/AdvReac Type Severity Reaction Status Date / Time latex [LATEX] Allergy Unknown Verified 08/23/21 15:16 Worker's Comp Is this a Worker's Comp case?: No [facility] Disclaime
[2022-10-14 10:22] LABS: UTC Strep Screen (Rapid) Negative (Negative)
[2022-10-14 10:23] LABS: UTC Influenza A Antigen Negative (Negative); UTC Influenza B Antigen Negative (Negative)
[2022-10-14 10:28] VITALS: BP 109/73; PULSE 69; RESP 18; TEMP 36.9; O2SAT 98
== END 2022-10-14 10:29 | disposition home or self-care (01) ==
PROVIDERS: Emergency Provider Nurse Practitioner; PCP Nurse Practitioner Family
DX: J02.9 Acute pharyngitis, unspecified (principal); R05.9 Cough, unspecified; F17.210 Nicotine dependence, cigarettes, uncomplicated; F41.9 Anxiety disorder, unspecified; F32.A Depression, unspecified
CPT/HCPCS: 87804; 87880; 99212; 99214; G0463

== ENCOUNTER 2022-12-17 11:38 | Emergency (ER) | payer OTHER, SELFPAY ==
[2022-12-17 11:50] VITALS: BP 110/81; PULSE 67; RESP 18; TEMP 36.9; O2SAT 100; BMI 19.5
[2022-12-17 11:59] LABS: Adenovirus,PCR Not Detected (NotDetected); Coronavirus 19, PCR Not Detected (NotDetected); Coronavirus 229E Not Detected (NotDetected); Coronavirus NL63 Not Detected (NotDetected); Coronavirus OC43 Not Detected (NotDetected); Coronovirus HKU1,PCR Not Detected (NotDetected); Human Metapneumovirus Not Detected (NotDetected); Influenza A, PCR Not Detected (NotDetected); Influenza AH1, 2009 Not Detected (NotDetected); Influenza AH1, PCR Not Detected (NotDetected); Influenza AH3,PCR Not Detected (NotDetected); Influenza B, PCR Not Detected (NotDetected); Parainfluenza 1, PCR Not Detected (NotDetected); Parainfluenza 2, PCR Not Detected (NotDetected); Parainfluenza 3, PCR Not Detected (NotDetected); Parainfluenza 4, PCR Not Detected (NotDetected); Respiratory Syncytial Virus Not Detected (NotDetected); Rhinovirus/Enterovirus Not Detected (NotDetected)
--- NOTE | 2022-12-17 12:10 | EXP.UTC ---
Discharge Plan Disposition Patient Disposition: Home, Self-Care Condition: Good Referrals Follow up/Referrals: Hardy Yanez MD [Primary Care Provider] - See instructions Activity Restrictions/Add. Instructions Additional Instructions/Restrictions: *Monitor Temp, Over the counter Motrin or Tylenol as directed/as needed Tylenol every 4 hours and Motrin every 6 hours (as long as your family doctor has told you that you can take it) for fever or pain. and straight to ER if unable to lower temp less than 101.0 after medication given *Warm salt water gargles may help to soothe the throat *Throat Lozenges? *Warm fluids like tea with honey may help to soothe the throat? *Sleep elevated *Humidifier/Vaporizer *Flonase 2 sprays in each nostril daily but be aware that it may take 2-3 days before you notice improvement *Bromfed may cause drowsiness. Know how it effects you (your child) before driving, caring for small child, or sending your child to school. Not other antihistamines/allergy medications while taking bromfed Your throat swab was sent for culture. Those results are typically sent to your primary care. Be sure to follow up in 2-3 days with your family doctor/primary care physician if no improvement so they can review those result and treat if necessary. If you don?t have a primary care doctor, I recommend you get one but in the mean time, you will have to return to a walk in clinic Follow up IMMEDIATELY for new or worsening symptoms or no Noticeable improvement over the next 48-72 hours. 911 for difficulty breathing or swallowing You were tested for today for Upper Respiratory Panel with COVID19 your test result should be back in the next 24 hours You may check your results on the [facility] My [facility] Portal if you are COVID positive you will need to quarantine for 5 days Clinical Impressions Clinical Impression: Viral upper respiratory illness Instructions Patient Instructions: DI for Viral Upper Respiratory Infection -- Adult, Sore Throat Discharge ED Provider: Selma Mcghee [facility] H[place] General Stated complaint: cough, congestion, body aches Mode of Arrival: Ambulatory Source of Information: Patient Limitations: No Limitations Time Seen by Provider: 12/17/22 12:10 Description of Symptoms (Recalled from Triage Doc. 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 Medical History Anxiety Depression Kidney stone Migraine Urinary tract infection Surgical History History of hysterectomy History of tubal ligation Social History Smoking Status: Current every day smoker tobacco type: cigarettes packs per day: 1 second hand exposure: No alcohol intake: never substance use type: denies use current occupational status: other Travel in the last 8 weeks: None household members: family celeste
[2022-12-17 12:11] LABS: UTC Strep Screen (Rapid) Negative (Negative)
[2022-12-17 12:18] VITALS: BP 110/81; PULSE 67; RESP 18; TEMP 36.9; O2SAT 100
== END 2022-12-17 12:20 | disposition home or self-care (01) ==
PROVIDERS: Emergency Provider Nurse Practitioner; PCP Family Medicine
DX: J06.9 Acute upper respiratory infection, unspecified (principal); B34.9 Viral infection, unspecified; R05.9 Cough, unspecified; R09.81 Nasal congestion; R07.0 Pain in throat; R51.9 Headache, unspecified; Z20.822 Contact with and (suspected) exposure to COVID-19; F17.210 Nicotine dependence, cigarettes, uncomplicated
CPT/HCPCS: 87581; 87632; 87635; 87798; 87880; 99212; 99213; G0463

== ENCOUNTER 2022-12-28 17:17 | Emergency (ER) | payer OTHER, SELFPAY ==
[2022-12-28 17:18] VITALS: BP 120/59; PULSE 99; RESP 16; TEMP 37.5; O2SAT 98; BMI 20.5
--- NOTE | 2022-12-28 17:19 | EXP.UTC ---
Discharge Plan Disposition Patient Disposition: Home, Self-Care Condition: Good Prescriptions Prescriptions: New prednisone 10 mg tablet 10 mg PO BID 3 Days Qty: 6 0RF amoxicillin [amoxicillin] 875 mg tablet 875 mg PO Q12H Qty: 20 0RF iwxjhkzwculuocc-rotnlbkeh-KT [Bromfed DM] 2-30-10 mg/5 mL Syrup 5 ml PO Q6H PRN (Reason: Cough) Qty: 240 0RF Referrals Follow up/Referrals: Hardy Yanez MD [Primary Care Provider] - See instructions Activity Restrictions/Add. Instructions Additional Instructions/Restrictions: Drink plenty of fluids. Take tylenol or ibuprofen for pain or fever. Take the medications as directed. Follow up with your regular doctor. GO TO THE ER FOR ANY WORSENING SYMPTOMS Clinical Impressions Clinical Impression: Pharyngitis, Acute viral syndrome Instructions Patient Instructions: Sore Throat, DI for Pharyngitis/Tonsillopharyngitis -- Adult, DI for Viral Syndrome Discharge ED Provider: Theron Rowe [facility] General Stated complaint: fever, body aches, h/a, sore throat,ear pain Time Seen by Provider: 12/28/22 17:19 History of Present Illness Provider Complaint: She states that for the past 2 days she has had worsening sore throat, chills, body aches and malaise. Related Data Previous Rx's Medication Instructions Recorded amoxicillin 875 mg tablet 875 mg PO Q12H #20 tabs 12/28/22 tpxdejqtuvjdytw-fgcruurpkkzhtvf-DX 5 ml PO Q6H PRN Cough #240 mL 12/28/22 2 mg-30 mg-10 mg/5 mL oral syrup (Bromfed DM) prednisone 10 mg tablet 10 mg PO BID 3 days #6 tabs 12/28/22 Allergies Allergy/AdvReac Type Severity Reaction Status Date / Time latex [LATEX] Allergy Unknown Verified 08/23/21 15:[address] [facility] Disclaimer: The information contained in this section may have been updated after the patient was seen, as this information can be updated by other users. Medical History Anxiety Depression Kidney stone Migraine Urinary tract infection Surgical History History of hysterectomy History of tubal ligation Social History Smoking Status: Current every day smoker tobacco type: cigarettes packs per day: 1 second hand exposure: No alcohol intake: never substance use type: denies use current occupational status: other Travel in the last 8 weeks: None household members: family housing: house number of children: 2 current occupation: [employer] current occupational exposures/hazards: No caffeine: Yes ROS Obtained: Yes All systems reviewed & no additional complaints except as documented Constitutional Constitutional: Reports chills and Reports fever(s) Eyes Eyes: Denies eye discharge ENT Ears, Nose, Mouth, and Throat: Reports as per HPI Cardiovascular Cardiovascular: Denies chest pain Respiratory Respiratory: Denies chest congestion and Reports cough Gastrointestinal Gastrointestingal: Reports nausea; Denies abdominal pain, constipation, cramping, diarrhea or vomiting Musculoskeletal Musculoskeletal: Denies arthralgias Integumentary/Breasts Skin/Breast: Denies rash Neurologic Neurologic: Denies paresthesias Physical Exam General General appearance: alert and in no apparent distress Head Head exam: atraumatic, normocephalic and normal inspection Eye Eye exam: Present normal appearance, PERRL and EOMI ENT ENT exam: Present mucous membranes moist and normal external ear exam Expanded ENT Exam TM/Canal exam: Bilateral TM: erythema and bulging Nose exam: Absent sinus tenderness Mouth exam: Present normal external inspection; Absent drooling Teeth exam: Present normal inspection Throat exam: Present tonsillar erythema, tonsillomegaly and tonsillar exudate Neck Neck exam: Present normal inspection, full ROM and trachea midline; Absent tenderness, meningismus or lymphadenopathy Chest Chest inspect
[2022-12-28 17:36] LABS: UTC Influenza A Antigen Negative (Negative); UTC Influenza B Antigen Negative (Negative); UTC Strep Screen (Rapid) Negative (Negative)
[2022-12-28 18:19] VITALS: BP 120/59; PULSE 99; RESP 20; TEMP 37.5; O2SAT 98
== END 2022-12-28 18:19 | disposition home or self-care (01) ==
PROVIDERS: Emergency Provider Nurse Practitioner Family; PCP Family Medicine
DX: J02.9 Acute pharyngitis, unspecified (principal); B34.9 Viral infection, unspecified; R50.9 Fever, unspecified; R51.9 Headache, unspecified; H92.03 Otalgia, bilateral; F17.210 Nicotine dependence, cigarettes, uncomplicated
CPT/HCPCS: 87635; 87804; 87880; 99212; 99214; G0463

== ENCOUNTER 2023-09-26 08:11 | Outpatient (CLI) | payer OTHER, SELFPAY ==
--- NOTE | 2023-09-26 08:11 | US_ITS ---
PROCEDURE: US TRANSVAGINAL CLINICAL INDICATION: pelvic pain and dyspareunia COMPARISON: US US TRANSVAGINAL from 12/22/2020 FINDINGS: Transvaginal sonographic images of the pelvis were obtained. UTERUS: Surgically absent. The vaginal vault is intact. LEFT OVARY: 1.5cmx2.1cmx2.6cm with a volume of 4.2ml. There are multiple small peripheral follicles giving the ovary a polycystic look. RIGHT OVARY: 3.7 cmx 1.9 cmx1.5 cm with a volume of 5.4ml. There are several small peripheral follicles. Both ovaries are seen and appear normal. Doppler flow to both ovaries are seen. There is no fluid in the cul-de-sac. IMPRESSION: 1. The uterus is surgically absent and vaginal vault is intact. 2. Both ovaries are seen and appear polycystic. 3. No fluid in the cul-de-sac. Dictated by: Jimmy Medel MD 09/26/2023 10:56 Jimmy Medel MD in [place] 09/26/2023 10:56
== END 2023-09-26 23:59 | disposition home or self-care (01) ==
LOC: RAD 08:11
PROVIDERS: PCP Family Medicine; Visit Provider Nurse Practitioner Obstetrics & Gynecology
DX: R10.2 Pelvic and perineal pain (principal); N94.10 Unspecified dyspareunia
CPT/HCPCS: 76830

== ENCOUNTER 2023-12-06 09:55 | Emergency (ER) | payer OTHER, SELFPAY ==
[2023-12-06 10:12] VITALS: BP 112/68; PULSE 69; RESP 20; TEMP 36.6; O2SAT 100; BMI 18.3
--- NOTE | 2023-12-06 10:29 | ED_ITS ---
Discharge Plan Disposition Patient Disposition: Home, Self-Care Condition: Good Prescriptions Prescriptions: New loratadine [Allergy Relief (loratadine)] 10 mg tablet 10 mg PO DAILY Qty: 30 0RF fluticasone propionate [Flonase Allergy Relief] 50 mcg/actuation spray,suspension 1 - 2 spray intranasal DAILY Qty: 16 0RF Rx Instructions: administer into each nostril daily Referrals Follow up/Referrals: Alanna Infante APRN [Primary Care Provider] - See instructions Activity Restrictions/Add. Instructions Additional Instructions/Restrictions: Take allergy medication as prescribed Use flonase daily as prescribed Humidifier may help with nasal congestion and cough Follow up with your Family Doctor if no improvement or any worsening symptoms Clinical Impressions Clinical Impression: Eustachian tube dysfunction Instructions Patient Instructions: DI for Eustachian Tube Dysfunction-Adult, Loratadine Print Language Print Language: Moroccan Discharge ED Provider: Selma Mcghee [facility] [place] HPI General Stated complaint: ear pain both ears Mode of Arrival: Ambulatory Source of Information: Patient Time Seen by Provider: 12/06/23 10:29 Description of Symptoms (Recalled from Triage Doc. by RN): EAR ACHE BILATERALLY X3DAYS HEENT Symptoms (Recalled from RN notes): Yes Resp Symptoms (Recalled from RN notes): No Skin Symptoms (Recalled from RN notes): No MS Symptoms (Recalled from RN notes): No Functional Status (Recalled from RN notes): WNL History of Present Illness Provider Complaint: Patient states that she has been having bilateral ear pain and fullness for about 3 days States that she feels pressure in her ears and it makes them achy and hurting down into the sides of neck and pop and crack Related Data Previous Rx's ?Medication ?Instructions ?Recorded fluticasone propionate 50 1 - 2 spray intranasal DAILY #16 12/06/23 mcg/actuation nasal grams spray,suspension (Flonase Allergy Relief) loratadine 10 mg tablet (Allergy 10 mg PO DAILY #30 tabs 12/06/23 Relief (loratadine)) Allergies Allergy/AdvReac Type Severity Reaction Status Date / Time latex [LATEX] Allergy Unknown Verified 09/20/23 10:24 Worker's Comp Is this a Worker's Comp case?: No [facility] Disclaimer: The information contained in this section may have been updated after the patient was seen, as this information can be updated by other users. Medical History Anxiety Depression Urinary tract infection Kidney stone Migraine Surgical History History of tubal ligation History of hysterectomy Family History Other No significant family history Social History Smoking Status: Current every day smoker tobacco type: cigarettes packs per day: 1 second hand exposure: No alcohol intake: never substance use type: denies use current occupational status: other Travel in the last 8 weeks: None household members: family housing: house number of children: 2 current occupation: [employer] current occupational exposures/hazards: No caffeine: Yes ROS Obtained: Yes All systems reviewed & no additional complaints except as documented and Yes Systems reviewed as appropriate & no additional complaints except as documented Constitutional Constitutional: Reports system reviewed and no additional complaints, except as documented and Reports as per HPI ENT Ears, Nose, Mouth, and Throat: Reports system reviewed and no additional complai nts, except as documented, Reports as per HPI and Reports otalgia Cardiovascular Cardiovascular: Reports system reviewed and no additional complaints, except as documented and Reports as per HPI Respiratory Respiratory: Reports system reviewed and no additional complaints, except as documented and Reports as per HPI Gastrointestinal Gastrointestingal: Reports system reviewed and no additional complaints, except as documented and as per HPI Physical Exam General General appearance: alert and in no apparent distress ENT ENT exam: Present mucous membranes moist Expanded ENT Exam TM/Canal exam: Bilateral TM: bulging (clear fluid noted no redness) Respiratory Respiratory exam: Present normal lung sounds bilaterally; Absent respiratory distress or wheezes Cardiovascular Cardiovascular exam: Present regular rate, normal rhythm and normal heart sounds Neurological Exam Neurological exam: Present alert, oriented X3 and normal gait Medical Decision Making Medical Records Screening: Per USPSTF and CDC recommendations, given the prevalence of disease in our region, it is our hospital?s policy to screen for HIV and viral Hepatitis for all patients aged 18 and over and those with ongoing risk factors. Liborio Inquiry Pt receiving controlled substance: No Liborio was queried for this patient: No Vital Signs: 12/06/23 10:12 Temperature 98 F Temperature Source Oral Pulse Rate [Left Radial] 69 Respiratory Rate 20 Blood Pressure [Left Arm] 112/68 Blood Pressure Mean [Left Arm] 82 02 Sat by Pulse Oximetry 100
[2023-12-06 10:35] VITALS: BP 112/68; PULSE 69; RESP 20; TEMP 36.6
== END 2023-12-06 10:39 | disposition home or self-care (01) ==
PROVIDERS: Emergency Provider Nurse Practitioner; PCP Nurse Practitioner
DX: H69.93 Unspecified Eustachian tube disorder, bilateral (principal); H92.03 Otalgia, bilateral
CPT/HCPCS: 99212; G0381

== ENCOUNTER 2024-02-10 11:53 | Emergency (ER) | payer OTHER, SELFPAY ==
[2024-02-10 12:15] VITALS: BP 116/68; PULSE 69; RESP 17; TEMP 37; O2SAT 98; BMI 20.9
[2024-02-10 12:39] LABS: UTC Strep Screen (Rapid) Negative (Negative)
--- NOTE | 2024-02-10 12:39 | ED_ITS ---
Discharge Plan Disposition Patient Disposition: Home, Self-Care Condition: Good Prescriptions Prescriptions: New azithromycin [Zithromax Z-Flip] 250 mg tablet See Rx Instructions .ROUTE .COMPLEX 5 Days Qty: 6 0RF Rx Instructions: For 250 mg dose pack: take 500 mg today (day 1), then 250 mg for 4 days (days 2-5) Referrals Follow up/Referrals: Alanna Infante APRN [Primary Care Provider] - See instructions Activity Restrictions/Add. Instructions Additional Instructions/Restrictions: *Monitor Temp, Over the counter Motrin or Tylenol as directed/as needed Tylenol every 4 hours and Motrin every 6 hours (as long as your family doctor has told you that you can take it) for fever or pain. and straight to ER if unable to lower temp less than 101.0 after medication given *Warm salt water gargles may help to soothe the throat *Throat Lozenges? *Warm fluids like tea with honey may help to soothe the throat? *Sleep elevated *Humidifier/Vaporizer Your throat swab was sent for culture. Those results are typically sent to your primary care. Be sure to follow up in 2-3 days with your family doctor/primary care physician if no improvement so they can review those result and treat if necessary. If you don?t have a primary care doctor, I recommend you get one but in the mean time, you will have to return to a walk in clinic Follow up IMMEDIATELY for new or worsening symptoms or no Noticeable improvement over the next 48-72 hours. 911 for difficulty breathing or swallowing Clinical Impressions Clinical Impression: Pharyngitis Instructions Patient Instructions: Sore Throat Print Language Print Language: Zambian Discharge ED Provider: Selma Mcghee [facility] [place] HPI General Stated complaint: sore throat Mode of Arrival: Ambulatory Source of Information: Patient Limitations: No Limitations Time Seen by Provider: 02/10/24 12:39 Description of Symptoms (Recalled from Triage Doc. by RN): PATIENT C/O SORE THROAT AND LEFT EAR PAIN SINCE YESTERDAY HEENT Symptoms (Recalled from RN notes): Yes Resp Symptoms (Recalled from RN notes): No Skin Symptoms (Recalled from RN notes): No MS Symptoms (Recalled from RN notes): No Functional Status (Recalled from RN notes): WNL History of Present Illness Provider Complaint: Patient states that she has been having sore throat and pain in her left ear since yesterday States that her throat hurts when she swallows and felt like she had little blisters back there States today not any better so she came in to get it checked Related Data Previous Rx's ?Medication ?Instructions ?Recorded azithromycin 250 mg tablet See Rx Instructions PO .COMPLEX 5 02/10/24 (Zithromax Z-Flip) days #6 tabs Allergies Allergy/AdvReac Type Severity Reaction Status Date / Time latex (LATEX) Allergy Unknown Verified 09/20/23 10:24 Worker's Comp Is this a Worker's Comp case?: No [facility] Disclaimer: The information contained in this section may have been updated after the patient was seen, as this information can be updated by other users. Medical History Anxiety Depression Urinary tract infection Kidney stone Migraine Surgical History History of tubal ligation History of hysterectomy Family History Other No significant family history Social History Smoking Status: Current every day smoker tobacco type: cigarettes packs per day: 1 second hand exposure: No alcohol intake: never substance use type: denies use current occupational status: other Travel in the last 8 weeks: None household members: family housing: house number of children: 2 current occupation: [employer] current occupational exposures/hazards: No caffeine: Yes Have you lived/traveled outside [place] in past 30 days?: No Contact w/someone who lives/traveled outside US past 30 days?: No Exposure to someone with infectious disease in past 14 days?: No Do you have a fever (greater than 100.4 F or 38 C)?: No Have you tested positive for COVID-19: No Exposed to someone with COVID-19 in past 14 days?: No Do you have a sore throat?: No Do you have a cough?: No Do you have any weakness?: No Do you have any diarrhea?: No Are you experiencing any unusual bleeding?: No Do you have any muscle aches/pain?: No Do you have any abdominal pain?: No Are you experiencing loss of taste or smell?: No ROS Obtained: Yes All systems reviewed & no additional complaints except as documented and Yes Systems reviewed as appropriate & no additional complaints except as documented Constitutional Constitutional: Reports system reviewed and no additional complaints, except as documented and Reports as per HPI ENT Ears, Nose, Mouth, and Throat: Reports system reviewed and no additional complaints, except as documented, Reports as per HPI, Reports otalgia and Reports sore throat Cardiovascular Cardiovascular: Reports system reviewed and no additional complaints, except as documented and Reports as per HPI Respiratory Respiratory: Reports system reviewed and no additional complaints, except as documented and Reports as per HPI Gastrointestinal Gastrointestingal: Reports system reviewed and no additional complaints, except as documented and as per HPI Physical Exam General General appearance: alert and in no apparent distress ENT ENT exam: Present mucous membranes moist Expanded ENT Exam TM/Canal exam: Left TM: erythema (mild redness noted ) Nose exam: Absent sinus tenderness Throat exam: Present tonsillar erythema (small patchy like area noted) Respiratory Respiratory exam: Present normal lung sounds bilaterally; Absent respiratory distress or wheezes Cardiovascular Cardiovascular exam: Present regular rate, normal rhythm and normal heart sounds Abdominal Exam Abdominal exam: Present soft and normal bowel sounds; Absent distention or tenderness Neurological Exam Neurological exam: Present alert, oriented X3 and normal gait Medical Decision Making Medical Records Screening: Per USPSTF and CDC recommendations, given the prevalence of disease in our region, it is our hospital?s policy to screen for HIV and viral Hepatitis for all patients aged 18 and over and those with ongoing risk factors. Liborio Inquiry Pt receiving controlled substance: No Liborio was queried for this patient: No Vital Signs: 02/10/24 12:15 Temperature 98.6 F Temperature Source Oral Pulse Rate [Left Brachial] 69 Respiratory Rate 17 Blood Pressure [Left Arm] 116/68 Blood Pressure Mean [Left Arm] 84 Blood Pressure Source [Left Arm] Automatic Cuff Blood Pressure Position [Left Arm] Sitting 02 Sat by Pulse Oximetry 98 Oxygen Delivery Method Room Air Lab Data Lab results reviewed: Yes I reviewed the patient's lab results.
[2024-02-10 12:51] VITALS: BP 116/68; PULSE 69; RESP 17; TEMP 37; O2SAT 98
== END 2024-02-10 12:53 | disposition home or self-care (01) ==
PROVIDERS: Emergency Provider Nurse Practitioner; PCP Nurse Practitioner
DX: J02.9 Acute pharyngitis, unspecified (principal)
CPT/HCPCS: 87880; 99213; G0381